=== PATIENT | female | born 1955 | race Caucasian/White ===

== ENCOUNTER → 2017-05-02 | Outpatient (CLI) | payer SELFPAY | PROVIDERS: Visit Provider Internal Medicine | DX: B39.4 Histoplasmosis capsulati, unspecified (principal); M06.9 Rheumatoid arthritis, unspecified | CPT/HCPCS: 71250 ==

== ENCOUNTER 2017-07-22 09:39 | Emergency (ER) | payer SELFPAY ==
[2017-07-22 10:05] VITALS: BP 121/85; PULSE 107; RESP 18; TEMP 38.1; O2SAT 99; BMI 23.0
--- NOTE | 2017-07-22 10:18 | HMH.EDUTC ---
[facility] [place] Disposition Clinical Impression: Viral gastroenteritis Disposition: Home, Self-Care Condition on Discharge: Good Instructions: DI for Viral Gastroenteritis -- Adult Additional Instructions: * Monitor Temp. Seek treatment if fever worsens. Tylenol every 4 hours as needed no more then 5 times a day or 4000mg in 24 hours and/or ibuprofen every 6 hours as needed no more then 3200mg in 24 hours (as long as your primary care doctor has told you that it is ok to take both) for fever/aches/pain. * Follow up immediately for new or worsening symptoms OR no noticeable improvement over the next 48 hours. * Increase fluids. Water, gatorade, powerade, juice OR pedialyte with limited formula/dairy in children. * No food is ok as long as you or your child is drinking. Once ready to eat, start bland. bananas, rice, applesauce, toast * Contagious until no diarrhea, vomiting, fever x 24 hours without medication * Avoid anti-diarrheals unless told otherwise. Best to let the virus run its course. * Zofran as needed. REMEMBER we gave you a dose here in clinic. Your urine showed trace blood and protein. As we discussed, could be a sign of something to do with your one kidney. No sign of UTI. First step would be to repeat u/a in 7-10 days so BE SURE to follow up with primary care in one week but sooner for new or worsening symptoms. Prescriptions: Ondansetron [Zofran 4mg ODT] 4 mg PO Q8H PRN #10 tab.rapdis PRN Reason: Vomiting Referrals: Tamy Jcakson APRN [Primary Care Provider] - (Follow up IMMEDIATELY for new or worsening symptoms OR no noticeable improvement over the next 48 hours. ALSO be sure to follow up for repeat UA in 7-10 days.) Forms: Work/School Release Time of Disposition: 11:19 Medical Decision Making - Satnam Inquiry Pt receiving controlled substance: No Vital Signs: 07/22/17 10:05 Temperature 100.5 F H Temperature Source Temporal Artery Scan Pulse Rate [Right Radial] 107 H Respiratory Rate 18 Blood Pressure [Right Arm] 121/85 Blood Pressure Mean [Right Arm] 97 02 Sat by Pulse Oximetry 99 Oxygen Delivery Method Room Air - Lab Data Lab results reviewed: Yes: I reviewed the patient's lab results. Lab Results 07/22/17 10:11: Influenza Type A Ag Negative, Influenza Type B Ag Negative 07/22/17 10:26: Urine Color Dark yellow, Urine Appearance Clear, Urine pH 6.0, Ur Specific [place] 1.030, Urine Protein 1+, Urine Glucose (UA) Negative, Urine Ketones Negative, Urine Blood Trace, Urine Nitrate Negative, Urine Bilirubin 1+ A, Urine Urobilinogen 0.2, Ur Leukocyte Esterase Negative Orders (Tests/Meds): ED MEDICATIONS Discontinued Medications Generic Name Dose Route Start Last Admin Trade Name Linda PRN Reason Stop Dose Admin Ondansetron HCl 4 mg 07/22/17 10:31 07/22/17 10:42 Zofran 4mg Odt SL 07/22/17 10:32 4 mg ONCE ONE Administration - Reevaluation(s) Time: 11:15 Reevaluation #1: pt reports she is feeling better. Zofran has helped. Nausea and cramps resolved. Sitting up and looks better. Discussed u/a and appropriate follow up. States + understanding and agrees to follow up with [facility] [place] HPI - General Stated complaint: vomiting,diarrhea Time Seen by Provider: 07/22/17 10:19 Mode of Arrival: Wheelchair Source of Information: Patient Limitations: No Limitations Description of Symptoms (Recalled from Triage Doc. by RN): PT C/O NAUSEA,VOMITING, AND DIARRHEA THAT STARTED LAST NIGHT. HEENT Symptoms (Recalled from RN notes): No Resp Symptoms (Recalled from RN notes): No Skin Symptoms (Recalled from RN notes): No MS Symptoms (Recalled from RN notes): No Functional Status (Recalled from RN notes): NA - History of Present Illness Provider Complaint: c/o n/v/d that started yesterday. Once while at work yesterday. Didn't think much of it. Worsened last night and vomited w/ diarrhea majority of night and this morning. Overnight felt weak but starting to feel somewhat better .
[2017-07-22 10:23] LABS: UTC Influenza A Antigen Negative (Negative); UTC Influenza B Antigen Negative (Negative)
--- NOTE | 2017-07-22 10:26 | ED_ITS ---
[facility] [place] Disposition Clinical Impression: Viral gastroenteritis Disposition: Home, Self-Care Condition on Discharge: Good Instructions: DI for Viral Gastroenteritis -- Adult Additional Instructions: * Monitor Temp. Seek treatment if fever worsens. Tylenol every 4 hours as needed no more then 5 times a day or 4000mg in 24 hours and/or ibuprofen every 6 hours as needed no more then 3200mg in 24 hours (as long as your primary care doctor has told you that it is ok to take both) for fever/aches/pain. * Follow up immediately for new or worsening symptoms OR no noticeable improvement over the next 48 hours. * Increase fluids. Water, gatorade, powerade, juice OR pedialyte with limited formula/dairy in children. * No food is ok as long as you or your child is drinking. Once ready to eat, start bland. bananas, rice, applesauce, toast * Contagious until no diarrhea, vomiting, fever x 24 hours without medication * Avoid anti-diarrheals unless told otherwise. Best to let the virus run its course. * Zofran as needed. REMEMBER we gave you a dose here in clinic. Your urine showed trace blood and protein. As we discussed, could be a sign of something to do with your one kidney. No sign of UTI. First step would be to repeat u/a in 7-10 days so BE SURE to follow up with primary care in one week but sooner for new or worsening symptoms. Prescriptions: Ondansetron [Zofran 4mg ODT] 4 mg PO Q8H PRN #10 tab.rapdis PRN Reason: Vomiting Referrals: Tamy Jackson APRN [Primary Care Provider] - (Follow up IMMEDIATELY for new or worsening symptoms OR no noticeable improvement over the next 48 hours. ALSO be sure to follow up for repeat UA in 7-10 days.) Forms: Work/School Release Time of Disposition: 11:19 Medical Decision Making - Satnam Inquiry Pt receiving controlled substance: No Vital Signs: 07/22/17 10:05 Temperature 100.5 F H Temperature Source Temporal Artery Scan Pulse Rate [Right Radial] 107 H Respiratory Rate 18 Blood Pressure [Right Arm] 121/85 Blood Pressure Mean [Right Arm] 97 02 Sat by Pulse Oximetry 99 Oxygen Delivery Method Room Air - Lab Data Lab results reviewed: Yes: I reviewed the patient's lab results. Lab Results 07/22/17 10:11: Influenza Type A Ag Negative, Influenza Type B Ag Negative 07/22/17 10:26: Urine Color Dark yellow, Urine Appearance Clear, Urine pH 6.0, Ur Specific [place] 1.030, Urine Protein 1+, Urine Glucose (UA) Negative, Urine Ketones Negative, Urine Blood Trace, Urine Nitrate Negative, Urine Bilirubin 1+ A, Urine Urobilinogen 0.2, Ur Leukocyte Esterase Negative Orders (Tests/Meds): ED MEDICATIONS Discontinued Medications Generic Name Dose Route Start Last Admin Trade Name Freq PRN Reason Stop Dose Admin Ondansetron HCl 4 mg 07/22/17 10:31 07/22/17 10:42 Zofran 4mg Odt SL 07/22/17 10:32 4 mg ONCE ONE Administration - Reevaluation(s) Time: 11:15 Reevaluation #1: pt reports she is feeling better. Zofran has helped. Nausea and cramps resolved. Sitting up and looks better. Discussed u/a and appropriate follow up. States + understanding and agrees to follow up with [facility] [place] HPI - General Stated complaint: vomiting,diarrhea Time Seen by Provider: 07/22/17 10:19 Mode of Arrival: Wheelchair Source of Information: Patient Limitations: No Limitations Description of Symptoms (Recalled from Triage Doc. by RN): PT C/O NAUSEA, VOMITING, AND DIARRH
[2017-07-22 10:57] LABS: Apearance,Urine Clear (Clear); Color,Urine Dark Yellow (Yellow)
[2017-07-22 10:58] LABS: Bilirubin,Urine 1+ (Negative); Blood, Urine Trace (Negative); Glucose,Urine (UA) Negative (Negative); Ketones,Urine Negative (Negative); Protein,Urine 1+ (Negative)
[2017-07-22 10:59] LABS: UTC Leukocyte Esterase,Urine Negative (Negative); UTC Nitrate,Urine Negative (Negative); Urobilinogen,Urine 0.2 EU/dl (0.2)
[2017-07-22 11:25] VITALS: BP 125/79; PULSE 98; RESP 20; TEMP 37.8; O2SAT 100
== END 2017-07-22 11:26 | disposition home or self-care (01) ==
PROVIDERS: Emergency Provider Nurse Practitioner Family; PCP Nurse Practitioner
DX: A08.4 Viral intestinal infection, unspecified (principal); I10 Essential (primary) hypertension
CPT/HCPCS: 81003; 87804; 99201

== ENCOUNTER → 2017-08-29 10:21 | Outpatient (POV) | payer SELFPAY ==
[2017-08-29 12:26] LABS: Alanine Aminotransferase 34 U/L (12-78); Alkaline Phosphatase 89 U/L (46-116); Aspartate Amino Transferase 33 U/L (15-37); Bilirubin,Direct 0.2 mg/dL (0.0-0.2); Bilirubin,Total 0.4 mg/dL (0.2-1.0); Total Protein,Serum 7.3 gm/dL (6.4-8.2)
[2017-09-01 16:24] LABS: Histoplasma Gal'mannan Ag Qn U 3.8 ng/mL (.); Histoplasma Gal'mannan Ag Ur Positive (<0.5 ng/mL)
== END ==
PROVIDERS: PCP Nurse Practitioner; Visit Provider Internal Medicine
DX: B39.4 Histoplasmosis capsulati, unspecified (principal); B39.3 Disseminated histoplasmosis capsulati; Z79.899 Other long term (current) drug therapy
CPT/HCPCS: 36415; 80076; 80299; 87385

== ENCOUNTER → 2018-12-11 10:20 | Outpatient (POV) | payer SELFPAY | PROVIDERS: Visit Provider Internal Medicine | DX: Z00.00 Encounter for general adult medical examination without abnormal findings (principal) ==

== ENCOUNTER → 2020-01-21 15:11 | Outpatient (POV) | payer BC, SELFPAY | PROVIDERS: Visit Provider Dermatology | DX: Z00.00 Encounter for general adult medical examination without abnormal findings (principal) ==

== ENCOUNTER → 2020-02-11 08:43 | Outpatient (POV) | payer BC, SELFPAY | PROVIDERS: Visit Provider Dermatology | DX: Z00.00 Encounter for general adult medical examination without abnormal findings (principal) ==

== ENCOUNTER 2021-01-28 18:21 | Emergency (ER) | payer BC, SELFPAY ==
[2021-01-28 18:28] VITALS: BP 139/62; PULSE 89; RESP 16; TEMP 37.7; O2SAT 97; BMI 22.8
--- NOTE | 2021-01-28 18:41 | HMH.EDUTC ---
[facility] [place] Disposition Clinical Impression: URI (upper respiratory infection) Qualifiers: URI type: unspecified URI Qualified Code(s): J06.9 - Acute upper respiratory infection, unspecified Disposition: Home, Self-Care Condition on Discharge: Good Instructions: Ondansetron, Cefdinir, DI for COVID-19 (Suspected or Confirmed ), Preventing the Spread of Coronavirus Discharge Instructions Additional Instructions: *Monitor Temp, Over the counter Motrin or Tylenol as directed/as needed Tylenol every 4 hours and Motrin every 6 hours (as long as your family doctor has told you that you can take it) for fever or pain. and straight to ER if unable to lower temp less than 101.0 after medication given *Warm salt water gargles may help to soothe the throat *Throat Lozenges *Warm fluids like tea with honey may help to soothe the throat *Sleep elevated *Humidifier/Vaporizer Drink extra fluids with and between meals. If you have difficulty drinking, try very small amounts of water or suck on ice chips. ? Avoid fruit juices, as these do not replace minerals and can actually increase diarrhea. ? Children and adults can use sports drinks to replenish electrolytes. Younger children and infants should use products formulated for children, like oral rehydration solutions. ? Eat food in small amounts and let your stomach recover. ? Get lots of rest. You may feel tired or weak. ? No greasy or fried foods for the next 24-48 hours BRAT diet Bananas Rice Apples and [place] ? Make sure to drink plenty of liquids ? Return if needed ? Straight to ER if any life threatening symptoms ? Zofran as prescribed ? Follow up with family doctor in the next 48-72 hours if no improvement or any worsening of symptoms Your throat swab was sent for culture. Those results are typically sent to your primary care. Be sure to follow up in 2-3 days with your family doctor/primary care physician if no improvement so they can review those result and treat if necessary. If you don?t have a primary care doctor, I recommend you get one but in the mean time, you will have to return to a walk in clinic Follow up IMMEDIATELY for new or worsening symptoms or no Noticeable improvement over the next 48-72 hours. 911 for difficulty breathing or swallowing You were tested for today for COVID19 your test result should be back in the next 24-48 hours, you was given handout on how to log onto the [facility] Portal tp check your results if you have trouble logging in or checking your results you may call the [facility] You were given a handout with instructions for Self Quarantine and Self isolation for while you wait on test results and what to do if they are positive If you are positive the Health Dept will be contacting you also Make sure to take your Vitamins Vit. C Vit D and Zinc if you can take them Prescriptions: Cefdinir [Omnicef 300mg Capsule] 300 mg PO BID #20 cap Transmission Status: Received by [id number] Ondansetron [Zofran 4mg ODT] 4 mg PO TIDP PRN #12 tab PRN Reason: Nausea [id number] Referrals: Thalia Calderon APRN [Primary Care Provider] - As needed Time of Disposition: 19:18 Medical Decision Making - Satnam Inquiry Pt receiving controlled substance: No Satnam was queried for this patient: No Vital Signs: 01/28/21 18:28 01/28/21 19:06 Temperature 100 F H 100 F H Temperature Source Oral Pulse Rate 89 Pulse Rate [Left] 89 Respiratory Rate 16 16 Blood Pressure 139/62 Blood Pressure [Right Arm] 139/62 Blood Pressure Mean [Right Arm] 87 02 Sat by Pulse Oximetry 97 - Lab Data Lab results reviewed: Yes: I reviewed the patient's lab results. Lab Results 01/28/21 19:05: Influenza Type A Ag Negative, Influenza Type B Ag Negative 01/28/21 19:05: Strep Scn Rapid Clinic Negative Orders (Tests/Meds): ED MEDICATIONS Discontinued Medications Generic Name Dose Route Start Last Admin Trade Name Freq PRN
[2021-01-28 19:06] VITALS: BP 139/62; PULSE 89; RESP 16; TEMP 37.7
[2021-01-28 19:18] LABS: UTC Influenza A Antigen Negative (Negative); UTC Influenza B Antigen Negative (Negative); UTC Strep Screen (Rapid) Negative (Negative)
== END 2021-01-28 19:33 | disposition home or self-care (01) ==
PROVIDERS: Emergency Provider Nurse Practitioner; PCP Nurse Practitioner Family
DX: U07.1 COVID-19 (principal); J06.9 Acute upper respiratory infection, unspecified; I10 Essential (primary) hypertension
CPT/HCPCS: 87804; 87880; 99203; C9803; G0463; U0003; U0005

== ENCOUNTER → 2022-06-07 10:36 | Outpatient (CLI) | payer BC, SELFPAY ==
--- NOTE | 2022-06-07 10:42 | US_ITS ---
FINAL REPORT CLINICAL HISTORY: HYPOTHYROID FINDINGS: THYROID ULTRASOUND Thyroid gland is normal size. The parenchyma shows normal echogenicity. There is an 8 x 7 x 4 mm mostly solid isoechoic TI-RADS 3 nodule in the right lobe of the thyroid. No other nodules are identified. IMPRESSION: Single 8 mm TI-RADS 3 nodule. No follow-up recommended per TI-RADS criteria. Reviewed, Interpreted and Dictated by Darrell Conteh III, MD Transcribed by Yan Velasco Authenticated and [facility]
== END ==
LOC: RAD 10:36
PROVIDERS: PCP Nurse Practitioner Family; Visit Provider Nurse Practitioner Family
DX: E03.9 Hypothyroidism, unspecified (principal)
CPT/HCPCS: 76536

== ENCOUNTER 2022-11-25 13:04 | Emergency (ER) | payer BC, SELFPAY ==
[2022-11-25 13:05] VITALS: BP 160/72; PULSE 92; RESP 18; TEMP 37.3; O2SAT 99; BMI 22.3
[2022-11-25 13:11] VITALS: BP 160/72; PULSE 90; O2SAT 98
[2022-11-25 13:30] VITALS: BP 158/69; PULSE 90; O2SAT 99
--- NOTE | 2022-11-25 13:45 | CA_ITS ---
FINAL REPORT CLINICAL HISTORY: non traumatic RLE pain PAIN EXTENDING FROM RT HIP TO RT KNEE, FINDINGS: DUPLEX VENOUS SONOGRAPHY OF THE RIGHT LOWER EXTREMITY Multiple transverse and longitudinal scans were performed of the femoropopliteal deep venous system, with augmentation and compression maneuvers. Normal phasic flow was noted in the visualized deep venous system. No intraluminal increased echogenicity is noted to suggest thrombus. There is normal compression and augmentation of the venous structures. No abnormal venous collaterals are seen. Note is made of a popliteal cyst. IMPRESSION: No evidence of deep venous thrombosis of the right lower extremity. Reviewed, Interpreted and Dictated by Pamela Fletcher MD Transcribed by Beverley Mays Authenticated and [facility]
--- NOTE | 2022-11-25 13:45 | XR_ITS ---
FINAL REPORT CLINICAL HISTORY: non traumatic RLE pain COMPARISON: None FINDINGS: AP and frog leg views of the right hip were obtained. There is no prior exam for comparison. There is no acute osseous abnormality of the pelvis or right hip. Joint space is preserved. Soft tissues are within normal limits. IMPRESSION: No acute osseous abnormality of the right hip. If pain persists, MR is recommended. Reviewed, Interpreted and Dictated by Pamela Fletcher MD Transcribed by Vera Gaxiola Authenticated and [facility]
--- NOTE | 2022-11-25 13:45 | XR_ITS ---
FINAL REPORT CLINICAL HISTORY: non traumatic RLE pain COMPARISON: None FINDINGS: Two views of the right femur were obtained. There is no acute osseous abnormality of the right femur. Hip and knee are intact. There is no acute soft tissue abnormality. IMPRESSION: No acute osseous abnormality. Reviewed, Interpreted and Dictated by Pamela Fletcher MD Transcribed by Vera Gaxiola Authenticated and [facility]
--- NOTE | 2022-11-25 13:45 | PC.NURSE ---
Provider at bedside.
--- NOTE | 2022-11-25 13:48 | HMH.EDGENADL ---
Discharge Plan Disposition Patient Disposition: Home, Self-Care Prescriptions Prescriptions: No Action prednisone 5 MG tablet 5 tab PO DAILY Patient Comments: TAKE 1 TABLET BY MOUTH EVERY DAY levothyroxine 100 tablet 100 mg PO DAILY metoprolol tartrate 50 MG tablet 50 mg PO DAILY hydroxychloroquine 200 MG tablet 200 mg PO DAILY ondansetron 4 MG tablet,disintegrating 4 mg PO TIDP PRN (Reason: Nausea) Qty: 12 0RF cefdinir 300 MG capsule 300 mg PO BID Qty: 20 0RF Referrals Follow up/Referrals: Thalia Calderon APRN [Primary Care Provider] - See instructions Activity Restrictions/Add. 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 Your sodium was also little bit depressed at 128. I would recommend you follow-up with the primary care doctor regarding your low sodium please make sure you are drinking plenty of fluids. Return with any worsening symptoms including fever redness or other concerns. Clinical Impressions Clinical Impression: Myalgia, pelvic region and thigh, Acute hyponatremia, Arthritis of hip Discharge ED Provider: Demetri Tse General Adult HPI General Chief complaint: PAIN Stated complaint: pain in Rt hip to knee Time Seen by Provider: 11/25/22 13:33 Mode of Arrival: Wheelchair Source of Information: Patient Limitations: No Limitations Description of Symptoms (Recalled from ER Triage Doc. by RN): c/o pain that goes from her right groin to her right knee, denies any injury, extremity is equal to left extremity in size, color and warmth. Some nausea due to the pain. Family is concerned for a blood clot due to pt having a pacemaker. History of Present Illness HPI narrative: 67-year-old female here with right lower extremity pain she states that she has pain radiating from her right hip down to her knee with significant tenderness in the anterior and lateral aspect of her muscle bellies. No swelling no fevers or chills no redness or warmth to the area. No change in urine output. No recent change in medications. She does walk extend amounts of time at [employer] but she had this job for 20 years and this is not a new different contacts for her. No history of any DVTs or PEs. No vomiting or diarrhea. Related Data Home Medications Medication Instructions Recorded Confirmed hydroxychloroquine 200 mg tablet 200 mg PO DAILY bp 02/12/19 03/19/19 levothyroxine 100 mcg tablet 100 mg PO DAILY hormone 02/12/19 03/19/19 metoprolol tartrate 50 mg tablet 50 mg PO DAILY blood pressure 02/12/19 03/19/19 prednisone 5 mg tablet 5 tab PO DAILY Arthritis 02/12/19 03/19/19 Previous Rx's Medication Instructions Recorded cefdinir 300 mg capsule 300 mg PO BID #20 caps 01/28/21 ondansetron 4 mg disintegrating 4 mg PO TIDP PRN Nausea #12 tabs 01/28/21 tablet Allergies Allergy/AdvReac Type Severity Reaction Status Date / Time No Known Allergies Allergy Verified 02/12/19 08:15 [facility] Disclaimer: The information contained in this section may have been updated after the patient was seen, as this information can be updated by other users. Social History Smoking Status: Never smoker alcohol intake: never current occupational status: employed Travel in the last 8 weeks: None household members: none housing: house current occupation: [employer] current occupational exposures/hazards: No caffeine: Yes ROS Obtained: Yes All systems reviewed & no additional complaints except as documented Physical Exam General General appearance: alert Respiratory Respiratory exam: Present normal lung sounds bilaterally Cardiovascular Cardiovascular exam: Present regular rate; Absent tachycardia Extremities Exam Extremities exam: Present other (Pain with internal/external rotation on the lateral aspect of the right hip no swelling or soft tissue abnormalities no warmth or erythem
--- NOTE | 2022-11-25 13:49 | PC.NURSE ---
vascular aware of doppler of lower right ext
[2022-11-25 14:00] LABS: Basophils % 0.4 % (0.1-2.0); Eosinophils # 0.1 K/mm3 (0.0-0.4); Eosinophils % 0.9 % (0.1-12.0); Hemoglobin 11.8 g/dL (12.2-16.2); Lymphocytes # 0.9 K/mm3 (0.7-4.5); Mean Corpuscular HGB Conc 33.7 g/dL (31.8-35.4); Mean Corpuscular Hemoglobin 31.4 pg (27.0-31.2); Mean Corpuscular Volume 93.4 fl (81-99); Mean Platelet Volume 6.4 fl (7.4-10.4); Monocytes # 0.8 K/mm3 (0.1-1.0); Monocytes % 8.7 % (1.7-9.3); Neutrophils # 7.3 K/mm3 (1.8-7.8); Neutrophils % 80.1 % (37.0-80.0); Platelet Count 383 K/mm3 (142-424); Red Blood Count 3.75 M/mm3 (4.20-5.40); Red Cell Distribution Width 13.8 % (11.5-17.5); White Blood Count 9.1 K/mm3 (4.8-10.8)
--- NOTE | 2022-11-25 14:09 | PC.NURSE ---
Pt assisted into bed. Additional warm blanket provided. Pt updated on plan of care. Vascular at bedside.
[2022-11-25 14:14] LABS: Alanine Aminotransferase 21 U/L (12-78); Albumin Level 4.2 g/dl (3.5-5.0); Albumin/Globulin Ratio 1.1 (1.1-1.8); Alkaline Phosphatase 112 U/L (38-126); Anion Gap 9.6 mEq/L (5-15); Aspartate Amino Transferase 40 U/L (14-36); Bilirubin,Total 0.4 mg/dl (0.2-1.3); Blood Urea Nitrogen 15 mg/dl (7-17); Calcium 9.9 mg/dl (8.4-10.2); Carbon Dioxide 26 mmol/L (22.0-30.0); Chloride 97 mmol/L (98-107); Creatine Kinase 123 U/L (30-135); Creatinine Clearance Estimated 48 mL/min (50-200); Estimated Glomerular Filt Rate 83 ml/min (>60); GFR (African American) 100 ML/MIN (>60); Globulin 3.7 g/dL (1.3-3.2); Glucose 108 mg/dl (74-100); Magnesium 1.7 mg/dl (1.6-2.3); Potassium 4.6 mmoL/L (3.5-5.1); Sodium 128 mmol/L (136-145); Total Protein,Serum 7.9 g/dl (6.3-8.2)
--- NOTE | 2022-11-25 14:32 | PC.NURSE ---
ROUNDED ON PT HELPED PUT PANTS BACK ON NOTHING ELSE NEEDED CALL LIGHT AT BS
[2022-11-25 15:37] VITALS: BP 158/69; PULSE 90; RESP 18; TEMP 37.3; O2SAT 99
== END 2022-11-25 15:39 | disposition home or self-care (01) ==
PROVIDERS: Emergency Provider Student in an Organized Health Care Education/Training Program; PCP Nurse Practitioner Family
DX: E87.1 Hypo-osmolality and hyponatremia; M16.11 Unilateral primary osteoarthritis, right hip; M79.651 Pain in right thigh
CPT/HCPCS: 73502; 73552; 80053; 82550; 83735; 85025; 93971; 96360; 99285

== ENCOUNTER 2023-06-01 13:39 | Emergency (ER) | payer BC, SELFPAY ==
[2023-06-01] VITALS (25 sets, daily range): BP systolic 68–146; BP diastolic 33–85; PULSE 47–92; RESP 14–22; TEMP 36.6–36.7; O2SAT 85–100; BMI 42.0; BMI 22.3
--- NOTE | 2023-06-01 13:43 | ECG_ITS ---
APPROVED REPORT Exam: Resting ECG HR:65 bpm ECG Measurements Heart Rate 65 AXES WY 209 P 72 QRSd 147 QRS 99 QT 473 T 68 QTc 484 Conclusion ELECTRONIC VENTRICULAR PACEMAKER ABNORMAL RHYTHM ECG UNCONFIRMED REPORT Electronically signed by : Michele Mckinney MD 06/03/2023 13:42:19
[2023-06-01 14:01] LABS: Chloride 102 mmol/L (98-107); Potassium 4.1 mmoL/L (3.5-5.1); Sodium 133 mmol/L (136-145)
[2023-06-01 14:03] LABS: Blood Urea Nitrogen 21 mg/dl (7-17); Creatinine Clearance Estimated 36 mL/min (50-200); Estimated Glomerular Filt Rate 40 ml/min (>60); GFR (African American) 49 ML/MIN (>60)
[2023-06-01 14:04] LABS: Alanine Aminotransferase 24 U/L (12-78); Albumin Level 4.2 g/dl (3.5-5.0); Albumin/Globulin Ratio 1.1 (1.1-1.8); Alkaline Phosphatase 81 U/L (38-126); Anion Gap 14.1 mEq/L (5-15); Aspartate Amino Transferase 47 U/L (14-36); Bilirubin,Total 0.7 mg/dl (0.2-1.3); Carbon Dioxide 21 mmol/L (22.0-30.0); Globulin 3.7 g/dL (1.3-3.2); Glucose 138 mg/dl (74-100); Total Protein,Serum 7.9 g/dl (6.3-8.2)
[2023-06-01 14:09] LABS: Basophils # 0.1 K/mm3 (0-0.2); Basophils % 0.5 % (0.1-2.0); Eosinophils # 0.1 K/mm3 (0.0-0.4); Eosinophils % 0.9 % (0.1-12.0); Hematocrit 38.8 % (37.0-47.0); Hemoglobin 12.6 g/dL (12.2-16.2); Lymphocytes # 2.5 K/mm3 (0.7-4.5); Lymphocytes % 24.1 % (10-50); Mean Corpuscular HGB Conc 32.4 g/dL (31.8-35.4); Mean Corpuscular Hemoglobin 30.6 pg (27.0-31.2); Mean Corpuscular Volume 94.4 fl (81-99); Mean Platelet Volume 7.7 fl (7.4-10.4); Monocytes # 0.6 K/mm3 (0.1-1.0); Monocytes % 5.9 % (1.7-9.3); Neutrophils # 7.2 K/mm3 (1.8-7.8); Neutrophils % 68.6 % (37.0-80.0); Platelet Count 437 K/mm3 (142-424); Red Blood Count 4.11 M/mm3 (4.20-5.40); Red Cell Distribution Width 17.5 % (11.5-17.5); White Blood Count 10.5 K/mm3 (4.8-10.8)
[2023-06-01] MEDS: LACTATED RINGERS 1000ML 1,000 ML 999 ML IV ×2 (15:24→17:46)
--- NOTE | 2023-06-01 15:47 | ED_ITS ---
Discharge Plan Disposition Patient Disposition: Home, Self-Care Condition: Good Prescriptions Prescriptions: New ondansetron HCl 4 mg tablet 4 mg PO Q8H PRN (Reason: nausea and vomiting) 4 Days Qty: 12 0RF No Action prednisone 5 MG tablet 5 tab PO DAILY Patient Comments: TAKE 1 TABLET BY MOUTH EVERY DAY levothyroxine 100 tablet 100 mg PO DAILY metoprolol tartrate 50 MG tablet 50 mg PO DAILY hydroxychloroquine 200 MG tablet 200 mg PO DAILY ondansetron 4 MG tablet,disintegrating 4 mg PO TIDP PRN (Reason: Nausea) Qty: 12 0RF cefdinir 300 MG capsule 300 mg PO BID Qty: 20 0RF Referrals Follow up/Referrals: Tamy Jackson APRN [Primary Care Provider] - See instructions Activity Restrictions/Add. Instructions Additional Instructions/Restrictions: You were evaluated in the emergency department today. Please make sure that you stay hydrated. 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 Return to the emergency department for new or worsening symptoms. Clinical Impressions Clinical Impression: Dehydration, Vomiting and diarrhea, Syncope Instructions Patient Instructions: DI for Syncope in Adults (Fainting), DI for Dehydration -- Adult, DI for Diarrhea and Traveler's Diarrhea -- Adult, DI for Vomiting -- Adult Discharge ED Provider: Marie Melchor General Adult HPI <Yinka Villalba MD - Last Filed: 06/01/23 15:53> General Chief complaint: Weakness Stated complaint: syncope Time Seen by Provider: 06/01/23 14:00 Mode of Arrival: Ambulatory Source of Information: Patient Limitations: No Limitations Description of Symptoms (Recalled from ER Triage Doc. by RN): pt presents to ED with c/o fatigue, weakness. pt was out to eat with her friends and became weak. pt reports that she does take BP meds, and took them today. pt was in the car getting ready to go take another friend home and pt passed out , friend brought pt to ED. History of Present Illness HPI narrative: 68-year-old female history of hypertension, hyperlipidemia, hypothyroidism, CAD heart block pacemaker in place presenting with syncope. Patient states that she was in [employer] when she felt hot, lightheaded, tried to get to her car, but made onto the parking lot. A friend with her was able to help her down to the ground, she did not hit her head, but she did lose consciousness. Patient's friend brought her to the ED. Patient continuously lightheaded and confused on arrival, but shortly thereafter perked up and was much more herself. Denies chest pain, shortness of breath, nausea or vomiting, or any other concerns. Did not feel her pacemaker fired Related Data Home Medications Medication Instructions Recorded Confirmed hydroxychloroquine 200 mg tablet 200 mg PO DAILY bp 02/12/19 03/19/19 levothyroxine 100 mcg tablet 100 mg PO DAILY hormone 02/12/19 03/19/19 metoprolol tartrate 50 mg tablet 50 mg PO DAILY blood pressure 02/12/19 03/19/19 prednisone 5 mg tablet 5 tab PO DAILY Arthritis 02/12/19 03/19/19 Previous Rx's Medication Instructions Recorded cefdinir 300 mg capsule 300 mg PO BID #20 caps 01/28/21 ondansetron 4 mg disintegrating 4 mg PO TIDP PRN Nausea #12 tabs 01/28/21 tablet ondansetron HCl 4 mg tablet 4 mg PO Q8H PRN nausea and 06/01/23 vomiting 4 days #12 tabs Allergies Allergy/AdvReac Type Severity Reaction Status Date / Time No Known Allergies Allergy Verified 02/12/19 08:15 [facility] <Yinka Villalba MD - Last Filed: 06/01/23 15:53> [facility] Disclaimer: The information contained in this section may have been updated after the patient was seen, as this information can be updated by other users. Social History Smoking Status: Never smoker alcohol intake: never current occupational status: employed Travel in the last 8 weeks: None household members: none housing: house current occupation: [place] current occupational exposures/hazards: No caffeine: Yes <Yinka Villalba MD - Last Filed: 06/01/23 15:53> ROS Obtained: Yes All systems reviewed & no additional complaints except as documented Physical Exam <Yinka Villalba MD - Last Filed: 06/01/23 15:53> General General appearance: alert and in no apparent distress Head Head exam: atraumatic and normocephalic Eye Eye exam: Present normal appearance, PERRL and EOMI ENT ENT exam: Present mucous membranes moist Neck Neck exam: Present normal inspection, full ROM and trachea midline Respiratory Respiratory exam: Absent respiratory distress, wheezes, stridor, accessory muscle use or prolonged expiratory phase Cardiovascular Cardiovascular exam: Present normal rhythm Abdominal Exam Abdominal exam: Present soft; Absent distention, tenderness, guarding, rebound or rigidity Extremities Exam Extremities exam: Absent edema Neurological Exam Neurological exam: Present alert, oriented X3, CN II-XII intact and normal gait; Absent motor sensory deficit Skin Skin exam: Present warm and dry; Absent diaphoresis or erythema Medical Decision Making <Yinka Villalba MD - Last Filed: 06/01/23 15:53> Medical Records Medical records reviewed: Yes I reviewed the patient's medical records. Satnam Inquiry Pt receiving controlled substance: No Satnam was queried for this patient: No Vital Signs: 06/01/23 13:40 06/01/23 13:45 06/01/23 13:49 Temperature 97.9 F Temperature Source Oral Pulse Rate 65 61 Pulse Rate [Left Radial] 47 L Pulse Rate [Orthostatic Lying Right Radial] Pulse Rate [Orthostatic Sitting Right Radial] Pulse Rate [Orthostatic Standing Right Radial] Respiratory Rate 14 Blood Pressure 76/36 L 69/41 L Blood Pressure [Orthostatic Lying Right Arm] Blood Pressure [Orthostatic Sitting Right Arm] Blood Pressure [Orthostatic Standing Right Arm] Blood Pressure [Right Arm] 76/36 L Blood Pressure Mean Blood Pressure Mean [Right Arm] 49 Blood Pressure Source 02 Sat by Pulse Oximetry 94 L 96 97 Oxygen Delivery Method Room Air Room Air Room Air 06/01/23 13:53 06/01/23 13:53 06/01/23 13:56 Temperature Temperature Source Pulse Rate 60 61 60 Pulse Rate [Left Radial] Pulse Rate [Orthostatic Lying Right Radial] Pulse Rate [Orthostatic Sitting Right Radial] Pulse Rate [Orthostatic Standing Right Radial] Respiratory Rate Blood Pressure 80/37 L 73/33 L 99/37 L Blood Pressure [Orthostatic Lying Right Arm] Blood Pressure [Orthostatic Sitting Right Arm] Blood Pressure [Orthostatic Standing Right Arm] Blood Pressure [Right Arm] Blood Pressure Mean 49 48 Blood Pressure Mean [Right Arm] Blood Pressure Source Manual Cuff/ Auscultation 02 Sat by Pulse Oximetry 97 98 97 Oxygen Delivery Method Room Air Room Air Room Air 06/01/23 14:00 06/01/23 14:10 06/01/23 14:20 Temperature Temperature Source Pulse Rate 65 61 68 Pulse Rate [Left Radial] Pulse Rate [Orthostatic Lying Right Radial] Pulse Rate [Orthostatic Sitting Right Radial] Pulse Rate [Orthostatic Standing Right Radial] Respiratory Rate Blood Pressure 106/43 L 120/51 L 83/64 L Blood Pressure [Orthostatic Lying Right Arm] Blood Pressure [Orthostatic Sitting Right Arm] Blood Pressure [Orthostatic Standing Right Arm] Blood Pressure [Right Arm] Blood Pressure Mean Blood Pressure Mean [Right Arm] Blood Pressure Source 02 Sat by Pulse Oximetry 95 98 96 Oxygen Delivery Method Room Air Room Air Room Air 06/01/23 14:31 06/01/23 14:40 06/01/23 14:50 Temperature Temperature Source Pulse Rate 63 64 66 Pulse Rate [Left Radial] Pulse Rate [Orthostatic Lying Right Radial] Pulse Rate [Orthostatic Sitting Right Radial] Pulse Rate [Orthostatic Standing Right Radial] Respiratory Rate Blood Pressure 146/46 H 142/55 H 132/65 Blood Pressure [Orthostatic Lying Right Arm] Blood Pressure [Orthostatic Sitting Right Arm] Blood Pressure [Orthostatic Standing Right Arm] Blood Pressure [Right Arm] Blood Pressure Mean Blood Pressure Mean [Right Arm] Blood Pressure Source 02 Sat by Pulse Oximetry 100 100 100 Oxygen Delivery Method Room Air Room Air Room Air 06/01/23 15:00 06/01/23 15:00 06/01/23 15:10 Temperature Temperature Source Pulse Rate 67 67 60 Pulse Rate [Left Radial] Pulse Rate [Orthostatic Lying Right Radial] Pulse Rate [Orthostatic Sitting Right Radial] Pulse Rate [Orthostatic Standing Right Radial] Respiratory Rate Blood Pressure 118/47 L 144/56 H Blood Pressure [Orthostatic Lying Right Arm] Blood Pressure [Orthostatic Sitting Right Arm] Blood Pressure [Orthostatic Standing Right Arm] Blood Pressure [Right Arm] Blood Pressure Mean 72 Blood Pressure Mean [Right Arm] Blood Pressure Source 02 Sat by Pulse Oximetry 98 99 99 Oxygen Delivery Method Room Air Room Air Room Air 06/01/23 15:21 06/01/23 15:30 06/01/23 15:41 Temperature Temperature Source Pulse Rate 64 73 62 Pulse Rate [Left Radial] Pulse Rate [Orthostatic Lying Right Radial] Pulse Rate [Orthostatic Sitting Right Radial] Pulse Rate [Orthostatic Standing Right Radial] Respiratory Rate Blood Pressure 118/49 L 112/58 L 100/46 L Blood Pressure [Orthostatic Lying Right Arm] Blood Pressure [Orthostatic Sitting Right Arm] Blood Pressure [Orthostatic Standing Right Arm] Blood Pressure [Right Arm] Blood Pressure Mean Blood Pressure Mean [Right Arm] Blood Pressure Source 02 Sat by Pulse Oximetry 99 98 97 Oxygen Delivery Method Room Air Room Air Room Air 06/01/23 15:50 06/01/23 16:00 06/01/23 17:10 Temperature Temperature Source Pulse Rate 62 61 92 H Pulse Rate [Left Radial] Pulse Rate [Orthostatic Lying Right Radial] Pulse Rate [Orthostatic Sitting Right Radial] Pulse Rate [Orthostatic Standing Right Radial] Respiratory Rate 22 Blood Pressure 89/52 L 106/55 L 110/48 L Blood Pressure [Orthostatic Lying Right Arm] Blood Pressure [Orthostatic Sitting Right Arm] Blood Pressure [Orthostatic Standing Right Arm] Blood Pressure [Right Arm] Blood Pressure Mean 68 Blood Pressure Mean [Right Arm] Blood Pressure Source 02 Sat by Pulse Oximetry 97 98 98 Oxygen Delivery Method Room Air Room Air 06/01/23 17:32 06/01/23 17:40 06/01/23 18:00 Temperature Temperature Source Pulse Rate 72 61 60 Pulse Rate [Left Radial] Pulse Rate [Orthostatic Lying Right Radial] Pulse Rate [Orthostatic Sitting Right Radial] Pulse Rate [Orthostatic Standing Right Radial] Respiratory Rate 18 18 20 Blood Pressure 68/44 L 140/55 L 138/56 L Blood Pressure [Orthostatic Lying Right Arm] Blood Pressure [Orthostatic Sitting Right Arm] Blood Pressure [Orthostatic Standing Right Arm] Blood Pressure [Right Arm] Blood Pressure Mean 48 83 83 Blood Pressure Mean [Right Arm] Blood Pressure Source 02 Sat by Pulse Oximetry 85 L 97 98 Oxygen Delivery Method 06/01/23 18:20 06/01/23 18:33 06/01/23 19:12 Temperature 98.0 F Temperature Source Pulse Rate 63 64 Pulse Rate [Left Radial] Pulse Rate [Orthostatic Lying Right Radial] 70 Pulse Rate [Orthostatic Sitting Right Radial] 64 Pulse Rate [Orthostatic Standing Right Radial] 67 Respiratory Rate 18 18 Blood Pressure 138/57 L 144/67 H Blood Pressure [Orthostatic Lying Right Arm] 113/85 Blood Pressure [Orthostatic Sitting Right Arm] 103/72 L Blood Pressure [Orthostatic Standing Right Arm] 108/65 L Blood Pressure [Right Arm] Blood Pressure Mean 88 Blood Pressure Mean [Right Arm] Blood Pressure Source 02 Sat by Pulse Oximetry 99 Oxygen Delivery Method Room Air Lab Data Lab Results 06/01/23 13:48: WBC 10.5, RBC 4.11 L, Hgb 12.6, Hct 38.8, MCV 94.4, MCH 30.6, MCHC 32.4, RDW 17.5, Plt Count 437 H, MPV 7.7, Neut % (Auto) 68.6, Lymph % (Auto) 24.1, Pitkin % (Auto) 5.9, Eos % (Auto) 0.9, Baso % (Auto) 0.5, Neut # (Auto) 7.2, Lymph # (Auto) 2.5, Pitkin # (Auto) 0.6, Eos # (Auto) 0.1, Baso # (Auto) 0.1, Sodium 133 L, Potassium 4.1, Chloride 102, Carbon Dioxide 21 L, Anion Gap 14.1, BUN 21 H, Creatinine 1.30 H, Estimated Creat Clear 36, Estimated GFR 40 L, Est GFR ( Amer) 49 L, Glucose 138 H, Calcium 10.0, Total Bilirubin 0.7, AST 47 H, ALT 24, Alkaline Phosphatase 81, Troponin I 0.02, NT-Pro-B Natriuret Pep 411 H, Total Protein 7.9, Albumin 4.2, Globulin 3.7 H, Albumin/Globulin Ratio 1.1 06/01/23 17:11: Troponin I 0.02, SARS-CoV-2 (PCR) Not detected, Influenza A Untype (PCR) Not detected, Influenza Type B (PCR) Not detected 06/01/23 13:48 06/01/23 13:48 Orders (Tests/Meds): ED MEDICATIONS Discontinued Medications Generic Name Dose Route Start Last Admin Trade Name Freq PRN Reason Stop Dose Admin Lactated Ringer's 1,000 mls @ 999 mls/hr 06/01/23 13:40 06/01/23 15:24 Lactated Ringer's 1000 Ml Bag IV 06/01/23 14:40 999 mls/hr .Q1H1M ONE Administration Lactated Ringer's 1,000 mls @ 999 mls/hr 06/01/23 17:10 06/01/23 17:46 Lactated Ringer's 1000 Ml Bag IV 06/01/23 18:10 999 mls/hr .Q1H1M ONE Administration Ondansetron HCl 4 mg 06/01/23 17:10 06/01/23 17:46 Ondansetron 4mg/2ml Vial IV 06/01/23 17:11 4 mg ONCE ONE Administration Ondansetron HCl 4 mg 06/01/23 19:06 06/01/23 19:12 Ondansetron 4mg/2ml Vial IV 06/01/23 19:07 4 mg ONCE ONE Administration ORDERS Category Date Time Status Brain Natriuretic Peptide Stat Lab 06/01/23 13:48 Completed CBC w/Auto Diff [Complete Blood Count Auto Diff] Stat Lab 06/01/23 13:48 Co mpleted CMP [Comprehensive Metabolic Panel] Stat Lab 06/01/23 13:48 Completed Rapid PCR Covid and Flu A/B Stat Lab 06/01/23 17:11 Completed Trop I [Troponin I] Stat Lab 06/01/23 13:48 Completed Troponin I Q3H Lab 06/01/23 17:11 Completed Troponin I Q3H Lab 06/01/23 20:30 Ordered Medical Decision Narrative: 68-year-old female history of hypertension, hyperlipidemia, hypothyroidism, CAD heart block pacemaker in place presenting with syncope. Patient states that she was in [employer] when she felt hot, lightheaded, tried to get to her car, but made onto the parking lot. A friend with her was able to help her down to the [place], she did not hit her head, but she did lose consciousness. Patient's friend brought her to the ED. Patient continuously lightheaded and confused on arrival, but shortly thereafter perked up and was much more herself. Denies chest pain, shortness of breath, nausea or vomiting, or any other concerns. Did not feel her pacemaker fire. History was obtained via conversation with patient. On arrival, patient hemodynamically stable, alert, oriented x4, appropriate, GCS 15, moving all extremities spontaneously, pupils equal and reactive to light. Full physical exam performed and significant for well-appearing woman in no acute distress, neurologically intact. Tired appearing, pale on my initial evaluation, reevaluation with patient looking and feeling much better. Cardiopulmonary exam within normal limits, no lower extremity edema. Differential includes orthostatic, vasovagal, medication induced, ACS, [place], arrhythmia, metabolic, endocrinologic, among others. Patient was given fluid bolus for symptomatic management and correction of underlying abnormalities. Workup independently interpreted and significant for nonactionable CBC. Patient does have elevated creatinine at 1.3 up from normal baseline. See radiology read for full review of final results. Independent interpretation of EKG shows ventricularly paced rhythm 65 beats a minute which is Sgarbossa negative and no ST or T wave changes concerning for acute ischemia. Right axis deviation. On reevaluation, patient feeling much better after fluids. Prior to cardiac labs and disposition, care handed off to oncoming physician. <Marie Melchor, DO - Last Filed: 06/01/23 20:10> Vital Signs: 06/01/23 13:40 06/01/23 13:45 06/01/23 13:49 Temperature 97.9 F Temperature Source Oral Pulse Rate 65 61 Pulse Rate [Left Radial] 47 L Pulse Rate [Orthostatic Lying Right Radial] Pulse Rate [Orthostatic Sitting Right Radial] Pulse Rate [Orthostatic Standing Right Radial] Respiratory Rate 14 Blood Pressure 76/36 L 69/41 L Blood Pressure [Orthostatic Lying Right Arm] Blood Pressure [Orthostatic Sitting Right Arm] Blood Pressure [Orthostatic Standing Right Arm] Blood Pressure [Right Arm] 76/36 L Blood Pressure Mean Blood Pressure Mean [Right Arm] 49 Blood Pressure Source 02 Sat by Pulse Oximetry 94 L 96 97 Oxygen Delivery Method Room Air Room Air Room Air 06/01/23 13:53 06/01/23 13:53 06/01/23 13:56 Temperature Temperature Source Pulse Rate 60 61 60 Pulse Rate [Left Radial] Pulse Rate [Orthostatic Lying Right Radial] Pulse Rate [Orthostatic Sitting Right Radial] Pulse Rate [Orthostatic Standing Right Radial] Respiratory Rate Blood Pressure 80/37 L 73/33 L 99/37 L Blood Pressure [Orthostatic Lying Right Arm] Blood Pressure [Orthostatic Sitting Right Arm] Blood Pressure [Orthostatic Standing Right Arm] Blood Pressure [Right Arm] Blood Pressure Mean 49 48 Blood Pressure Mean [Right Arm] Blood Pressure Source Manual Cuff/ Auscultation 02 Sat by Pulse Oximetry 97 98 97 Oxygen Delivery Method Room Air Room Air Room Air 06/01/23 14:00 06/01/23 14:10 06/01/23 14:20 Temperature Temperature Source Pulse Rate 65 61 68 Pulse Rate [Left Radial] Pulse Rate [Orthostatic Lying Right Radial] Pulse Rate [Orthostatic Sitting Right Radial] Pulse Rate [Orthostatic Standing Right Radial] Respiratory Rate Blood Pressure 106/43 L 120/51 L 83/64 L Blood Pressure [Orthostatic Lying Right Arm] Blood Pressure [Orthostatic Sitting Right Arm] Blood Pressure [Orthostatic Standing Right Arm] Blood Pressure [Right Arm] Blood Pressure Mean Blood Pressure Mean [Right Arm] Blood Pressure Source 02 Sat by Pulse Oximetry 95 98 96 Oxygen Delivery Method Room Air Room Air Room Air 06/01/23 14:31 06/01/23 14:40 06/01/23 14:50 Temperature Temperature Source Pulse Rate 63 64 66 Pulse Rate [Left Radial] Pulse Rate [Orthostatic Lying Right Radial] Pulse Rate [Orthostatic Sitting Right Radial] Pulse Rate [Orthostatic Standing Right Radial] Respiratory Rate Blood Pressure 146/46 H 142/55 H 132/65 Blood Pressure [Orthostatic Lying Right Arm] Blood Pressure [Orthostatic Sitting Right Arm] Blood Pressure [Orthostatic Standing Right Arm] Blood Pressure [Right Arm] Blood Pressure Mean Blood Pressure Mean [Right Arm] Blood Pressure Source 02 Sat by Pulse Oximetry 100 100 100 Oxygen Delivery Method Room Air Room Air Room Air 06/01/23 15:00 06/01/23 15:00 06/01/23 15:10 Temperature Temperature Source Pulse Rate 67 67 60 Pulse Rate [Left Radial] Pulse Rate [Orthostatic Lying Right Radial] Pulse Rate [Orthostatic Sitting Right Radial] Pulse Rate [Orthostatic Standing Right Radial] Respiratory Rate Blood Pressure 118/47 L 144/56 H Blood Pressure [Orthostatic Lying Right Arm] Blood Pressure [Orthostatic Sitting Right Arm] Blood Pressure [Orthostatic Standing Right Arm] Blood Pressure [Right Arm] Blood Pressure Mean 72 Blood Pressure Mean [Right Arm] Blood Pressure Source 02 Sat by Pulse Oximetry 98 99 99 Oxygen Delivery Method Room Air Room Air Room Air 06/01/23 15:21 06/01/23 15:30 06/01/23 15:41 Temperature Temperature Source Pulse Rate 64 73 62 Pulse Rate [Left Radial] Pulse Rate [Orthostatic Lying Right Radial] Pulse Rate [Orthostatic Sitting Right Radial] Pulse Rate [Orthostatic Standing Right Radial] Respiratory Rate Blood Pressure 118/49 L 112/58 L 100/46 L Blood Pressure [Orthostatic Lying Right Arm] Blood Pressure [Orthostatic Sitting Right Arm] Blood Pressure [Orthostatic Standing Right Arm] Blood Pressure [Right Arm] Blood Pressure Mean Blood Pressure Mean [Right Arm] Blood Pressure Source 02 Sat by Pulse Oximetry 99 98 97 Oxygen Delivery Method Room Air Room Air Room Air 06/01/23 15:50 06/01/23 16:00 06/01/23 17:10 Temperature Temperature Source Pulse Rate 62 61 92 H Pulse Rate [Left Radial] Pulse Rate [Orthostatic Lying Right Radial] Pulse Rate [Orthostatic Sitting Right Radial] Pulse Rate [Orthostatic Standing Right Radial] Respiratory Rate 22 Blood Pressure 89/52 L 106/55 L 110/48 L Blood Pressure [Orthostatic Lying Right Arm] Blood Pressure [Orthostatic Sitting Right Arm] Blood Pressure [Orthostatic Standing Right Arm] Blood Pressure [Right Arm] Blood Pressure Mean 68 Blood Pressure Mean [Right Arm] Blood Pressure Source 02 Sat by Pulse Oximetry 97 98 98 Oxygen Delivery Method Room Air Room Air 06/01/23 17:32 06/01/23 17:40 06/01/23 18:00 Temperature Temperature Source Pulse Rate 72 61 60 Pulse Rate [Left Radial] Pulse Rate [Orthostatic Lying Right Radial] Pulse Rate [Orthostatic Sitting Right Radial] Pulse Rate [Orthostatic Standing Right Radial] Respiratory Rate 18 18 20 Blood Pressure 68/44 L 140/55 L 138/56 L Blood Pressure [Orthostatic Lying Right Arm] Blood Pressure [Orthostatic Sitting Right Arm] Blood Pressure [Orthostatic Standing Right Arm] Blood Pressure [Right Arm] Blood Pressure Mean 48 83 83 Blood Pressure Mean [Right Arm] Blood Pressure Source 02 Sat by Pulse Oximetry 85 L 97 98 Oxygen Delivery Method 06/01/23 18:20 06/01/23 18:33 06/01/23 19:12 Temperature 98.0 F Temperature Source Pulse Rate 63 64 Pulse Rate [Left Radial] Pulse Rate [Orthostatic Lying Right Radial] 70 Pulse Rate [Orthostatic Sitting Right Radial] 64 Pulse Rate [Orthostatic Standing Right Radial] 67 Respiratory Rate 18 18 Blood Pressure 138/57 L 144/67 H Blood Pressure [Orthostatic Lying Right Arm] 113/85 Blood Pressure [Orthostatic Sitting Right Arm] 103/72 L Blood Pressure [Orthostatic Standing Right Arm] 108/65 L Blood Pressure [Right Arm] Blood Pressure Mean 88 Blood Pressure Mean [Right Arm] Blood Pressure Source 02 Sat by Pulse Oximetry 99 Oxygen Delivery Method Room Air Lab Data Lab Results 06/01/23 13:48: WBC 10.5, RBC 4.11 L, Hgb 12.6, Hct 38.8, MCV 94.4, MCH 30.6, MCHC 32.4, RDW 17.5, Plt Count 437 H, MPV 7.7, Neut % (Auto) 68.6, Lymph % (Auto) 24.1, Pitkin % (Auto) 5.9, Eos % (Auto) 0.9, Baso % (Auto) 0.5, Neut # (Aut o) 7.2, Lymph # (Auto) 2.5, Pitkin # (Auto) 0.6, Eos # (Auto) 0.1, Baso # (Auto) 0.1, Sodium 133 L, Potassium 4.1, Chloride 102, Carbon Dioxide 21 L, Anion Gap 14.1, BUN 21 H, Creatinine 1.30 H, Estimated Creat Clear 36, Estimated GFR 40 L, Est GFR ( Amer) 49 L, Glucose 138 H, Calcium 10.0, Total Bilirubin 0.7, AST 47 H, ALT 24, Alkaline Phosphatase 81, Troponin I 0.02, NT-Pro-B Natriuret Pep 411 H, Total Protein 7.9, Albumin 4.2, Globulin 3.7 H, Albumin/Globulin Ratio 1.1 06/01/23 17:11: Troponin I 0.02, SARS-CoV-2 (PCR) Not detected, Influenza A Untype (PCR) Not detected, Influenza Type B (PCR) Not detected Orders (Tests/Meds): ED MEDICATIONS Discontinued Medications Generic Name Dose Route Start Last Admin Trade Name Freq PRN Reason Stop Dose Admin Lactated Ringer's 1,000 mls @ 999 mls/hr 06/01/23 13:40 06/01/23 15:24 Lactated Ringer's 1000 Ml Bag IV 06/01/23 14:40 999 mls/hr .Q1H1M ONE Administration Lactated Ringer's 1,000 mls @ 999 mls/hr 06/01/23 17:10 06/01/23 17:46 Lactated Ringer's 1000 Ml Bag IV 06/01/23 18:10 999 mls/hr .Q1H1M ONE Administration Ondansetron HCl 4 mg 06/01/23 17:10 06/01/23 17:46 Ondansetron 4mg/2ml Vial IV 06/01/23 17:11 4 mg ONCE ONE Administration Ondansetron HCl 4 mg 06/01/23 19:06 06/01/23 19:12 Ondansetron 4mg/2ml Vial IV 06/01/23 19:07 4 mg ONCE ONE Administration ORDERS Category Date Time Status Brain Natriuretic Peptide Stat Lab 06/01/23 13:48 Completed CBC w/Auto Diff [Complete Blood Count Auto Diff] Stat Lab 06/01/23 13:48 Completed CMP [Comprehensive Metabolic Panel] Stat Lab 06/01/23 13:48 Completed Rapid PCR Covid and Flu A/B Stat Lab 06/01/23 17:11 Completed Trop I [Troponin I] Stat Lab 06/01/23 13:48 Completed Troponin I Q3H Lab 06/01/23 17:11 Completed Troponin I Q3H Lab 06/01/23 20:30 Ordered Medical Decision Narrative: 68-year-old female history of hypertension, hyperlipidemia, hypothyroidism, CAD heart block pacemaker in place presenting with syncope. Patient states that she was in [employer] when she felt hot, lightheaded, tried to get to her car, but made onto the parking lot. A friend with her was able to help her down to the ground, she did not hit her head, but she did lose consciousness. Patient's friend brought her to the ED. Patient continuously lightheaded and confused on arrival, but shortly thereafter perked up and was much more herself. Denies chest pain, shortness of breath, nausea or vomiting, or any other concerns. Did not feel her pacemaker fire. History was obtained via conversation with patient. On arrival, patient hemodynamically stable, alert, oriented x4, appropriate, GCS 15, moving all extremities spontaneously, pupils equal and reactive to light. Full physical exam performed and significant for well-appearing woman in no acute distress, neurologically intact. Tired appearing, pale on my initial evaluation, reevaluation with patient looking and feeling much better. Cardiopulmonary exam within normal limits, no lower extremity edema. Differential includes orthostatic, vasovagal, medication induced, ACS, TX, arrhythmia, metabolic, endocrinologic, among others. Patient was given fluid bolus for symptomatic management and correction of unde rlying abnormalities. Workup independently interpreted and significant for nonactionable CBC. Patient does have elevated creatinine at 1.3 up from normal baseline. See radiology read for full review of final results. Independent interpretation of EKG shows ventricularly paced rhythm 65 beats a minute which is Sgarbossa negative and no ST or T wave changes concerning for acute ischemia. Right axis deviation. On reevaluation, patient feeling much better after fluids. Prior to cardiac labs and disposition, care handed off to oncoming physician. Melchor, DO: On my assessment of the patient, she is resting comfortably with reassuring vital signs on cardiac telemetry. Troponins are negative x 2, and labs are otherwise reassuring. She did develop nausea, vomiting, and diarrhea while in the emergency department. She has no significant abdominal pain. Symptoms were controlled with IV Zofran. She was not orthostatic on orthostatic vital signs, and she did not become symptomatic. She is able to tolerate oral intake. I feel she likely has gastroenteritis. At this time, I feel that she is appropriate for discharge. She was given a prescription for Zofran, instructions for symptomatic management, and strict return precautions. Critical Care <Yinka Villalba MD - Last Filed: 06/01/23 15:53> Critical Care Time Critical Care Time: No
[2023-06-01 16:11] LABS: NT Pro Brain Natriuretic Pep. 411 pg/mL (0-125)
[2023-06-01 16:14] LABS: Troponin I 0.02 ng/ml (0.00-0.034)
[2023-06-01 17:30] LABS: Coronavirus 19, PCR Not Detected (NotDetected); Influenza A, PCR Not Detected (NotDetected); Influenza B, PCR Not Detected (NotDetected)
--- NOTE | 2023-06-01 17:30 | PC.NURSE ---
pt up to bathroom vomiting large amount
[2023-06-01] MEDS: ONDANSETRON 4MG/2ML VIAL 4 MG IV ×2 (17:46→19:12)
[2023-06-01 18:07] LABS: Troponin I 0.02 ng/ml (0.00-0.034)
== END 2023-06-01 19:21 | disposition home or self-care (01) ==
PROVIDERS: Emergency Medicine; Emergency Provider Emergency Medicine; PCP Nurse Practitioner
DX: R55 Syncope and collapse (principal); E86.0 Dehydration; R11.2 Nausea with vomiting, unspecified; R19.7 Diarrhea, unspecified; R53.83 Other fatigue; R53.1 Weakness; I10 Essential (primary) hypertension; E78.5 Hyperlipidemia, unspecified; E03.9 Hypothyroidism, unspecified; I25.10 Atherosclerotic heart disease of native coronary artery without angina pectoris; Z95.0 Presence of cardiac pacemaker
CPT/HCPCS: 80053; 83880; 84484; 85025; 87636; 93005; 96361; 96374; 96376; 99285; J2405

== ENCOUNTER 2024-06-17 12:48 | Outpatient (CLI) | payer BC, SELFPAY ==
--- NOTE | 2024-06-17 12:53 | CA_ITS ---
FINAL REPORT CLINICAL HISTORY: SYNCOPE,DIZZINESS COMPARISON: None FINDINGS: RIGHT CAROTID: CCA PSV -78 cm/sec ICA PSV -78 cm/sec ICA/CCA PSV ratio -1.0. Comments: Mild plaque disease is noted. LEFTCAROTID: CCA PSV -80. cm/sec ICA PSV -86. cm/sec ICA/CCA PSV ratio -1.3. Comments: Mild plaque disease is noted. Antegrade flow is seen within the vertebral arteries. IMPRESSION: Carotid stenosis classified less than 50% Reviewed, Interpreted and Dictated by Bong Nagy MD Transcribed by Consuelo Rahman Authenticated and [facility]
== END 2024-06-17 23:59 | disposition home or self-care (01) ==
PROVIDERS: PCP Nurse Practitioner; Visit Provider Nurse Practitioner
DX: R55 Syncope and collapse (principal)
CPT/HCPCS: 93880

== ENCOUNTER 2024-10-25 16:02 | Outpatient (CLI) | payer BC, SELFPAY ==
--- OUTSIDE RECORDS SUMMARY | 2024-08-28 08:00 | XMS_ITS | Encounter Summary ---
Author Organization Healthcare Address [address] [id number] Care Team Providers Care Sample Hand Name Role Phone Flor Jackson APRN Primary Care Provider [phone] Reason for Referral * Consultation (Routine) - Closed Specialty Diagnoses / Procedures Referred By Alex merida Referred To Contact Diagnoses Histoplasmosis capsulati, unspecified Ramona Maldonado MD [address] [place] [phone] Phone: tel: fax: Referral ID Status Reason Start Date Expiration Date Visits Re quested Visits Authorized [id number] Closed 08/28/2024 02/27/2026 1 1 * Consultation (Routine) - Authorized Specialty Diagnoses / Procedures Referred By Alex merida Referred To Contact Pulmonology Diagnoses 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) Ramona Maldonado MD [address] [place] [phone] Phone: tel: fax: [facility] [address] [place] [address] Phone: tel: fax: Referral ID Status Reason Start Date Expiration Date V isits Requested Visits Authorized [id number] Authorized 08/28/2024 02/27/2026 1 1 Reason for Visit * Consultation (Routine) - Closed Specialty Diagnoses / Procedures Referred By Alex t Referred To Contact Infectious Diseases Diagnoses Histoplasmosis capsulati, unspecified [facility] [address] [place] [address] Phone: tel: fax: Referral ID Status Reason Start Date Expiration Date V isits Requested Visits Authorized [id number] Closed Specialty Services Required 07/04/2024 01/03/2026 1 1 Encounter Details Date Type Department Care Team (Late st Contact Info) Description 08/28/2024 8:00 AM EDT Office Visit [facility] [address] [place] [phone] [place] [address] [place] [address] [address] [place] [address] Lung granuloma (CMS/HCC) (Primary Dx); Histoplasmosis capsulati, unspecified Social History Tobacco Use Types Packs/Day Years Used Date Smoking Tobacco: Never Passive Smoke Exposure: Never Smokeless Tobacco: Never Alcohol Use Standard Drinks/Week Comments Never 0 (1 standard drink = 0.6 oz pur e alcohol) PHQ-2 Answer Date Recorded Patient Health Questionnaire-2 Score 0 08/28/2024 PHQ-9 Answer Date Recorded Patient Health Questionnaire-9 Score 0 08/28/2024 Comments No Sex and Gender Information Value Date Recorded Sex Assigned at Not on file Legal Sex Female 6:47 PM EDT Gender Identity Not on file Sexual Orientation Not on file documented as of this encounter Last Filed Vital Signs Vital Sign Reading Time Taken Comments Blood Pressure 133/79 08/28/2024 7:59 AM EDT Pulse 85 08/28/2024 7:59 AM EDT Temperature 36.8 C (98.3 F) 08/28/2024 7:59 AM EDT Respiratory Rate 16 08/28/2024 7:59 AM EDT Oxygen Saturation 96% 08/28/2024 7:5 9 AM EDT RA Inhaled Oxygen Concentration - - Weight 58.4 kg (128 lb 12 oz) 7:59 AM EDT Height 160 cm (5' 3 ) 08/28/2024 7:59 AM EDT pt reported Body Mass Index 22.81 08/28/2024 7:59 AM EDT documented in this encounter Functional Status * Over the past 2 weeks, how often have you been bothered by any of the following problems? Question Answer Date of Assessment Author Little interest or pleasure in doing things Not at all 08/28/2024 7:58 AM Sandro Rodriguez Feeling down, depressed, or hopeless Not at all 08/07 7:58 AM Sandro Rodriguez Patient Health Questionnaire-2 Score 0 08/07 7:58 AM Sandro Rodriguez * Question Answer Date of Assessment Author Trouble falling or staying a sleep, or sleeping too much Not at all 08/28/2024 7:58 AM Sandro Rodriguez Feeling tired or having little energy Not at all 7:58 AM Sandro Rodriguez Poor appetite or overeating Not at all 08/28/2024 7: 58 AM Sandro Rodriguez Feeling bad about yourself - or that you are a failure or have let yourself or your family down Not at all 08/28/2024 7:58 AM Sandro Rodriguez Trouble concentrating on thi ngs, such as reading the newspaper or watching television Not at all 08/28/2024 7:58 AM Sandro Rodriguez Moving or speaking so slowly that other people could have noticed? Or the opposite - being so fidgety or restless that you have been moving around a lot more than usual. Not at all 08/28/2024 7:58 AM Sandro Rodriguez Thoughts that you would be b feng off or hurting yourself in some way Not at all 08/28/2024 7:58 AM Sandro Rodriguez Patient Health Questionnaire-9 Score 0 08/07 7:58 AM Sandro Rodriguez * If you checked off any problems on this questionnaire so far, Question Answer Date of Assessment Author How difficult have these problems made it for you to do your work, take care of things at home, or get along with other people? Not difficult at all 08/28/2024 7:58 AM EDT Sandro Tran documented as of this encounter Miscellaneous Notes * Progress Notes - Ramona Maldonado MD - 08/28/2024 8:00 AM EDT Infectious Disease Consult We were asked to evaluate Ms. Jacki Heart, a 69 y.o. yo female by Sade Srinivasan.for possible recurrence of Histoplasma . Our findings and recommendations will be communicated through the shared medical record. HPI HPI: 69 y.o. 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 At time of diagnosis in 2016, patient was on chronic remicade and 60mg prednisone with concern of interstitial pneumonitis. During her last visit (01/2022), she was off itraconazole for 4 months without symptoms. At that time, we had 2 options, either to resume itraconazole or to discontinue itraconazole and monitor off antifungals. After extensive discussion with patient, she elected to resume itraconazole. Plan was to continue it until 3 months after negative histoplasma antigen level. Histoplasma antigen from 09/24/21 was negative. She completed more than 3 months of itraconazole after negative histoplasma antigen. Reconsulted today to reevaluate patient for possible reoccurrence of pulmonary histoplasmosis. Had a syncopal episode at work on 06/10/24. Seen at [facility] and reportedly potential more pressure on lungs than previously (pulmonary hypertension?). CT scan in ED was notable for some granulomas. Patient has pacer, but was functioning normally . Was noted to be iron deficient per patient and family report (no available records). Primary care concerned for possible recurrence of histoplasmosisper their report to me given noted granulomas on imaging. No fevers. No chills, but poor appetite and some weight loss. + cough since COVID in 2020. Patient now on chronic low dose prednisone and methotrexate for RA. She notes stiffness in wrist and hands when off these for prolonged periods of time. She does have a subacute morning cough most mornings with clear to white phlegm. May have a post tussive emesis with this cough. No current floor care specialist. Current Medications[1] Medical History[2] Surgical History[3] Social History Socioeconomic History Marital status: Spouse name: Not on file Number of children: Not on file Years of education: Not on file Highest education level: Not on file Occupational History Not on file Tobacco Use Smoking status: Never Passive exposure: Never Smokeless tobacco: Never Vaping Use Vaping status: Never Used Substance and Sexual Activity Alcohol use: Never Drug use: Never Sexual activity: Not on file Other Topics Concern Not on file Social History Narrative Not on file Social Drivers of Health Financial Resource Strain: Not on file Food Insecurity: Not on file Transportation Needs: Not on file Physical Activity: Not on file Stress: Not on file Social Connections: Not on file Intimate Partner Violence: Not on file Housing Stability: Not on file Family History[4] Immunization History Administered Date(s) Administered Influenza, High-dose, Split Virus, Trivalent, Injectable, preservative free 02/25/2018, 02/10/2024 Influenza, Unspecified 01/24/2020 Influenza, high-dose, quadrivalent 02/25/2018, 02/07/2020, 02/04/2022, 02/10/2023 Influenza, injectable, quadrivalent, preservative free 02/03/2017, 01/13/2021 Moderna COVID-19 Vaccine (Bread Wrapper Operator) 12+ years 07/22/2020, 08/19/2020, 05/15/2021 Moderna Covid-19 Vaccine 12y+, Price Protein, Preservative free 07/30/2020, 08/17/2020 Zoster, Recombinant 02/07/2020, 12/14/2020 Allergies[5] REVIEW OF SYSTEMS: Review of Systems Constitutional: Positive for appetite change, fatigue and unexpected weight change. Negative for activity change, chills and fever. HENT: Negative for congestion, dental problem, postnasal drip, rhinorrhea and sore throat. Eyes: Negative for pain and visual disturbance. Respiratory: Positive for cough. Negative for shortness of breath. Cardiovascular: Negative for chest pain and leg swelling. Gastrointestinal: Negative for abdominal pain, diarrhea, nausea and vomiting. Genitourinary: Negative for dysuria, frequency and urgency. Musculoskeletal: Negative for arthralgias and gait problem. Skin: Negative for color change and rash. Neurological: Negative for weakness, numbness and headaches. Psychiatric/Behavioral: Negative for dysphoric mood and suicidal ideas. The patient is not nervous/anxious. Physical Exam Vitals and nursing note reviewed. Constitutional: Appearance: Normal appearance. HENT: Head: Normocephalic and atraumatic. Right Ear: Tympanic membrane, ear canal and external ear normal. Left Ear: Tympanic membrane, ear canal and external ear normal. Nose: Nose normal. Mouth/Throat: Mouth: Mucous membranes are moist. Pharynx: Oropharynx is clear. No posterior oropharyngeal erythema. Eyes: General: No scleral icterus. Extraocular Movements: Extraocular movements intact. Conjunctiva/sclera: Conjunctivae normal. Pupils: Pupils are equal, round, and reactive to light. Cardiovascular: Rate and Rhythm: Normal rate and regular rhythm. Pulses: Normal pulses. Heart sounds: Normal heart sounds. No murmur heard. No friction rub. No gallop. Pulmonary: Effort: Pulmonary effort is normal. No respiratory distress. Breath sounds: Normal breath sounds. No wheezing or rhonchi. Abdominal: General: Bowel sounds are normal. There is no distension. Palpations: Abdomen is soft. There is no mass. Tenderness: There is no abdominal tenderness. Musculoskeletal: General: Normal range of motion. Cervical back: Normal range of motion and neck supple. No rigidity. Skin: General: Skin is warm. Capillary Refill: Capillary refill takes less than 2 seconds. Coloration: Skin is not jaundiced. Findings: No erythema or rash. Neurological: General: No focal deficit present. Mental Status: She is alert and oriented to person, place, and time. Mental status is at baseline. Psychiatric: Mood and Affect: Mood normal. Behavior: Behavior normal. Thought Content: Thought content normal. Judgment: Judgment normal. LABS: Reviewed available labs. No new histo testing. Previously negative histo antigen as of 01/2022. Imaging: CT 06/10/24 CT chest---read/images not available. ASSESSMENT: Problem List Items Addressed This Visit None Visit Diagnoses Lung granuloma (CMS/HCC) - Primary Relevant Orders Quantiferon TB Gold Comprehensive metabolic panel Histoplasma Galactomannan EIA, Urine (SO) Histoplasma Galactomannan EIA, Serum (SO) Fungal Serology (Com Fix and ID) Isolator Blood Culture Ambulatory referral to Pulmonary Medicine ASPERGILLUS GALACTOMANNAN EIA (SO) Histoplasmosis capsulati, unspecified Relevant Orders Follow Up ID 69 y.o. 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 Returns to clinic after recent syncopal episode with incidental finding of lung granulomas on chest CT. Unfortunately imaging report and images not currently available to me for review. Unclear if granulomas noted on imaging represent recurrence of histoplasmosis or old quiescent granulomas from prior infection based on available data. I am more suspicious for iron deficiency as cause of her recent syncopal event. The differential for her morning chronic cough is broad and while it may include histoplasmosis, it is not pathognomonic for this. RECOMMENDATIONS: -will hold on initiation of any medication at this time -will check the following labs: CMP, urine/serum histo antigens, fungal serologies, fungal blood culture, galactomannin, TB quantiferon gold. -I will request records from her 06/2024 evaluation at [facility] -we discussed involving a floor care specialist in her care; I have taken the liberty of placing a consultation. We may need a bronchscopy for diagnostics -we discussed that should she have recurrence of disseminated histo that she may require reduction in her immunosuppression to facilitate clearance. -all questions from patient and son answered. F/U 2 weeks Ramona Maldonado MD [1] Current Outpatient Medications: Fmofcku-Plxgvojza-Fjje 333-133-5 MG tablet, Take by mouth., Disp: , Rfl: ferrous sulfate 325 (65 Fe) MG tablet, TAKE 1 TABLET BY MOUTH 3 TIMES A WEEK FOR 30 DAYS, Disp: , Rfl: folic acid (Folvite) 1 MG tablet, Take 1 tablet by mouth 1 (one) time each day., Disp: , Rfl: itraconazole (Sporanox) 100 MG capsule, Take 2 capsules (200 mg total) by mouth 2 (two) times a day. Take 2 capsules by mouth 3 times a day for 3 days, then 2 capsules by mouth 2 times a day., Disp: 120 capsule, Rfl: 5 levothyroxine (Synthroid, Levoxyl) 125 MCG tablet, take 1 tablet by mouth every morning on empty stomach, Disp: , Rfl: lisinopril 5 MG tablet, Take 5 mg by mouth 1 (one) time each day., Disp: , Rfl: methotrexate 2.5 MG tablet, Take 6 tablets (15 mg total) by mouth every 7 (seven) days., Disp: , Rfl: metoprolol succinate XL (Toprol-XL) 50 MG 24 hr tablet, Take 50 mg by mouth 1 (one) time each day.,Disp: , Rfl: naproxen sodium (Aleve) 220 MG tablet, Take 1 tablet by mouth., Disp: , Rfl: predniSONE (Deltasone) 5 MG tablet, Take 5 mg by mouth 1 (one) time each day., Disp: , Rfl: sulfaSALAzine (Azulfidine) 500 MG tablet, TAKE 1 TABLET BY MOUTH TWICE A DAY AFTER MEALS, Disp: , Rfl: Synthroid 88 MCG tablet, , Disp: , Rfl: [2] Past Medical History: Diagnosis Date Histoplasmosis, unspecified Disseminated histoplasmosis Rheumatoid arthritis (CMS/HCC) Syncope and collapse Syncope and collapse Ventricular tachycardia (CMS/HCC) Ventricular tachycardia (paroxysmal) [3] Past Surgical History: Procedure Laterality Date CARDIAC PACEMAKER PLACEMENT N/A pacemaker insertion from [facility] CATARACT EXTRACTION TONGUE/FLOOR OF MOUTH SURGERY N/A Surgery Of Tongue / Floor Of Mouth from [facility] [4] Family History Problem Relation Name Age of Onset Lung cancer Mother [5] No Known Allergies documented in this encounter Plan of Treatment Upcoming Encounters Date Type Department Care Team (Late st Contact Info) Description 01/16/2025 10:00 AM EDT Office Visit [facility] [address] [place] [phone] Cosme Vance, [address] [place] [phone] Scheduled Orders Name Type Priority Associated Diagnoses Orde r Schedule Histoplasma Galactomannan EIA, Urine (SO) Lab Routine Lung granuloma (CMS/HCC) Expected: 08/28/2024 (Approximate), Expires: 02/27/2026 Scheduled Referrals Name Type Priority Associated Diagnoses Order Schedule Ambulatory referral to Pulmonary Medicine Outpatient Referral Routine Lung granuloma (CMS/HCC) 1 Occurrences starting 08/28/2024 until 02/27/2026 Follow Up ID Outpatient Referral Routine Histoplasmosis capsulati, unspecified Expected: 09/12/2024, Expires: 09/27/2025 documented as of this encounter Results * ASPERGILLUS GALACTOMANNAN EIA (SO) (08/28/2024 8:53 AM EDT) Aspergillus galactomannan EIA serum 0.053 <0.500 08/29/2024 4:11 PM EDT [facility] ([facility]) Comment: Interpretation: Patients with an index value of greater than or equal to 0.5 are considered to be positive for galactomannan antigen. The Platelia(TM) Aspergillus EIA package insert also recommends a new sample be collected from the patient for follow-up testing. Patients with an index value of less than 0.5 are considered to be negative for galactomannan antigen. A negative result may indicate that the patient's result is below the detectable level of the assay. Negative results do not rule out the diagnosis of Invasive Aspergillosis. Pursuant to the package insert, repeat testing is recommended if the result is negative, but the disease is suspected. Due to the potential for environmental contamination when transferred to pour-off tubes, which can lead to false positive results, interpret positive results from samples provided in pour-off tubes with caution. Results should be used in conjunction with clinical findings, and should not form the sole basis for a diagnosis or treatment decision. The Platelia Aspergillus Galactomannan EIA is a product of [employer] and is FDA approved for in vitro diagnostic use. Testing Performed at: [facility] [address] [place] [address], [address] [place] [address] Pilot Can Router: Quinn Castro, PhD KERRIE (ABB) CLIA # [id number] FLAG Interpretation: A = Abnormal, H = High, L = Low Blood Venous blood specimen / Unknown Venipuncture / Unknown 08/28/2024 8:53 AM EDT 08/28/2024 9:00 AM EDT Narrative [facility] ([facility]) - 08/29/2024 4:11 PM EDT Release to patient in MyChart->Immediate us Ramona Maldonado MD LAB BLOOD ORDERABLES Final Res ult [facility]) * Histoplasma Galactomannan EIA, Serum (SO) (08/28/2024 8:53 AM EDT) Histoplasma Galactomannan EIA, Serum <0.3 <0.3 ng/mL 08/29/2024 6:16 PM EDT [facility]) Comment: This test is used for the detection of Histoplasma Galactomannan in serum samples. Values greater than or equal to 0.3 ng/mL and less than 0.6 ng/mL are considered to be positive but below the limit of quantitation for Histoplasma Galactomannan. Values between 0.6 ng/mL and 25.0 ng/mL are considered positive. Values greater than 25 ng/mL are considered positive and above the limit of quantitation. However, all test results should be reviewed in light of other clinical data by the physician. Specimens should be repeated if the results are positive and inconsistent with clinical findings. Patients with a value less than 0.3 ng/mL are considered to be negative for Histoplasma Galactomannan. A negative result does not rule out the diagnosis of disease as the specimen may be drawn before detectable Galactomannan antigen is present. The clarus Histoplasma Galactomannan EIA was found to be cross-reactive with Paracoccidioides, Blastomyces, and some Scarlet specimens. Positive tests should be confirmed in areas or patient groups where these organisms are endemic or a risk. Even though it was not tested in the clarus Histoplasma Galactomannan EIA, Talaromyces marneffei is known to cross-react with Histoplasma. The clarus Histoplasma Galactomannan EIA is not intended for monitoring therapy. Testing should not be performed as a screening procedure for the general population. The predictive value of a positive or negative result depends on the pretest likelihood of histoplasmosis disease being present. Testing should only be done when clinical evidence suggests the diagnosis of histoplasmosis disease. The performance characteristics of this test were determined by [employer]. It has not been cleared or approved by the U.S. Food and Drug Administration. Testing Performed at: [facility] [address] [place] [address], [address] [place] [address] Pilot Can Router: Quinn Castro, PhD KERRIE ([facility]) IA # [id number] FLAG Interpretation: A = Abnormal, H = High, L = Low Blood Venous blood specimen / Unknown Venipuncture / Unknown 08/28/2024 8:53 AM EDT 08/28/2024 9:00 AM EDT Narrative [facility]) - 08/29/2024 6:16 PM EDT Release to patient in [facility]->Immediate us Ramona Maldonado MD LAB REF LAB BLOOD AND FLUID OR D Final Result [facility]) * (ABNORMAL) Comprehensive metabolic panel (08/28/2024 8:53 AM EDT) Glucose, Plasma 89 74 - 99 mg/dL 08/28/2024 12:19 PM EDT [facility] BUN, Plasma 18 8 - 23 mg/dL 08/28/2024 12:19 PM EDT [facility] Creatinine, Plasma 0.71 0.60 - 1.10 mg/dL 08/28/2024 12:19 PM EDT [facility] BUN/Creatinine Ratio 25 08/28/2024 12:19 PM EDT [facility] Sodium, Plasma 134(L) 136 - 145 mmol/L 08/28/2024 12:19 PM EDT [facility] Potassium, Plasma 4.4 3.6 - 4.9 mmol/L 08/28/2024 12:19 PM EDT [facility] Chloride, Plasma 99 97 - 107 mmol/L 08/28/2024 12:19 PM EDT [facility] CO2, Plasma 23 22 - 29 mmol/L 08/28/2024 12:19 PM EDT [facility] Anion Gap 12 6 - 16 mmol/L 08/28/2024 12:19 PM EDT [facility] Total Calcium, Plasma 10.2 8.9 - 10.2 mg/dL 08/28/2024 12:19 PM EDT [facility] Total Protein 8.1(H) 6.3 - 7.9 g/dL 08/28/2024 12:19 PM EDT [facility] Albumin, Plasma 4.3 3.5 - 5.2 g/dL 08/28/2024 12:19 PM EDT [facility] AST, Plasma 34 10 - 35 U/L 08/28/2024 12:19 PM EDT [facility] ALT, Plasma 13 10 - 35 U/L 08/28/2024 12:19 PM EDT [facility] Alkaline Phosphatase, Plasma 70 46 - 142 U/L 08/28/2024 12:19 PM EDT [facility] Total Bilirubin, Plasma 0.3 0.2 - 1.1 mg/dL 08/28/2024 12:19 PM EDT [facility] eGFRcr 91.0 mL/min/1.7 3m*2 08/28/2024 12:19 PM EDT [facility] Comment:Reported eGFRcr in m L/min/1.73m2 is based the CKD-EPI 2020 equation that does not use a race coefficient. Blood Venous blood specimen / Unknown Venipuncture / Unknown 08/28/2024 8:53 AM EDT 08/28/2024 9:00 AM EDT us Ramona Maldonado MD LAB BLOOD ORDERABLES Final Res ult [facility] [address] [place] [address] * Quantiferon TB Gold (08/28/2024 8:53 AM EDT) Quantiferon TB Gold Plus Result Negative Negative 08/29/2024 4:49 PM EDT [facility] TB Nill Value 0.0586 IU/mL 08/29/2024 4:49 PM EDT [facility] TB Antigen 1 0.0054 IU/mL 08/29/2024 4:49 PM EDT [facility] TB Antigen 2 0.0097 IU/mL 08/29/2024 4:49 PM EDT [facility] TB Mitogen 2.3014 IU/mL 08/29/2024 4:49 PM EDT [facility] Blood Venous blood specimen / Unknown Venipuncture / Unknown 08/28/2024 8:53 AM EDT 08/28/2024 9:00 AM EDT Narrative [facility] - 08/29/2024 4:49 PM EDT Responses to the Mitogen positive control and occasionally to TB antigen can be above the assay range. For calculation purposes: IFN-gamma values > 10 IU/mL are handled as 10 IU/mL. us Ramona Maldonado MD LAB BLOOD ORDERABLES Final Res ult [facility] [address] [place] [address] documented in this encounter Visit Diagnoses Diagnosis Lung granuloma (CMS/HCC)- Primary Histoplasmosis capsulati, unspecified documented in this encounter Additional Health Concerns Assessment Noted Time PHQ-9 Depression Total Score: 0 08/29/19 7:58 AM EDT A fall risk assessment has been complete d for the patient 08/28/2024 7:59 AM EDT A Body Mass Index follow-up plan has been documented for the patient 08/28/2024 9:02 AM EDT documented as of this encounter Care Teams Sample Hand Relationship Specialty Start Date End Date Flor Jackson APRN [address] [place] [id number] PCP - General 09/18/20 documented as of this encounter
--- OUTSIDE RECORDS SUMMARY | 2024-09-04 07:25 | XMS_ITS | Continuity of Care Document ---
Author Organization [facility] Phone Care Team Providers Care Stringer Up Soldering Machine Name Role Phone GIOVANNA KAHN Admitting Unavailable NO, DEFINED P Primary Care Unavailable GIOVANNA KAHN Primary Attending Unavailable ALLERGIES AND ADVERSE REACTIONS ALLERGIES AND ADVERSE REACTIONS Code System Allergy Substance Adverse Reaction Date Reaction (Severity) Comment Status Reported By Updated By No Known Allergies [id number] on September 02, 2024 1:13:37 PM UTC RESULTS Patient: NANDO Coppola Date of : [birth year] 95 7 LABORATORY RESULTS ORDER 100: CBC AUTO W DIFF ( LOINC: 85978-8) ORDER DATE: September 02, 2024 12:57:00 PM UTC Specimen Source: EDTA Specimen Type: Blood specime n with EDTA PERFORMING LAB: [address] [id number] Result Comment: Final Result Date: September 02, 2024 1:51:00 PM UTC (TECH: AAC) LOINC TEST FLAG RESULT REFERENCE RANGE UPDA EVIE BY 6690-2 Leukocytes [#/volume] in Blood by Automated count H 10.8 K/ul 4.0 K/ul - 10.5 K/ul September 02, 2024 1:51:00 PM UTC (TECH: AAC) 789-8 Erythrocytes [#/volume] in Blood by Automated count L 3.6 M/mm3 4.2 M/mm3 - 6.4 M/mm3 September 02, 2024 1:51:00 PM UTC (TECH: AAC) 718-7 Hemoglobin [Mass/volume] in Blood L 10.5 gm/dl 12.5 gm/dl - 16.0 gm/dl September 02, 2024 1:51:00 PM UTC (TECH: AAC) 00489-7 Hematocrit [Volume Fraction] of Blood L 33.0 % 37.0 % - 47.0 % September 02 1:51:00 PM UTC (TECH: AAC) 787-2 Erythrocyte mean corpuscular volume [Entitic volume] by Automated count N 92.7 fl 78 fl - 100 fl September 02, 2024 1:51:00 PM UTC (TECH: AAC) 785-6 Erythrocyte mean corpuscular hemoglobin [Entitic mass] by Automated count N 29.5 pg 27 pg - 31 pg September 02, 2024 1:51:00 PM UTC (TECH: AAC) 786-4 Erythrocyte mean corpuscular hemoglobin concentration [Mass/volume] by Automated count L 31.8 g/dl 32 g/dl - 36 g/dl September 02, 2024 1:51:00 PM UTC (TECH: AAC) 35799-5 Erythrocyte distribution width [Ratio] H 16.3 % 11.5 % - 14.0 % September 02, 2024 1:51:00 PM UTC (TECH: AAC) 777-3 Platelets [#/volume] in Blood by Automated count N 338 K/ul 150 K/ul - 450 K/ul September 02, 2024 1:51:00 PM UTC (TECH: AAC) 31251-5 Platelet mean volume [Entitic volume] in Blood by Automated count N 8.9 fl 6 fl - 9.5 fl September 02, 2024 1:51:00 PM UTC (TECH: AAC) 70820-9 Neutrophils/100 leukocytes in Blood H 82.2 % 43 % - 65 % September 02 1:51:00 PM UTC (TECH: AAC) 736-9 Lymphocytes/100 leukocytes in Blood by Automated count L 5.5 % 20.5 % - 45.5 % September 02 1:51:00 PM UTC (TECH: AAC) 5905-5 Monocytes/100 leukocytes in Blood by Automated count N 10.6 % 5.5 % - 11.7 % September 02 1:51:00 PM UTC (TECH: AAC) 713-8 Eosinophils/100 leukocytes in Blood by Automated count L 0.7 % 0.9 % - 2.9 % September 02 1:51:00 PM UTC (TECH: AAC) 706-2 Basophils/100 leukocytes in Blood by Automated count N 0.5 % 0.2 % - 1.0 % September 02 1:51:00 PM UTC (TECH: AAC) 24798-8 Immature granulocytes/100 leukocytes in Blood by Automated count N 0.5 % 0.0 % - 0.8 % September 02 1:51:00 PM UTC (TECH: AAC) 02901-4 Nucleated cells [#/volume] in Blood N 0.0 % September 02 1:51:00 PM UTC (TECH: AAC) 47805-9 Neutrophils [#/volume] in Blood H 8.9 K/uL 2.2 K/uL - 4.8 K/uL September 02, 2024 1:51:00 PM UTC (TECH: AAC) 731-0 Lymphocytes [#/volume] in Blood by Automated count L 0.6 CELL/MCL 1.3 CELL/MCL - 2.9 CELL/MCL September 02, 2024 1:51:00 PM UTC (TECH: AAC) 742-7 Monocytes [#/volume] in Blood by Automated count H 1.2 CELL/MCL 0.3 CELL/MCL - 0.8 CELL/MCL September 02, 2024 1:51:00 PM UTC (TECH: AAC) 711-2 Eosinophils [#/volume] in Blood by Automated count N 0.1 CELL/MCL 0 CELL/MCL - 0.2 CELL/MCL September 02, 2024 1:51:00 PM UTC (TECH: AAC) 704-7 Basophils [#/volume] in Blood by Automated count N 0.1 CELL/MCL 0.0 CELL/MCL - 1.0 CELL/MCL September 02, 2024 1:51:00 PM UTC (TECH: AAC) 86793-3 Immature granulocytes [#/volume] in Blood N 0.05 K/ul September 02 1:51:00 PM UTC (TECH: AAC) 51905-8 Nucleated cells [#/volume] in Blood N 0.00 K/uL September 02 1:51:00 PM UTC (TECH: AAC) 89102-4 Manual Differential panel - Blood N NO September 02, 2024 1:51:00 PM UTC (TECH: AAC) ORDER 200: COMP METABOLIC PA ROMI (LOINC: 81973-3) ORDER DATE: September 02, 2024 12:57:00 PM UTC Specimen Source: PLASMA Specimen Type: Plasma specim en PERFORMING LAB: [place] [id number] [facility] [id number] Result Comment: Final Result Date: September 02, 2024 2:11:00 PM UTC (TECH: DTR) LOINC TEST FLAG RESULT REFERENCE RANGE UPDA EVIE BY 2951-2 Sodium [Moles/volume ] in Serum or Plasma L 133 mmol/L 136 mmol/L - 145 mmol/L September 02, 2024 2:04:00 PM UTC (TECH: DTR) 2823-3 Potassium [Moles/volume] in Serum or Plasma N 3.9 mmol/L 3.6 mmol/L - 5.0 mmol/L September 02, 2024 2:04:00 PM UTC (TECH: DTR) 2075-0 Chloride [Moles/volu me] in Serum or Plasma N 99 mmol/L 98 mmol/L - 107 mmol/L September 02, 2024 2:04:00 PM UTC (TECH: DTR) 2027-9 Carbon dioxide, tota l [Moles/volume] in Serum or Plasma N 26.1 mmol/L 21.0 mmol/L - 32.0 mmol/L September 02, 2024 2:04:00 PM UTC (TECH: DTR) 94298-8 Anion gap in Blood N 11.8 A pril 2024 2:04:00 PM UTC (TECH: DTR) 2345-7 Glucose [Mass/volume ] in Serum or Plasma H 134 mg/dl 70 mg/dl - 120 mg/dl September 02, 2024 2:04:00 PM UTC (TECH: DTR) 6299-2 Urea nitrogen [Mass/volume] in Blood H 22 mg/dL 7 mg/dL - 18 mg/dL September 02, 2024 2:04:00 PM UTC (TECH: DTR) 88529-7 Creatinine [Moles/volume] in Blood N 1.3 mg/dL 0.6 mg/dL - 1.3 mg/dL September 02, 2024 2:04:00 PM UTC (TECH: DTR) 95552-0 Glomerular filtratio n rate/1.73 sq M.predicted by Creatinine-based formula (MDRD) L 44 mlpermin 60 mlpermin September 02, 2024 2:04:00 PM UT (TECH: DTR) 28169-6 Osmolality of Serum or Plasma by calculated by sum of electrolytes N 282 mosm/kg 275 mosm/kg - 301 mosm/kg September 02, 2024 2:04:00 PM UT (TECH: DTR) 2885-2 Protein [Mass/volume ] in Serum or Plasma N 7.3 g/dl 6.4 g/dl - 8.2 g/dl September 02, 2024 2:11:00 PM UTC (TECH: DTR) 1751-7 Albumin [Mass/volume ] in Serum or Plasma L 2.8 g/dl 3.4 g/dl - 5.0 g/dl September 02, 2024 2:11:00 PM UT (TECH: DTR) 2336-6 Globulin [Mass/volum e] in Serum N 4.5 September 02, 2024 2:11:00 PM UT (TECH: DTR) 1759-0 Albumin/Globulin [Ma ss Ratio] in Serum or Plasma L 0.6 0.7 - 2 September 02, 2024 2:11:00 PM UT (TECH: DTR) 70909-4 Calcium [Mass/volume ] in Serum or Plasma N 9.8 mg/dl 8.5 mg/dl - 10.5 mg/dl September 02, 2024 2:04:00 PM UT (TECH: DTR) 1975-2 Bilirubin.total [Mass/volume] in Serum or Plasma N 0.40 mg/dL 0.10 mg/dL - 1.00 mg/dL September 02, 2024 2:11:00 PM UT (TECH: DTR) 1920-8 Aspartate aminotransferase [Enzymatic activity/volume] in Serum or Plasma N 20 U/L 0 U/L - 37 U/L September 02, 2024 2:11:00 PM UT (TECH: DTR) 1742-6 Alanine aminotransferase [Enzymatic activity/volume] in Serum or Plasma N 20 U/L 0 U/L - 65 U/L September 02, 2024 2:11:00 PM UT (TECH: DTR) 6768-6 Alkaline phosphatase [Enzymatic activity/volume] in Serum or Plasma N 70 U/L 46 U/L - 116 U/L September 02, 2024 2:11:00 PM UT (TECH: DTR) ORDER 300: TROPONIN I QUANT HIGH SENS. (LOINC: 53685-2) ORDER DATE: September 02, 2024 12:57:00 PM UT Specimen Source: PLASMA Specimen Type: Plasma specim en PERFORMING LAB: [address] [id number] Result Comment: Final Result Date: September 02, 2024 2:11:00 PM UT (TECH: DTR) LOINC TEST [place] [address]-0 Troponin I.cardiac [Mass/volume] in Serum or Plasma N 18 ng/L 0 ng/L - 51 ng/L September 02, 2024 2:11:00 PM UT (TECH: DTR) LABORATORY NARRATIVE RESULTS Information is not available RADIOLOGY RESULTS Information is not available PATHOLOGY NARRATIVE RESULTS Information is not available MICROBIOLOGY RESULTS No Micro Labs/Results Exist for Patient BLOOD ADMIN RESULTS Information is not available MEDICATIONS HOME MEDICATIONS Status RXNORM NDC Medication Dose Route Frequency Dates Comments Reported By Updated By Drug Treatment Unknown DISCHARGE MEDICATIONS Status RXNORM NDC Medication Dose Route Frequency Dates Comments Physician Updated By No Discharge Medication Info rmation Available INPATIENT MEDICATIONS Status RXNORM NDC Medication Dose Route Frequency Rat e Quantity Dates Comments Physician Updated By No Inpatient Medication Info rmation Available SOCIAL HISTORY SOCIAL HISTORY SNOMED-CT Social History Element Description Effective Dates Offered Cessation Comment UpdatedBy [id number] Current Tobacco smoking status Former Smoker [id number] on September 02, 2024 1:14:23 PM [facility] [id number] Historical Tobacco smoking status Never Smoked [id number] on June 10, 2024 12:24:01 PM [facility] SOCIAL HISTORY - Gender Sex: Female SOCIAL HISTORY - Status : status i nformation is not available Intention in Next Year: intention information is not available SOCIAL HISTORY - Sexual Behavior Sexual Orientation Gender Identity SNOMED-CT Description SNO MED -CT Description Activity Level No of Partners Partner Type UpdatedBy Information is not available VITAL SIGNS PATIENT VITAL SIGNS This section displays the mo st recent value for each vital sign as of September 04, 2024 11:25:23 AM [facility] Loinc Code Vital Sign Activity Date Result Updated By 8310-5 Body temperature September 02, 2024 12:45:00 PM UT 98.0 [degF] [id number] on September 02, 2024 1:12:20 PM UTC 8462-4 Diastolic blood pressure September 02, 2024 3:01:00 PM UTC 70.0 mm[Hg] [id number] on September 02, 2024 3:30:28 PM UTC 8867-4 Heart rate September 02, 2024 3:15:00 PM UTC 75 /min [id number] on September 02, 2024 3:29:42 PM UTC 94632-3 Oxygen saturation in Arterial blood by Pulse oximetry September 02, 2024 3:15:00 PM UTC 99.0 % [id number] on September 02, 2024 3:29:42 PM UTC 9279-1 Respiratory rate September 02, 2024 3:15:00 PM UTC 25 /min [id number] on September 02, 2024 3:29:42 PM UTC 8480-6 Systolic blood pressure August 3:01:00 PM UTC 114.0 mm[Hg] [id number] on September 02, 2024 3:30:28 PM UTC PEDIATRIC GROWTH CHART - VITAL SIGNS This section displays Head C ircumference Percentile, Weight for Length Percentile and BMI Percentile Loinc Code Pediatric Measure Age (Months) Result Updat ed By No Pediatric Growth Chart Pe rcentile Information Available. HEALTH CONCERNS Problems Concern Status Health Concern problem infor mation not available. Smoking Status Status Years Used Consumed packs p er day Health Concern smoking histo ry information not available. Family History Concern Status Health Concern family histor y information not available. ENCOUNTERS ENCOUNTER INFORMATION Reason for Visit LOW BP Admission September 02, 2024 12:45:00 PM UTC G [address] [id number] Discharge September 02, 2024 3:30:00 PM UTC DI SCHARGED TO HOME OR SELF CARE ENCOUNTER DIAGNOSES Notes information is not bruce ilable. Code System Diagnosis Onset Date Diagnosis information is not available. ABSTRACT DIAGNOSES Code System Diagnosis Updated By R55 ICD10 SYNCOPE AND COLLAPSE [id number] on September 04, 2024 11:24:44 AM UTC R11.0 ICD10 NAUSEA [id number] on 2024 11:24:44 AM UTC R42 ICD10 DIZZINESS AND GIDDINESS [id number] on September 04, 2024 11:24:44 AM UTC R55 ICD10 SYNCOPE AND COLLAPSE [id number] on September 04, 2024 11:24:44 AM [facility] Z87.891 ICD10 PERSONAL HISTORY OF NICOTINE DEPENDENCE [id number] on September 04, 2024 11:24:44 AM [facility] CARE TEAM Care Stringer Up Soldering Machine Role GIOVANNA KAHN Admitting DEFINED NO Primary Care GIOVANNA KAHN Primary Attending CARE TEAM CARE etiquette teacher Role on Team Status Start Date End Date Update d By CRISS Leavitt Attending normal September 02 2:08:53 PM UT September 02, 2024 3:30:00 PM [facility] [id number] on September 02, 2024 2:08:53 PM [facility] CRISS Leavitt Admitting normal September 02 2:08:53 PM [facility] September 02, 2024 3:30:00 PM [facility] [id number] on September 02, 2024 2:08:53 PM [facility] NO DEFINED PRIMARY C PCP normal September 02, 2024 12:45:19 PM UT September 02, 2024 3:30:00 PM [facility] [id number] on September 02, 2024 2:08:53 PM [facility]
--- OUTSIDE RECORDS SUMMARY | 2024-09-12 10:00 | XMS_ITS | Encounter Summary ---
Author Organization Healthcare Address [address] [place] [address] Care Team Providers Care Superintendent Electric Power Name Role Phone Flor Jackson APRN Primary Care Provider [phone] Reason for Referral * Consultation (Routine) - Authorized Specialty Diagnoses / Procedures Referred By Contac t Referred To Contact Pulmonology Diagnoses Lung granuloma (CMS/HCC) Ramona Maldonado MD [address] [place] [phone] Phone: tel: fax: [facility] [address] [place] [address] Phone: tel: fax: Referral ID Status Reason Start Date Expiration Date V isits Requested Visits Authorized [id number] Authorized 09/12/2024 03/14/2026 1 1 * Consultation (Routine) - Authorized Specialty Diagnoses / Procedures Referred By Contac t Referred To Contact Diagnoses Lung granuloma (CMS/HCC) Ramona Maldonado MD [address] [place] [phone] Phone: tel: fax: Referral ID Status Reason Start Date Expiration Date V isits Requested Visits Authorized [id number] Authorized 09/12/2024 03/14/2026 1 1 Reason for Visit * Consultation (Routine) - Closed Specialty Diagnoses / Procedures Referred By Alex t Referred To Contact Diagnoses Histoplasmosis capsulati, unspecified Ramona Maldonado MD [address] [facility] [address] [place] [address] Phone: tel: fax: Referral ID Status Reason Start Date Expiration Date Visits Re quested Visits Authorized [id number] Closed 08/28/2024 02/27/2026 1 1 Encounter Details Date Type Department Care Team (Late st Contact Info) Description 09/12/2024 10:00 AM EDT Office Visit [facility] [address] [place] [phone] Cosme Vance, DO [address] [phone] Lung granuloma (CMS/HCC) (Primary Dx); Histoplasmosis capsulati, unspecified Social History Tobacco Use Types Packs/Day Years Used Date Smoking Tobacco: Never Passive Smoke Exposure: Never Smokeless Tobacco: Never Tobacco Cessation:Counseling Given: Not Answered Alcohol Use Standard Drinks/Week Comments Never 0 (1 standard drink = 0.6 oz pur e alcohol) PHQ-2 Answer Date Recorded Patient Health Questionnaire-2 Score 0 09/12/2024 PHQ-9 Answer Date Recorded Patient Health Questionnaire-9 Score 0 09/12/2024 Comments No Sex and Gender Information Value Date Recorded Sex Assigned at Not on file Legal Sex Female 6:47 PM EDT Gender Identity Not on file Sexual Orientation Not on file documented as of this encounter Last Filed Vital Signs Vital Sign Reading Time Taken Comments Blood Pressure 133/73 09/12/2024 10:04 AM EDT Pulse 98 09/12/2024 10:04 AM EDT Temperature 37.1 C (98.8 F) 09/12/2024 10:04 AM EDT Respiratory Rate 16 09/12/2024 10:04 AM EDT Oxygen Saturation 96% 09/12/2024 10:04 AM EDT Inhaled Oxygen Concentration - - Weight 58.7 kg (129 lb 6.6 oz) 09/12/2024 10:04 AM EDT Height 160 cm (5' 3 ) 09/12/2024 10:04 AM EDT Body Mass Index 22.92 09/12/2024 10:04 AM EDT documented in this encounter Functional Status * Over the past 2 weeks, how often have you been bothered by any of the following problems? Question Answer Date of Assessment Author Little interest or pleasure in doing things Not at all 09/12/2024 10:34 AM Enedina Yoon RN Feeling down, depressed, or hopeless Not at all 09/12/2024 10:34 AM Enedina Yoon RN Patient Health Questionnaire -2 Score 0 09/12/2024 10:34 AM Enedina Yoon RN * Question Answer Date of Assessment Author Trouble falling or staying asleep, or sleeping too much Not at all 09/12/2024 10:34 AM Enedina Yoon RN Feeling tired or having lester le energy Not at all 09/12/2024 10:34 AM Enedina Yoon RN Poor appetite or overeating Not at all 09/12/2024 10 :34 AM Enedina Yoon RN Feeling bad about yourself - or that you are a failure or have let yourself or your family down Not at all 09/12/2024 10:34 AM Enedina Yoon RN Trouble concentrating on things, such as reading the newspaper or watching television Not at all 09/12/2024 10:34 AM Enedina Yoon RN Moving or speaking so slowly that other people could have noticed? Or the opposite - being so fidgety or restless that you have been moving around a lot more than usual. Not at all 09/12/2024 10:34 AM Enedina Yoon RN Thoughts that you would be better off or hurting yourself in some way Not at all 09/12/2024 10:34 AM Enedina Yoon RN Patient Health Questionnaire -9 Score 0 09/12/2024 10:34 AM EDT Enedina Tse RN * If you checked off any problems on this questionnaire so far, Question Answer Date of Assessment Author How difficult have these problems made it for you to do your work, take care of things at home, or get along with other people? Not difficult at all 09/12/2024 10:34 AM EDT Enedina Tse RN documented as of this encounter Miscellaneous Notes * Addendum Note - Ramona Maldonado MD - 09/12/2024 10:00 AM EDTAddended by: RAMONA MALDONADO on: 09/12/2024 02:53 PM Modules accepted: Level of Service * Progress Notes - Cosme Vance DO - 09/12/2024 10:00 AM EDT Images from the original note were not included. 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 She was was last seen by Dr Maldonado in ID clinic 08/28/2024. She had previously been seen in ID clinic before that in 09/2021 at which time she was discontinued on itraconazole following3 months of therapy and negative histo antigen levels. She was referred to ID again due to granulomas seen on Chest imaging for evaluation for syncopal episode 06/2024. She is following up 2 weeks after visit with Dr Maldonado for review of records from [facility]. No antifungal therapy has been started yet. Histoplasmosis antibodies detectable, but serum antigen non-elevated. Review of chest CT 06/2024 shows several calcified and non-calcified lymph nodes along with calcified granulomas Reports another syncopal episode, last Monday. reports went to bathroom, had LOC, Nothing found from ED, PPM SVT on interrogation. Continues to endorse cough which they feel is worse, reports more white spit up than actual phlegm, cough present both day and night. No dyspnea Review of Systems: 14 systems asked and answered negative except as noted in Subjective Medications: Current Medications[1] Objective: Vitals Vitals: 09/12/24 1004 BP: 133/73 Pulse: 98 Resp: 16 Temp: 37.1 ??C (98.8 ??F) SpO2: 96% Physical Exam: Physical Exam Vitals reviewed. Constitutional: General: She is not in acute distress. Appearance: She is not ill-appearing or toxic-appearing. HENT: Head: Normocephalic and atraumatic. Eyes: General: No scleral icterus. Conjunctiva/sclera: Conjunctivae normal. Cardiovascular: Rate and Rhythm: Normal rate. Pulses: Normal pulses. Heart sounds: No murmur heard. Pulmonary: Effort: Pulmonary effort is normal. No respiratory distress. Breath sounds: No wheezing. Abdominal: General: Abdomen is flat. Musculoskeletal: Right lower leg: No edema. Left lower leg: No edema. Skin: General: Skin is warm. Capillary Refill: Capillary refill takes less than 2 seconds. Coloration: Skin is not jaundiced. Findings: No bruising. Neurological: Mental Status: She is oriented to person, place, and time. Psychiatric: Mood and Affect: Mood normal. Behavior: Behavior normal. Labs CBC WBC ?? Hb ?? Plt ?? Hct ?? ANC ?? BMP Na ?? Cl ?? BUN ?? Glu ?? K ?? Co2 ?? Cr ?? Mg ??, Phos ?? LFT AST ?? AlkPhos ?? T Prot ?? ALK ?? Bili ?? Alb ?? D.Bili ?? IMAGING/STUDIES: CT chest 06/2024 Impression: Jacki Heart is a 69 y.o. 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 She is on low dose prednisone 5mg daily and 15mg weekly of methotrexate. She was seen in clinic 2 weeks ago for initial concern of recurrent histoplasmosis based on CT imaging earlier this year. She had labs since that last ID visit which had positive histo antibody(non-elevated titer) and negative histo serum antigen. Reviewed CT report which shows various nodules/ lymph nodules in lung which likely represent old histo or other previous infection. Currently we do not have strong evidence for active histo disease. We cannot explain her symptoms, but do not feel stro ngly they are result of histoplasmosis. Her syncopal episode, especially, which she is most concerned about is more likely cardiac and not from histo. We have reviewed all available lab/imaging data with her and have offered to start itraconazole given she's on immunosuppression and is having some symptoms such as cough, weight loss. However following lengthy shared-decision making discussion with her and son she has elected to forego treatment if we didn't think it would prevent further syncopal episodes-which we do not believe it would prevent. All questions/concerns patient had were answered. Recommendations: --forego antifungal treatment at this time --recommended she follow up with cardiology and PCM --we had placed pulmonary referral at last visit for further evaluation of these nodules, highly recommend she go to this referral --find it reasonable to follow up in 4 months to reassess how she's doing Aguilar Vance, DO Infectious Disease Fellow PGY-V Attending: Dr. Maldonado [1] Current Outpatient Medications: Gwffnwf-Fzpghrqzr-Hrff 333-133-5 MG tablet, Take by mouth., Disp: [...] 88 MCG tablet, , Disp: , Rfl: Cosigned by Ramona Maldonado MD at 09/12/2024 2:53 PM EDT Associated attestation - Ramona Maldonado MD - 09/12/2024 2:53 PM EDT I saw and evaluated the patient with the resident/fellow. I discussed the case with the resident/fellow and agree with the findings and plan as documented. documented in this encounter Plan of Treatment Upcoming Encounters Date Type Department Care Team (Late st Contact Info) Description 01/16/2025 10:00 AM EDT Office Visit [facility] [address] [place] [phone] Cosme Vance DO [address] [place], [place] [id number] Scheduled Referrals Name Type Priority Associated Diagnoses Order Schedule Follow Up ID Outpatient Referral Routine Lung granuloma (CMS/HCC) Expected: 01/13/2025, Expires: 10/13/2025 Ambulatory referral to Pulmonary Medicine Outpatient Referral Routine Lung granuloma (CMS/HCC) 1 Occurrences starting 09/12/2024 until 03/15/2026 documented as of this encounter Visit Diagnoses Diagnosis Lung granuloma (CMS/HCC)- Primary Histoplasmosis capsulati, unspecified documented in this encounter Additional Health Concerns Assessment Noted Time PHQ-9 Depression Total Score: 0 09/13/19 25 10:34 AM EDT A fall risk assessment has been complete d for the patient 09/12/2024 10:35 AM EDT A Body Mass Index follow-up plan has been documented for the patient 08/28/2024 9:02 AM EDT documented as of this encounter Care Teams Superintendent Electric Power Relationship Specialty Start Date End Date Flor Jackson, [place] [address] [place] [address] PCP - General 09/18/20 documented as of this encounter
--- OUTSIDE RECORDS SUMMARY | 2024-09-19 03:46 | XMS_ITS | Continuity of Care Document ---
Author Organization [facility] Phone Care Team Providers Care New Vehicle Sales Consultant Name Role Phone KALYAN ROGEL Admitting KALYAN ROGEL Unavailable KRISTEN CONTRERAS Primary Care KALYAN ROGEL Primary Attending ALLERGIES AND ADVERSE REACTIONS ALLERGIES AND ADVERSE REACTIONS Code System Allergy Substance Adverse Reaction Date Reaction (Severity) Comment Status Reported By Updated By No Known Allergies FAMILY HISTORY RELATION: Father Status: Cause of : Unknown Age at : Unknown SNOMED-CT Diagnosis Age At Onset Information not available RELATION: Mother Status: Cause of : Carcinoma of lung Age at : Unknown SNOMED-CT Diagnosis Age At Onset Information not available RESULTS Patient: NANDO HINOJOSA Date of : [birth year] 13 6 LABORATORY RESULTS Information is not available LABORATORY NARRATIVE RESULTS Information is not available RADIOLOGY RESULTS ORDER 100: NM MYOCARD SPEC W M/EF TRACKLESS TROLLEY DRIVER (LOINC: 20495-9) ORDER DATE: September 16, 2024 1:06:00 PM [facility] PERFORMING LAB: [address] [id number] Final Result Date: September 17 1:10:31 PM [facility] Nuclear stress test MICAELA COLLIER [facility] 2 EXAM: NM MYOCARD SPEC WM/EF TRACKLESS TROLLEY DRIVER [id number] DATE OF EXAM: 09/16/2024 09:05:00 PROVIDER: Mami Roberto MD TECHNIQUE: The patient was studied with a 1-day protocol due to presence of cardiac pacemaker and inability to walk the treadmill. FINDINGS: Baseline EKG showed ventricularly paced rhythm. No further interpretation was available. Heart rate varied from 69 to 115 beats per minute. Blood pressure varied from 174/74 to 181/82. Raw imaging showed no unusual uptake. Nuclear ejection fraction calculated at 51% at rest, 60% at stress. Wall motion was normal. Perfusion imaging showed homogeneous radiotracer uptake with no scintigraphic evidence of ischemia. Transient ischemic dilatation ratio is 0.97. CONCLUSIONS: Normal nuclear ejection fraction. No scintigraphic evidence of ischemia. DICTATED BY: Mami Roberto MD CW/MODL /[id number] Electronically Signed By: ALEXANDREA ANDERSON MD 2024-09-17 12:57:[address] [place] [address] Name: MICAELA COLLIER Exam Date: 09/16/2024 : 1955 Age 69 years Gender: F Physician: KALYAN ROGEL Facility: [facility] Facility HSV: Outpatient Exam: NM MYOCARD SPEC WM/EF TRACKLESS TROLLEY DRIVER NUCLEAR STRESS TEST Patient Name: MICAELA COLLIER Admit Date: 09/16/2024 Date of : 1955 Attending Physician: KALYAN ROGEL APRN Ordering Physician: KALYAN ROGEL Pre-authenticated by ALEXANDREA ANDERSON MD 2024-09-16 19:44:28 EXAM: NM MYOCARD SPEC WM/EF TRACKLESS TROLLEY DRIVER [id number] DATE OF EXAM: 09/16/2024 09:05:00 PROVIDER: Mami Roberto MD TECHNIQUE: The patient was studied with a 1-day protocol due to presence of cardiac pacemaker and inability to walk the treadmill. FINDINGS: 1. Baseline EKG showed ventricularly paced rhythm. No further interpretation was available. Heart rate varied from 69 to 115 beats per minute. Blood pressure varied from 174/74 to 181/82. 2. Raw imaging showed no unusual uptake. Nuclear ejection fraction calculated at 51% at rest, 60% at stress. Wall motion was normal. 3. Perfusion imaging showed homogeneous radiotracer uptake with no scintigraphic evidence of ischemia. Transient ischemic dilatation ratio is 0.97. CONCLUSIONS: 1. Normal nuclear ejection fraction. 2. No scintigraphic evidence of ischemia. DICTATED BY: Mami Roberto MD Legally authenticated by ALEXANDREA ANDERSON MD 2024-09-17 09:11:40 Dictated By: MAMI ROBERTO Transcribed By: VASU SANTIAGO Transcribed On: 09/17/2024 9:10 AM Electronically signed by: Janeen roberto 09/17/2024 Thank you for referring MICAELA COLLIER to [facility]. Legally authenticated by ALEXANDREA ANDERSON MD 2024-09-17 09:11:40 PATHOLOGY NARRATIVE RESULTS Information is not available [...] e Quantity Dates Comments Physician Updated [phone] REGADENOSON 0.4 MG/5ML SOLN 0.4 MG INTRAV ENOUS ONE TIME ADMINISTRA TION (UNSCHEDUL ED) Start: September 16, 2024 1:56:0 0 PM UT End: September 16, 2024 3:20:2 9 PM UT PEBBLES Jett APRN [id number] on September 16, 2024 3:20:00 PM UT SOCIAL HISTORY SOCIAL HISTORY SNOMED-CT Social History Element Description Effective Dates Offered Cessation Comment UpdatedBy [id number] Historical Tobacco smoking status Never Smoked Not Applicable [id number] on May 13, 2016 3:00:38 PM UT SOCIAL HISTORY - Gender Sex: Female SOCIAL [...] for each vital sign as of September 19, 2024 7:46:47 AM UT Loinc Code Vital Sign Activity Date Result Updated By 8302-2 Body height September 16, 2024 1:06:55 PM UTC 160.02 cm (63.0 in) [id number] on September 16, 2024 1:06:[place] [address]-1 Body mass index (BMI ) [Ratio] September 16, 2024 1:06:55 PM UTC 22.651 kg/m2 [id number] on September 16, 2024 1:06:55 PM UT 3140-1 Body Surface Area Derived From Formula September 16, 2024 1:06:55 PM UTC 1.599 m2 [id number] on September 16, 2024 1:06:[place] [address]-8 Body weight Measured September 16 1:06:55 PM UTC 58.0 kg (128.0 lb) [id number] on September 16, 2024 1:06:55 PM UT 8462-4 Diastolic blood pressure September 16, 2024 12:40:00 PM UTC 74.0 mm[Hg] [id number] on September 16, 2024 1:06:54 PM UT 8867-4 Heart rate September 16, 2024 12:40:00 PM UT 72 /min [id number] on September 16, 2024 1:06:[place] [address]-2 Oxygen saturation in Arterial blood by Pulse oximetry September 16, 2024 12:40:00 PM UT 100.0 % [id number] on September 16, 2024 1:06:54 PM UT 8480-6 Systolic blood pressure September 16, 2024 12:40:00 PM UTC 174.0 mm[Hg] [id number] on September 16, 2024 1:06:54 PM [facility] PEDIATRIC GROWTH CHART - VITAL SIGNS This [...] available. ENCOUNTERS ENCOUNTER INFORMATION Reason for Visit I44.2 Admission September 16, 2024 12:17:[address] [address] Discharge September 16, 2024 5:17:00 PM UT DISC HARGED TO HOME OR SELF CARE ENCOUNTER DIAGNOSES Notes information is not bruce ilable. Code System Diagnosis Onset Date Diagnosis information is not available. ABSTRACT DIAGNOSES Code System Diagnosis Updated By I44.2 ICD10 ATRIOVENTRICULAR BLOCK, COMP LETE [id number] on September 19, 2024 7:46:33 AM UT I49.8 ICD10 OTHER SPECIFIED CARDIAC ARRH YTHMIAS [id number] on September 19, 2024 7:46:33 AM UT R55 ICD10 SYNCOPE AND COLLAPSE [id number] on September 19, 2024 7:46:33 AM [facility] I44.2 ICD10 ATRIOVENTRICULAR BLOCK, COMP LETE [id number] on September 19, 2024 7:46:33 AM UT I49.8 ICD10 OTHER SPECIFIED CARDIAC ARRH YTHMIAS [id number] on September 19, 2024 7:46:33 AM UT R55 ICD10 SYNCOPE AND COLLAPSE [id number] on September 19, 2024 7:46:33 AM [facility] Z95.0 ICD10 PRESENCE OF CARDIAC PACEMAKE R [id number] on September 19, 2024 7:46:33 AM [facility] CARE TEAM Care New Vehicle Sales Consultant Role KALYAN ROGEL Admitting KALYAN ROGEL Referring KRISTEN CONTRERAS Primary Care KALYAN ROGEL Primary Attending CARE TEAM CARE drier Role on Team Status Start Date End Date Update d By DIANE PETERSON APRN PCP normal September 11, 2024 2:31:24 PM [facility] September 16, 2024 5:17:00 PM [facility] [id number] on September 11, 2024 2:31:24 PM [facility] PEBBLES Jett POULTRY CULLER Referring normal September 11, 2024 2:31:24 PM [facility] September 16, 2024 5:17:00 PM [facility] [id number] on September 11, 2024 2:31:24 PM [facility] PEBBLES Jett POULTRY CULLER Attending normal September 11, 2024 2:31:24 PM [facility] September 16, 2024 5:17:00 PM [facility] [id number] on September 11, 2024 2:31:24 PM [facility] PEBBLES KALYAN B POULTRY CULLER Admitting normal September 11, 2024 2:31:24 PM [facility] September 16, 2024 5:17:00 PM [facility] [id number] on September 11, 2024 2:31:24 PM [facility]
--- OUTSIDE RECORDS SUMMARY | 2024-10-25 16:04 | XMS_ITS | Encounter Summary ---
Author Organization Healthcare Address [address] [place] [id number] Care Team Providers Care Insights Analyst Name Role Phone Flor Jackson APRN Primary Care Provider [phone] Encounter Details Date Type Department Care Team (Latest Contact Info) Description 09/11/2024 Travel Social History Tobacco Use Types Packs/Day Years [...] 01/16/2025 10:00 AM EDT Office Visit [facility] [address] [place] [phone] Cosme Vance, DO [address] [place] [address] documented as of this encounter Visit Diagnoses Not on filedocumented in this encounter Additional Health Concerns Assessment Noted Time PHQ-9 Depression Total Score: 0 08/29/19 25 7:58 AM EDT A fall risk assessment has been complete d for the patient 08/28/2024 7:59 AM EDT A Body Mass Index follow-up plan has been documented for the patient 08/28/2024 9:02 AM EDT documented as of this encounter Care Teams Insights Analyst Relationship Specialty Start Date End Date Flor Jackson APRN [address] [place] [address] PCP - General 09/18/20 documented as of this encounter
--- NOTE | 2024-10-25 16:05 | MM_ITS ---
PROCEDURE INFORMATION: Exam: MG Bilateral Screening 3D Mammography Exam date and time: 10/25/2024 4:06 PM Age: 69 years old Clinical indication: Screening examination TECHNIQUE: Imaging protocol: Bilateral Screening tomosynthesis and 2D mammography including computer-aided detection (CAD) when performed. COMPARISON: No relevant prior studies available. FINDINGS: MAMMOGRAPHY: Breast composition: The breasts are heterogeneously dense, which may obscure small masses. Mass: Questioned 1.5 cm mass subareolar right breast. Architectural distortion: None. Calcifications: No suspicious calcifications. Asymmetric density: None. Skin thickening: None. Axillary adenopathy: None. IMPRESSION: Questioned subareolar right breast mass. Recommend right breast diagnostic mammogram including spot compression views of the right breast in the CC and MLO projections, a full 90 degree lateral view, and right breast ultrasound for further evaluation. ASSESSMENT: BI-RADS Category 0: Incomplete- Need Additional Imaging Evaluation.
--- OUTSIDE RECORDS SUMMARY | 2024-10-25 16:05 | XMS_ITS | Clinical Summary ---
Author Organization [facility] Address [address] [place] [address] Care Team Providers Care Surgical Manager Name Role Phone Flor Jackson APRN Primary Care Provider [phone] [phone] Allergies No known active allergies Medications Synthroid 88 MCG tablet 2 Active lisinopril 5 MG tablet Take 5 mg by mouth 1 (one) time each day. 2 Active sulfaSALAzine (Azulfidine) 500 MG tablet TAKE 1 TABLET BY MOUTH TWICE A DAY AFTER MEALS 2 Active predniSONE (Deltasone) 5 MG tablet Take 5 mg by mouth 1 (one) time each day. 2 Active metoprolol succinate XL (Toprol-XL) 50 MG 24 hr tablet Take 50 mg by mouth 1 (one) time each day. 2 Active itraconazole (Sporanox) 100 MG capsuleIndicati ons:Histoplasma capsulatum infection Take 2 capsules (200 mg total) by mouth 2 (two) times a day. Take 2 capsules by mouth 3 times a day for 3 days, then 2 capsules by mouth 2 times a day. 120 capsule 5 2 Active Additional Information Patient not taking.Reported on 09/12/2024 Calcium-Magnesi um-Zinc 333-133-5 MG tablet Take by mouth. Activ e ferrous sulfate 325 (65 Fe) MG tablet TAKE 1 TABLET BY MOUTH 3 TIMES A WEEK FOR 30 DAYS 5 Active folic acid (Folvite) 1 MG tablet Take 1 tablet by mouth 1 (one) time each day. 5 Active methotrexate 2.5 MG tablet Take 6 tablets (15 mg total) by mouth every 7 (seven) days. 5 Active naproxen sodium (Aleve) 220 MG tablet Take 1 tablet by mouth. 4 Active levothyroxine (Synthroid, Levoxyl) 125 MCG tablet take 1 tablet by mouth every morning on empty stomach 4 Active Active Problems Problem Noted Date Diagnosed Date Primary osteoarthritis involving multiple joints 12/01/2023 Syncope and collapse 06/06/2023 Chronic systolic heart failure 08/29/2022 Overview (08/28/2024): EF 50%. Euvolemic on medical therapy. Will watch. May need pacemaker upgrade in the future. 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); Histoplasmosis capsulati, 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/2024 Travel 09/11/2024 Travel 08/28/2024 8:00 AM EDT Office Visit [address] [phone] Ramona Maldonado MD 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); Histoplasmosis capsulati, unspecified 08/28/2024 Travel from Last 3 Months Immunizations Immunization Administration Dates Next Due Influenza, High-dose, Split Virus, Trivalent, Injectable, preservative free 02/10/2024,02/25/2018 Influenza, Unspecified 01/24/2020 Influenza, high-dose, quadrivalent 02/10,02/04/2022,02/07/2020,2017 Influenza, injectable, quadr ivalent, preservative free 01/13/2021,02/03/2017 Moderna Covid-19 Vaccine 12y +, Price Protein, Preservative free 08/17/2020,07/30/2020 Zoster, Recombinant 12/14/2020,02/07/2020 Family History Medical History Relation Name Comments Lung cancer Mother Relation Name Status Comments Mother Social History Tobacco Use Types Packs/Day Years [...] on file Sexual Orientation Not on file Last Filed Vital Signs Vital Sign Reading [...] Mass Index 22.92 09/12/2024 10:04 AM EDT Plan of Treatment Upcoming Encounters Date Type Department Care Team (Late st Contact Info) Description 01/16/2025 10:00 AM EDT Office Visit [facility] [address] [place] [phone] Cosme Vance DO [address] [place], [place] [id number] Health Maintenance Due Date Last Done Comments [facility]-Bone Density Scan 1955 [facility]-Infant/Child/Adol SDOH Screenings 1955 [facility]- SDOH Screenings 1971 [facility]-Adult SDOH Screenings 1971 [facility]-DTaP,Tdap,and Td Vaccines (1 - Tdap) 02/14/1972 [facility]-Pneumococcal Vaccine: 50+ Years (1 of 2 - PCV) 02/14/1972 CT Colonography 1998 Colonoscopy 1998 FIT-DNA 1998 FIT 1998 FOBT 1998 Sigmoidoscopy 1998 [facility]-Colorectal Cancer Screening 1998 [facility]-Breast Cancer Screening 2003 [facility]-RSV Vaccine: 60+ Years or (1 - Risk 60-74 years 1-dose series) 2013 [id number] Vaccine (2023- season) 2024 05/15/2021, 08/19/2020, 08/17/2020, Additional history exists [facility]-Depression Screening 09/12/2025 09/12/2024, 12/2024 [facility]-Hepatitis C Screening Completed 05/24/2016 [facility]-Zoster Vaccines Completed 12/14/2020, [facility]-Influenza Vaccine Completed 02/10/2024 , 02/10/2023, 02/04/2022, Additional history exists HPV Vaccines Aged Out No longer eligi ble based on patient's age to complete this topic [facility]-HIB Vaccines Aged Out No longer e ligible based on patient's age to complete this topic [facility]-Hepatitis A Vaccines Aged Out No longer eligible based on patient's age to complete this topic [facility]-IPV Vaccines Aged Out No longer e ligible based on patient's age to complete this topic [facility]-Rotavirus Vaccines Aged Out No lo nger eligible based on patient's age to complete this topic Procedures Procedure Name Priority Date/Time Associated Diagnosis Comments FUNGAL ANTIBODIES BY IMMUNODIFFUSION (SO) Routine 08/28/2024 8:53 AM EDT Lung granuloma (CMS/HCC) FUNGAL ANTIBODIES WITH REFLEX TO BLASTOMYCES DERMATITIDIS ABS BY IMMUNODIFFUSION (SO) Routine 08/28/2024 8:53 AM EDT Lung granuloma (CMS/HCC) HISTOPLASMA GALACTOMANNAN EIA, SERUM (SO) Routine 08/28/2024 8:53 AM EDT Lung granuloma (CMS/HCC) QUANTIFERON TB GOLD PLUS Routine 08/28/2024 8:53 AM EDT Lung granuloma (CMS/HCC) COMPREHENSIVE METABOLIC PANEL, PLASMA Routine 08/28/2024 8:53 AM EDT Lung granuloma (CMS/HCC) FUNGAL SEROLOGY (COMP FIX AND ID)(SO) Routine 08/28/2024 8:53 AM EDT Lung granuloma (CMS/HCC) ASPERGILLUS GALACTOMANNAN EIA (SO) Routine 08/28/2024 8:53 AM EDT Lung granuloma (CMS/HCC) AFB BLOOD CULTURE Routine 08/28/2024 8:5 3 AM EDT Lung granuloma (CMS/HCC) FUNGAL BLOOD CULTURE Routine 08/28/2024 8:53 AM EDT Lung granuloma (CMS/HCC) ISOLATOR BLOOD CULTURE Routine 8:53 AM EDT Lung granuloma (CMS/HCC) ACUTE HEPATITIS PANEL Routine 05/24/2016 6:13 AM EST from Last 3 Months or Most Recently Relevant to Health Maintenance Results * Histoplasma Galactomannan EIA, Serum (SO) (08/28/2024 8:53 AM EDT) Histoplasma Galactomannan EIA, Serum <0.3 <0.3 ng/mL 08/29/2024 6:16 PM EDT [facility] ([facility]) Comment: This test is used for the [...] characteristics of this test were determined by [employer]. It has not been cleared or approved by the U.S. Food and Drug Administration. Testing Performed at: [facility] [address] [place] [address], [facility] [address] [place] [address] Clothing Consultant: Quinn Castro, PhD [facility] (TASHI) CLIA # [id number] FLAG Interpretation: A = Abnormal, H = High, L = Low Blood Venous blood specimen / Unknown Venipuncture / Unknown 08/28/2024 8:53 AM EDT 08/28/2024 9:00 AM EDT [facility] (ROBIN) - 08/29/2024 6:16 PM EDT Release to patient in MyChart->Immediate us Ramona Maldonado MD LAB REF LAB BLOOD AND FLUID OR D Final Result LELO SAGLADO) * Fungal Blood Culture (08/28/2024 8:53 AM EDT) Culture No Fungal Growth at 6 Weeks 10/10/2024 5:44 AM EDT [facility] Blood Venous blood specimen / Unknown Venipuncture / Unknown 08/28/2024 8:53 AM EDT 08/28/2024 9:00 AM EDT Ramona Maldonado MD LAB MICROBIOLOGY - GENERAL ORD ERABLES Final Result [facility] [address] [place] [address] * ASPERGILLUS GALACTOMANNAN EIA (SO) (08/28/2024 8:53 AM EDT) Pathologist [facility] Aspergillus galactomannan EIA serum 0.053 <0.500 08/29/2024 4:11 PM EDT LELO (ROBIN) Comment: Interpretation: Patients with an index value [...] Aspergillus Galactomannan EIA is a product of [employer] and is FDA approved for in vitro diagnostic use. Testing Performed at: [facility] [address] [place] [address], [address] [place] [address] Clothing Consultant: Quinn Castro, PhD KERRIE (ABB) CLIA # [id number] FLAG Interpretation: A = Abnormal, H = High, L = Low Blood Venous blood specimen / Unknown Venipuncture / Unknown 08/28/2024 8:53 AM EDT 08/28/2024 9:00 AM EDT Narrative LELO (ROBIN) - 08/29/2024 4:11 PM EDT Release to patient in MyChart->Immediate us Ramona Maldonado MD LAB BLOOD ORDERABLES Final Res ult LELO SALGADO) * (ABNORMAL) Fungal ABs by [employer]. (08/28/2024 8:53 AM EDT) BLASTOMYCES DERMATITIDIS ABS, PRECIPITIN Not Detected Not Detected 09/01/2024 10:26 PM EDT [facility] ([facility]) ASPERGILLUS SPP. ABS, PRECIPITIN Not Detected Not Detected 09/01/2024 10:26 PM EDT [facility] ([facility]) HISTOPLASMA ANTIBODIES BY ID Detected(A) Not Detected 09/01/2024 10:26 PM EDT [facility] ([facility]) Cocc. Immitis CF Not Detected Not Detected 09/01/2024 10:26 PM EDT [facility] ([facility]) Blood Venous blood specimen / Unknown Venipuncture / Unknown 08/28/2024 8:53 AM EDT 08/28/2024 9:00 AM EDT Narrative [facility] ([facility]) - 09/01/2024 10:26 PM EDT M band was detected, suggesting recent or previous histoplasmosis. No Blastomyces antibodies were detected. This result does not exclude Blastomyces infection. No Aspergillus antibodies were detected. This result does not exclude Aspergillus infection. No Coccidioides antibodies (ie, IDTP (IgM), IDCF (IgG)) were detected. This result does not exclude Coccidioides infection. Performed By: [facility] [address] [place] [address] Hand Cooper Helper: Manny Ceja MD, PhD CLIA Number: [id number] us Ramona Maldonado MD LAB BLOOD ORDERABLES Final Res ult [facility] (ROBIN) [address] [place] [address] * Fungal ABs with Reflex to Blastomyces dermatitidis ABs by [facility] (08/28/2024 8:53 AM EDT) Aspergillus CF <1:8 <1:8 08/31/2024 4:32 PM EDT [facility] ([facility]) COCCIDIOIDES ANTIBODY BY CF <1:2 <1:2 08/31/2024 4:32 PM EDT [facility] ([facility]) HISTOPLASMA MYCELIA, CF <1:8 <1:8 08/31/2024 4:32 PM EDT [facility] ([facility]) Histo. CAP. Yeast CF <1:8 <1:8 08/31/2024 4:32 PM EDT [facility] ([facility]) BLASTOMYCES ANTIBODY BY EIA, SER 0.4 <=0.9 IV 08/31/2024 4:32 PM EDT [facility] ([facility]) Blood Venous blood specimen / Unknown Venipuncture / Unknown 08/28/2024 8:53 AM EDT 08/28/2024 9:00 AM EDT Narrative [facility] ([facility]) - 08/31/2024 4:32 PM EDT INTERPRETIVE INFORMATION: Coccidioides Ab by Complement Fixation (CF) A titer of 1:2 or greater suggests past or current infection. However, greater than 30 percent of cases with chronic residual pulmonary disease have negative complement fixation (CF) tests. Titers of less than 1:32 (even as low as 1:2) may indicate past infection or self-limited disease; anticoccidioidal CF antibody titers in excess of 1:16 may indicate disseminated infection. CF serology may be used to follow therapy. Antibody in CSF is considered diagnostic for coccidioidal meningitis, although 10 percent of patients with coccidioidal meningitis will not have antibody in CSF. INTERPRETIVE INFORMATION: Blastomyces Antibodies EIA, SER 0.9 IV or less.......Negative 1.0-1.4 IV...........Equivocal 1.5 IV or greater....Positive INTERPRETIVE INFORMATION: Histoplasma Mycelia Antibodies by CF A titer of 1:8 or greater is generally considered presumptive evidence of histoplasmosis. A titer of 1:32 or greater or rising titers indicate strong presumptive evidence of histoplasmosis. Cross reactions, usually at lower titers, may occur with other fungal diseases. INTERPRETIVE INFORMATION: Histoplasma Yeast Antibodies by CF A titer of 1:8 or greater is generally considered presumptive evidence of histoplasmosis. A titer of 1:32 or greater or rising titers indicate strong presumptive evidence of histoplasmosis. Cross reactions, usually at lower titers, may occur with other fungal diseases. INTERPRETIVE INFORMATION: Aspergillus Antibodies by CF A titer of 1:8 or greater suggests Aspergillus infection or allergy. Cross-reactions with dimorphic fungi are not unusual within the genus Aspergillus. Performed By: [facility] [address] [place] [address] Hand Cooper Helper: Manny Ceja MD, PhD CLIA Number: [id number] us Ramona Maldonado MD LAB BLOOD ORDERABLES Final Res ult [facility] ([facility]) [address] [place] [address] * Quantiferon TB Gold (08/28/2024 8:53 AM EDT) [facility] [address] Quantiferon TB Gold Plus Result Negative Negative 08/29/2024 4:49 PM EDT [facility] TB Nill Value 0.0586 IU/mL 08/29/2024 4:49 PM EDT [facility] TB Antigen 1 0.0054 IU/mL 08/29/2024 4:49 PM EDT [facility] TB Antigen 2 0.0097 IU/mL 08/29/2024 4:49 PM EDT [facility] TB Mitogen 2.3014 IU/mL 08/29/2024 4:49 PM EDT [facility] Blood Venous blood specimen / Unknown Venipuncture / Unknown 08/28/2024 8:53 AM EDT 08/28/2024 9:00 AM EDT Narrative [facility] - 08/29/2024 4:49 PM EDT Responses to the Mitogen positive control and occasionally to TB antigen can be above the assay range. For calculation purposes: IFN-gamma values > 10 IU/mL are handled as 10 IU/mL. us Ramona Maldonado MD LAB BLOOD ORDERABLES Final Res ult Performing Organization Address City/[facility]/ZIP Co de Phone Number [facility] [address] [place] [address] * AFB Blood Culture (08/28/2024 8:53 AM EDT) Pathologist [facility] AFB Culture No Mycobacterial Growth at 6 Weeks 10/10/2024 5:44 AM EDT [facility] Blood Venous blood specimen / Unknown Venipuncture / Unknown 08/28/2024 8:53 AM EDT 08/28/2024 9:00 AM EDT us Ramona Maldonado MD LAB MICROBIOLOGY - GENERAL ORD ERABLES Final Result Performing Organization Address [facility]/ZIP Co de Phone Number [facility] [address] [place] [address] * (ABNORMAL) Comprehensive metabolic panel (08/28/2024 8:53 AM EDT) Pathologist [facility] Glucose, Plasma 89 74 - 99 mg/dL 08/28/2024 12:19 PM EDT [facility] BUN, Plasma 18 8 - 23 mg/dL 08/28/2024 12:19 PM EDT [facility] Creatinine, Plasma 0.71 0.60 - 1.10 mg/dL 08/28/2024 12:19 PM EDT [facility] BUN/Creatinine Ratio 25 08/28/2024 12:19 PM EDT [facility] Sodium, Plasma 134(L) 136 - 145 mmol/L 08/28/2024 12:19 PM EDT [facility] Potassium, Plasma 4.4 3.6 - 4.9 mmol/L 08/28/2024 12:19 PM EDT [facility] Chloride, Plasma 99 97 - 107 mmol/L 08/28/2024 12:19 PM EDT [facility] CO2, Plasma 23 22 - 29 mmol/L 08/28/2024 12:19 PM EDT [facility] Anion Gap 12 6 - 16 mmol/L 08/28/2024 12:19 PM EDT [facility] Total Calcium, Plasma 10.2 8.9 - 10.2 mg/dL 08/28/2024 12:19 PM EDT [facility] Total Protein 8.1(H) 6.3 - 7.9 g/dL 08/28/2024 12:19 PM EDT [facility] Albumin, Plasma 4.3 3.5 - 5.2 g/dL 08/28/2024 12:19 PM EDT [facility] AST, Plasma 34 10 - 35 U/L 08/28/2024 12:19 PM EDT [facility] ALT, Plasma 13 10 - 35 U/L 08/28/2024 12:19 PM EDT [facility] Alkaline Phosphatase, Plasma 70 46 - 142 U/L 08/28/2024 12:19 PM EDT [facility] Total Bilirubin, Plasma 0.3 0.2 - 1.1 mg/dL 08/28/2024 12:19 PM EDT [facility] eGFRcr 91.0 mL/min/1.7 3m*2 08/28/2024 12:19 PM EDT [facility] Comment:Reported eGFRcr in m L/min/1.73m2 is based the CKD-EPI 2020 equation that does not use a race coefficient. Blood Venous blood specimen / Unknown Venipuncture / Unknown 08/28/2024 8:53 AM EDT 08/28/2024 9:00 AM EDT us Ramona Maldonado MD LAB BLOOD ORDERABLES Final Res ult [facility] [address] [place] [address] * Acute Hepatitis Panel (05/24/2016 6:13 AM EST) Hepatitis B Surf Antigen NEGATIVE Reference Value: Negative [facility] Hepatitis C Antibody NEGATIVE Reference Range: Negative [facility] Hepatitis A Antibody IgM NEGATIVE Reference Value: Negative [facility] External Hepatitis B Core IgM (HBCM) NEGATIVE Reference Value: Negative [facility]QUEST 05/24/2016 6:13 AM EST 05/24/2016 7:04 AM EST us Historical Provider LAB BLOOD ORDERABLES Maris cuellar Result [facility]QUEST from Last 3 Months or Most Recently Relevant to Health Maintenance Insurance [facility] [place] [phone] [facility] Care Teams Surgical Manager Relationship Specialty Start Date End Date Flor Jackson APRN [facility] [place] [address] PCP - General 09/18/20
--- OUTSIDE RECORDS SUMMARY | 2024-10-25 16:05 | XMS_ITS | Encounter Summary ---
Author Organization [facility] Address [address] [place] [address] Care Team Providers Care Biomedical Equipment Technician Name Role Phone Flor Jackson APRN Primary Care Provider [phone] [phone] Encounter Details Date Type Department Care Team (Latest Contact Info) Description 09/12/2024 Travel Social History Tobacco Use Types Packs/Day [...] on file documented as of this encounter Functional Status * Over the [...] Questionnaire -9 Score 0 09/12/2024 10:34 AM Enedina Yoon RN * If you checked off any problems on this questionnaire so far, Question Answer Date of Assessment Author How difficult have these problems made it for you to do your work, take care of things at home, or get along with other people? Not difficult at all 09/12/2024 10:34 AM Enedina Yoon RN documented as of this encounter Plan of Treatment Upcoming Encounters Date Type Department Care Team (Late st Contact Info) Description 01/16/2025 10:00 AM EDT Office Visit [facility] [address] [place] [address] Cosme Vance, DO [address] [place] [id number] documented as of this encounter Visit Diagnoses [...] documented as of this encounter Care Teams Biomedical Equipment Technician Relationship Specialty Start Date End Date Flor Jackson APRN [address] [place] [address] PCP - General 09/18/20 documented as of this encounter
--- OUTSIDE RECORDS SUMMARY | 2024-10-25 16:05 | XMS_ITS | Encounter Summary ---
Author Organization [facility] Address [address] [place] [address] Care Team Providers Care Content Analyst Name Role Phone Flor Jackson APRN Primary Care Provider [phone] Encounter Details Date Type Department Care Team (Latest Contact Info) Description 08/28/2024 Travel Social History Tobacco Use Types Packs/Day [...] things Not at all 08/28/2024 7:58 AM SARAHT Sandro Tran Feeling down, depressed, or hopeless Not at all 08/07 7:58 AM SARAHT Sandro Tran Patient Health Questionnaire-2 Score 0 08/07 7:58 AM EDT Sandro Tran * Question Answer Date of Assessment Author Trouble falling or staying a sleep, or sleeping too much Not at all 08/28/2024 7:58 AM EDSandro Garces Feeling tired or having little energy Not at all 7:58 AM EDSandro Garces Poor appetite or overeating Not at all 08/28/2024 7: 58 AM EDT Sandro Tran Feeling bad about yourself - or that you are a failure or have let yourself or your family down Not at all 08/28/2024 7:58 AM EDSandro Garces Trouble concentrating on thi ngs, such as reading the newspaper or watching television Not at all 08/28/2024 7:58 AM Sandro Rodriguez A Moving or speaking so slowly that other people could have noticed? Or the opposite - being so fidgety or restless that you have been moving around a lot more than usual. Not at all 08/28/2024 7:58 AM EDT Sandro Tran Thoughts that you would be b feng off or hurting yourself in some way Not at all 08/28/2024 7:58 AM Sandro Rodriguez Patient Health Questionnaire-9 Score 0 08/07 7:58 AM EDSandro Garces * If you checked off any problems on this questionnaire so far, Question Answer Date of Assessment Author How difficult have these problems made it for you to do your work, take care of things at home, or get along with other people? Not difficult at all 08/28/2024 7:58 AM EDT Sandro Tran documented as of this encounter Plan of Treatment Upcoming Encounters Date Type Department Care Team (Late st Contact Info) Description 01/16/2025 10:00 AM EDT Office Visit [facility] [address] [place] [phone] Cosme Vance, DO [address] [place] [address] documented as of this encounter Visit Diagnoses [...] documented as of this encounter Care Teams Content Analyst Relationship Specialty Start Date End Date Flor Jackson APRN [address] [place] [address] PCP - General 09/18/20 documented as of this encounter
== END 2024-10-25 23:59 | disposition home or self-care (01) ==
LOC: RAD 16:02
PROVIDERS: PCP Nurse Practitioner; Visit Provider Nurse Practitioner
DX: Z12.31 Encounter for screening mammogram for malignant neoplasm of breast (principal); N63.41 Unspecified lump in right breast, subareolar; R92.333 Mammographic heterogeneous density, bilateral breasts
CPT/HCPCS: 77063; 77067

== ENCOUNTER 2024-11-14 10:12 | Outpatient (CLI) | payer BC, SELFPAY ==
--- NOTE | 2024-11-14 10:14 | US_ITS ---
PROCEDURE INFORMATION: Exam: US Right Breast, Complete MG Right Diagnostic Breast Tomosynthesis Exam date and time: 11/14/2024 10:21 AM Age: 69 years old Clinical indication: Callback for additional assessment of possible 1.5 cm subareolar right breast mass identified on screening mammogram 10/26/2023 TECHNIQUE: Imaging protocol: Complete ultrasound of all four quadrants of the right breast and the retroareolar regions, including ultrasound of the axilla when performed. Right Diagnostic tomosynthesis and 2D mammography including computer-aided detection (CAD) when performed. Unilateral or bilateral exam. Right Diagnostic mammography including computer-aided detection (CAD) when performed. Unilateral exam. COMPARISON: 10/25/2024 FINDINGS: MAMMOGRAPHY: Breast composition: The breast is heterogeneously dense, which may obscure small masses. Breast mammogram findings: There is a persistent ill-defined right lateral retroareolar 1.8 cm mass without associated distortion or suspicious calcifications ULTRASOUND: Breast ultrasound findings: In the region of mammographic interest, right retroareolar breast fellow there is a 1.5 x 0.7 x 0.3 cm heterogeneous hypoechoic tubular structure, thought to be within a duct. While not significantly vascular, intraductal neoplasm including papillary neoplasm or DCIS should be considered. In the right axilla there is a 1.3 cm lymph node with relatively thickened cortex with diminutive fatty hilum. This is abnormal IMPRESSION: Ultrasound-guided biopsy is recommended to definitively characterize the tubular suspected intraductal mass in the retroareolar right breast Morphologically abnormal appearing 1.3 cm right axillary lymph node. If biopsy results in negative/benign findings then three-month follow-up targeted ultrasound should be performed to assure resolution assuming that this reflects inflammation. If biopsy results in malignancy then suspicion should be raised for possible regional metastatic disease THIS REPORT CONTAINS FINDINGS THAT MAY BE CRITICAL TO PATIENT CARE. The findings were verbally communicated via telephone conference with KRISTEN CONTRERAS at 8:30 AM EDT on 11/20/2024. The findings were acknowledged and understood. ASSESSMENT: BI-RADS category 4: Suspicious
--- OUTSIDE RECORDS SUMMARY | 2024-11-14 10:15 | XMS_ITS | Clinical Summary ---
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); Histoplasmosis capsulati, 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/2024 Travel 09/11/2024 Travel 08/28/2024 8:00 AM EDT Office Visit [address] [address] Ramona Maldonado MD 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); Histoplasmosis capsulati, unspecified 08/28/2024 Travel [...] Care Team (Late st Contact Info) Description 01/08/2025 10:00 AM EDT Office Visit [facility] [address] [place] [address] Ramona Maldonado MD [address] [facility] [address] [place] [address] Health Maintenance Due Date Last Done Comments [...] - Risk 60-74 years 1-dose series) 2013 [id number] Vaccine ( season) 2024 05/15/2021, 08/19/2020, 08/17/2020, Additional history exists UKY-Influenza Vaccine (#1) 01/06/202502/09, 02/10/2023, 02/04/2022, Additional history exists [facility]Y-Depression Screening 09/12/2025 09/12/2024, 12/2024 [facility]Y-Hepatitis C Screening Completed 05/24/2016 UKY-Zoster Vaccines Completed 12/14/2020, HPV Vaccines Aged Out No longer eligi [...] <0.3 <0.3 ng/mL 08/29/2024 6:16 PM EDT [facility] ([facility]) Comment: This test is used for the [...] characteristics of this test were determined by [employer]. It has not been cleared or approved by the U.S. Food and Drug Administration. Testing Performed at: [facility] [address] [place] [address], [address] [place] [address] Knot Tying Operator: Quinn Castro, PhD KERRIE (ABB) CLIA # [id number] FLAG Interpretation: A = Abnormal, H = High, L = Low Blood Venous blood specimen / Unknown Venipuncture / Unknown 08/28/2024 8:53 AM EDT 08/28/2024 9:00 AM EDT [facility] [employer] ([employer]) - 08/29/2024 6:16 PM EDT Release to patient in [facility]Immediate us Ramona Maldonado MD LAB REF LAB BLOOD AND FLUID OR D Final Result LELO SALGADO) * Fungal Blood Culture (08/28/2024 8:53 AM EDT) Culture No Fungal Growth at 6 Weeks 10/10/2024 5:44 AM EDT [facility] Blood Venous blood specimen / Unknown Venipuncture / Unknown 08/28/2024 8:53 AM EDT 08/28/2024 9:00 AM EDT us Ramona Maldonado MD LAB MICROBIOLOGY - GENERAL ORD ERABLES Final Result [facility] [address] [place] [address] * ASPERGILLUS GALACTOMANNAN EIA (SO) (08/28/2024 8:53 AM EDT) Aspergillus galactomannan EIA serum 0.053 <0.500 08/29/2024 4:11 PM EDT LELO SALGADO) Comment: Interpretation: Patients with an index value [...] Aspergillus Galactomannan EIA is a product of [employer] and is FDA approved for in vitro diagnostic use. Testing Performed at: [facility] [address], [address] [place] [address] Knot Tying Operator: Quinn Castro, PhD KERRIE (ABB) IA # [id number] FLAG Interpretation: A = Abnormal, H = High, L = Low Blood Venous blood specimen / Unknown Venipuncture / Unknown 08/28/2024 8:53 AM EDT 08/28/2024 9:00 AM EDT Narrative [employer] (ROBIN) - 08/29/2024 4:11 PM EDT Release to patient in MyChart->Immediate Ramona Maldonado MD LAB BLOOD ORDERABLES Final Res ult [employer] (Birthday GorillaMICHELLE) * (ABNORMAL) Fungal ABs by [facility]. (08/28/2024 8:53 AM EDT) BLASTOMYCES DERMATITIDIS ABS, PRECIPITIN Not Detected Not Detected 09/01/2024 10:26 PM EDT [facility] ([facility]) ASPERGILLUS SPP. ABS, PRECIPITIN Not Detected Not Detected 09/01/2024 10:26 PM EDT [facility] ([facility]) HISTOPLASMA ANTIBODIES BY ID Detected(A) Not Detected 09/01/2024 10:26 PM EDT [facility] ([facility]) Cocc. Immitis CF Not Detected Not Detected 09/01/2024 10:26 PM EDT [facility] ([facility]) Blood Venous blood specimen / Unknown Venipuncture / Unknown 08/28/2024 8:53 AM EDT 08/28/2024 9:00 AM EDT Narrative [facility] ([facility]) - 09/01/2024 10:26 PM EDT M band was detected, suggesting recent or previous histoplasmosis. No Blastomyces antibodies were detected. This result does not exclude Blastomyces infection. No Aspergillus antibodies were detected. This result does not exclude Aspergillus infection. No Coccidioides antibodies (ie, IDTP (IgM), IDCF (IgG)) were detected. This result does not exclude Coccidioides infection. Performed By: [facility] [address] [place] [address] Wet Char Conveyor Tender: Manny Ceja MD, PhD CLIA Number: [id number] us Ramona Maldonado MD LAB BLOOD ORDERABLES Final Res ult [facility] ([facility] [address] [place] [address] * Fungal ABs with Reflex to Blastomyces dermatitidis ABs by Immunodiffusion (08/28/2024 8:53 AM EDT) Aspergillus CF <1:8 <1:8 08/31/2024 4:32 PM EDT [facility] ([facility]) COCCIDIOIDES ANTIBODY BY CF <1:2 <1:2 08/31/2024 4:32 PM EDT [facility] ([facility]) HISTOPLASMA MYCELIA, CF <1:8 <1:8 08/31/2024 4:32 PM EDT [facility] ([facility]) Histo. CAP. Yeast CF <1:8 <1:8 08/31/2024 4:32 PM EDT [facility] ([facility]) BLASTOMYCES ANTIBODY BY EIA, SER 0.4 <=0.9 IV 08/31/2024 4:32 PM EDT [facility] ([facility]) Blood Venous blood specimen / Unknown Venipuncture / Unknown 08/28/2024 8:53 AM EDT 08/28/2024 9:00 AM EDT Narrative [facility] ([employer]) - 08/31/2024 4:32 PM EDT INTERPRETIVE INFORMATION: [...] unusual within the genus Aspergillus. Performed By: [facility] [address] [place] [address] Wet Char Conveyor Tender: Manny Ceja MD, PhD CLIA Number: [id number] us Ramona Maldonado MD LAB BLOOD ORDERABLES Final Res ult [facility] ([facility]) [address] [place], [place] [id number] * Quantiferon TB Gold (08/28/2024 8:53 AM EDT) [facility] Quantiferon TB Gold Plus Result Negative Negative 08/29/2024 4:49 PM EDT [facility] TB Nill Value 0.0586 IU/mL 08/29/2024 4:49 PM EDT [facility] TB Antigen 1 0.0054 IU/mL 08/29/2024 4:49 PM EDT [facility] TB Antigen 2 0.0097 IU/mL 08/29/2024 4:49 PM EDT [facility] TB Mitogen 2.3014 IU/mL 08/29/2024 4:49 PM EDT [facility] Blood Venous blood specimen / Unknown Venipuncture / Unknown 08/28/2024 8:53 AM EDT 08/28/2024 9:00 AM EDT Narrative [facility] - 08/29/2024 4:49 PM EDT Responses to the Mitogen positive control and occasionally to TB antigen can be above the assay range. For calculation purposes: IFN-gamma values > 10 IU/mL are handled as 10 IU/mL. us Ramona Maldonado MD LAB BLOOD ORDERABLES Final Res ult [facility] [address] [place] [address] * AFB Blood Culture (08/28/2024 8:53 AM EDT) Pathologist [facility] AFB Culture No Mycobacterial Growth at 6 Weeks 10/10/2024 5:44 AM EDT [facility] Blood Venous blood specimen / Unknown Venipuncture / Unknown 08/28/2024 8:53 AM EDT 08/28/2024 9:00 AM EDT us Ramona Maldonado MD LAB MICROBIOLOGY - GENERAL ORD ERABLES Final Result Performing Organization Address City/[facility]/[place] [address] * (ABNORMAL) Comprehensive metabolic panel (08/28/2024 8:53 AM EDT) Glucose, Plasma 89 74 - 99 mg/dL 08/28/2024 12:19 PM EDT [facility] BUN, Plasma 18 8 - 23 mg/dL 08/28/2024 12:19 PM EDT [facility] Creatinine, Plasma 0.71 0.60 - 1.10 mg/dL 08/28/2024 12:19 PM EDT [facility] BUN/Creatinine Ratio 25 08/28/2024 12:19 PM EDT [facility] Sodium, Plasma 134(L) 136 - 145 mmol/L 08/28/2024 12:19 PM EDT [facility] Potassium, Plasma 4.4 3.6 - 4.9 mmol/L 08/28/2024 12:19 PM EDT [facility] Chloride, Plasma 99 97 - 107 mmol/L 08/28/2024 12:19 PM EDT [facility] CO2, Plasma 23 22 - 29 mmol/L 08/28/2024 12:19 PM EDT [facility] Anion Gap 12 6 - 16 mmol/L 08/28/2024 12:19 PM EDT [facility] Total Calcium, Plasma 10.2 8.9 - 10.2 mg/dL 08/28/2024 12:19 PM EDT [facility] Total Protein 8.1(H) 6.3 - 7.9 g/dL 08/28/2024 12:19 PM EDT [facility] Albumin, Plasma 4.3 3.5 - 5.2 g/dL 08/28/2024 12:19 PM EDT [facility] AST, Plasma 34 10 - 35 U/L 08/28/2024 12:19 PM EDT [facility] ALT, Plasma 13 10 - 35 U/L 08/28/2024 12:19 PM EDT [facility] Alkaline Phosphatase, Plasma 70 46 - 142 U/L 08/28/2024 12:19 PM EDT [facility] Total Bilirubin, Plasma 0.3 0.2 - 1.1 mg/dL 08/28/2024 12:19 PM EDT [facility] eGFRcr 91.0 mL/min/1.7 3m*2 08/28/2024 12:19 PM EDT [facility] Comment:Reported eGFRcr in m L/min/1.73m2 is based the CKD-EPI 2020 equation that does not use a race coefficient. Blood Venous blood specimen / Unknown Venipuncture / Unknown 08/28/2024 8:53 AM EDT 08/28/2024 9:00 AM EDT us Ramona Maldonado MD LAB BLOOD ORDERABLES Final Res ult [facility] [address] [place] [address] * Acute Hepatitis Panel (05/24/2016 6:13 AM [...] Most Recently Relevant to Health Maintenance Insurance [facility] [place] [address] [facility] Care Teams Carton Inspector Relationship Specialty Start Date End Date Flor Jackson APRN [facility] [place] [address] PCP - General 09/18/20
== END 2024-11-14 23:59 | disposition home or self-care (01) ==
LOC: RAD 10:12
PROVIDERS: PCP Nurse Practitioner; Visit Provider Nurse Practitioner
DX: N63.41 Unspecified lump in right breast, subareolar (principal); R59.0 Localized enlarged lymph nodes; R92.331 Mammographic heterogeneous density, right breast
CPT/HCPCS: 76641; 77061; 77065; G0279

== ENCOUNTER 2024-12-03 09:25 | Outpatient (CLI) | payer BC, SELFPAY ==
--- OUTSIDE RECORDS SUMMARY | 2024-10-14 12:30 | XMS_ITS | Encounter Summary ---
Author Organization [facility] Address [address] [place] [address] Care Team Providers Care Dry Kiln Operator Helper Name Role Phone Tyler Santana MD Primary Care Provider [phone] Encounter Details Date Type Department Care Team (Latest Contact Info) Description 10/14/2024 12:30 PM EDT Clinical Support No Requirements [facility] CARDIOLOGY [address] [place] [address] Pacemaker-dependent due to [place] cardiac rhythm insufficient to support life [I49.8, Z95.0] (Primary Dx) Social History Tobacco Use Types Packs/Day Years Used Date Smoking Tobacco: Never Passive Smoke Exposure: Past Smokeless Tobacco: Never Alcohol Use Standard Drinks/Week Comments Never 0 (1 standard drink = 0.6 oz pur e alcohol) Comments Unknown Sex and Gender Information Value Date Recorded Sex Assigned at Not on file Legal Sex Female 12:36 PM EDT Gender Identity Not on file Sexual Orientation Not on file documented as of this encounter Plan of Treatment Upcoming Encounters Date Type Department Care Team (Late st Contact Info) Description 12/12/2024 2:30 PM EDT Office Visit [facility] PULMONARY & CRITICAL CARE MEDICINE [address] [phone] 12/12/2024 3:00 PM EDT Office Visit [facility] PULMONARY & CRITICAL CARE MEDICINE 3000 [facility] [address] [place] [phone] Julian Norman MD [address] [place], [place] [id number] 12/27/2024 10:45 AM EDT Office Visit [facility] RHEUMATOLOGY [address] [facility] [address] [place] [address] Sandrita Carlson, CERTIFIED PEDIATRIC NURSE PRACTITIONER [address] [id number] 02/24/2025 1:00 PM EDT Office Visit [facility] CARDIOLOGY [address] [place] [address] Sade Srinivasan MD [address] [place] [address] 02/24/2025 1:00 PM EDT Clinical Support No Requirements [facility] CARDIOLOGY [address] [place] [address] 04/25/2025 9:45 AM EST Office Visit [facility] RHEUMATOLOGY [address] [address] Papa Cruz DO [address] [id number] documented as of this encounter Visit Diagnoses Diagnosis Pacemaker-dependent due to [place] cardiac rhythm insufficient to support life [I49.8, Z95.0]- Primary documented in this encounter Care Teams Dry Kiln Operator Helper Relationship Specialty Start Date End Date Tyler Santana MD [address] [place] [address] PCP - General Family Medicine 02/27/23 documented as of this encounter
--- OUTSIDE RECORDS SUMMARY | 2024-10-14 12:30 | XMS_ITS | Encounter Summary ---
Author Organization [facility] Address [address] [place] [address] Care Team Providers Care Tuber Machine Cutter Name Role Phone Tyler Santana MD Primary Care Provider Reason for Referral * Consultation (Routine) - Authorized Specialty Diagnoses / Procedures Referred By Contact Referred To Contact Pulmonary Disease / Pulmonology Diagnoses Histoplasma capsulatum infection Multiple lung nodules on CT Procedures WA OFFICE/OUTPATIENT NEW MODERATE MDM 45 MINUTES Sade Srinivasan MD [address] [place] [address] Phone: tel: fax: Julian Norman MD [address] [place] [address] Phone: tel: fax: Referral ID Status Reason Start Date Expiration Date V isits Requested Visits Authorized [id number] Authorized 10/14/2024 01/13/2026 1 1 Reason for Visit * Reason Comments Pacemaker Check Results Pt states she is her e today to discuss results of stress test. Results are in Epic. Encounter Details Date Type Department Care Team (Late st Contact Info) Description 10/14/2024 12:30 PM EDT Office Visit [facility] CARDIOLOGY [address] [place] [address] Sade Srinivasan MD [address] [place] [address] Vasovagal syncope (Primary Dx); Histoplasma capsulatum infection; Multiple lung nodules on CT; Pacemaker-dependent due to [place] cardiac rhythm insufficient to support life Social History Tobacco Use Types Packs/Day Years Used Date Smoking Tobacco: Never Passive Smoke Exposure: Past Smokeless Tobacco: Never Tobacco Cessation:Counseling Given: Yes Alcohol Use Standard Drinks/Week Comments Never 0 [...] Sign Reading Time Taken Comments Blood Pressure 130/80 10/14/2024 12:43 PM EDT Pulse 94 10/14/2024 12:43 PM EDT Temperature - - Respiratory Rate - - Oxygen Saturation 96% 10/14/2024 12:43 PM EDT Inhaled Oxygen Concentration - - Weight 59 kg (130 lb) 10/14/2024 12:43 PM EDT Height 160 cm (5' 3 ) 10/14/2024 12:43 PM EDT Body Mass Index 23.03 10/14/2024 12:43 PM EDT documented in this encounter Progress Notes * Sade Srinivasan MD - 10/14/2024 12:30 PM EDT Images from the original note were not included. [facility] Provider Note Date: 10/14/2024 Name: Jacki Heart : 1955 PCP: Tyler Santana MD Chief Complaint Patient presents with Pacemaker Check Results Pt states she is here today to discuss results of stress test. Results are in Epic. Subjective History of Present Illness Jacki Heart is a 69 y.o. female who presents today for follow up HTN, chronic systolic heart failure,Paroxysmal SVT,pacemaker Would like to go over results of Stress testing,Holter monitor and Bone density scan.States that was started on Fosamax DT bone scan.Reports no side effects with medication and has michael on for 2 weeks. Pacer checked today. No remote reports since April 2024. No more syncopal episodes. Reports that legs are not as weak. Reports that has to drink water.Can not walk to far unless drinking a lot a water. Denies dizziness. Is taking time more time when rising. Wrists are feeling better than they did. Has some type of a tingle that goes fast and swimming in chest on left side over top of pacemaker and states that that side has been sore the last couple days. No swelling except for occasional wrist with arthritis. No shortness of breath unless coughing a lot. Has no swelling. Has no new concerns or issues.Just would like to figure out why was passing out. 10/14/2024 Updated Cardiology history 1. Ventricular tachycardia arrest secondary to complete heart block status post dual-chamber pacemaker 2018 at [facility]. 2. 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 3. Low normal EF 50% and LVH - echo 07/14/2023 4. Vasovagal syncope x2 (Jun and August 2024) 09/16/2024 nuclear stress test-EF. No evidence of ischemia. Holter Monitor 10/07/24 08/23/2024 labs from rheumatology-cholesterol 168, triglycerides 54, HDL 82, LDL 75, hemoglobin A1c 4.4, BUN and creatinine normal, sodium low at 133 but stable, potassium 4.2, LFTs normal, EGFR 67, 06/24/2024 Echo-?? Left ventricular ejection fraction appears to be 51 - 55%. ?? Left ventricular diastolic function was indeterminate. ?? Moderate tricuspid valve regurgitation is present. Estimated right ventricular systolic pressurefrom tricuspid regurgitation is moderately elevated (45-55 mmHg). No Known Allergies Current Outpatient Medications: alendronate (FOSAMAX) 70 MG tablet, Take 1 tablet by mouth Every 7 (Seven) Days., Disp: 4 tablet, Rfl: 11 Ascorbic Acid (VITAMIN C PO), Take 1 tablet by mouth Daily., Disp: , Rfl: Calcium Magnesium Zinc 333-133-5 MG tablet, Take by mouth., Disp: , Rfl: ferrous sulfate 325 (65 FE) MG tablet, TAKE 1 TABLET BY MOUTH 3 TIMES A WEEK FOR 30 DAYS, Disp: , Rfl: folic acid (FOLVITE) 1 MG tablet, Take 1 tablet by mouth Daily., Disp: 90 tablet, Rfl: 1 levothyroxine (SYNTHROID, LEVOTHROID) 150 MCG tablet, Take 1 tablet by mouth Every Morning., Disp: , Rfl: lisinopril (PRINIVIL,ZESTRIL) 5 MG tablet, Take 1 tablet by mouth Daily., Disp: 90 tablet, Rfl: 3 methotrexate 2.5 MG tablet, Take 6 tablets by mouth 1 (One) Time Per Week., Disp: 72 tablet, Rfl: 1 metoprolol succinate XL (TOPROL-XL) 50 MG 24 hr tablet, Take 1 tablet by mouth Daily., Disp: 90 tablet, Rfl: 3 naproxen sodium (ALEVE) 220 MG tablet, Take 1 tablet by mouth Every 12 (Twelve) Hours As Needed forMild Pain., Disp: 180 tablet, Rfl: 1 Milan-3 Fatty Acids (OMEGA 3 500 PO), Take 1 tablet by mouth Daily., Disp: , Rfl: predniSONE (DELTASONE) 5 MG tablet, Take 1 tablet by mouth Daily., Disp: 90 tablet, Rfl: 1 sulfaSALAzine (AZULFIDINE) 500 MG tablet, Take 3 tablets by mouth 2 (Two) Times a Day., Disp: 540 tablet, Rfl: 1 Past Medical History: Diagnosis Date Atrial fibrillation Histoplasmosis Hypercalcemia Hypertension Osteopenia Rheumatoid arthritis Past Surgical History: Procedure Laterality Date CARPAL TUNNEL RELEASE CATARACT EXTRACTION GANGLION CYST EXCISION Left PACEMAKER IMPLANTATION SQUAMOUS CELL CARCINOMA EXCISION TUBAL ABDOMINAL LIGATION History reviewed. No pertinent family history. Social History Socioeconomic History Marital status: Tobacco Use Smoking status: Never Passive exposure: Past Smokeless tobacco: Never Vaping Use Vaping status: Never Used Substance and Sexual Activity Alcohol use: Never Drug use: Never Sexual activity: Defer Objective Vital Signs: BP 130/80 (BP Location: Right arm, Patient Position: Sitting, Cuff Size: Adult) Pulse 94 Ht 160cm (63 ) Wt 59 kg (130 lb) SpO2 96% BMI 23.03 kg/m?? Estimated body mass index is 23.03 kg/m?? as calculated from the following: Height as of this encounter: 160 cm (63 ). Weight as of this encounter: 59 kg (130 lb). Physical Exam Constitutional: Appearance: Normal appearance. She is well-developed. HENT: Head: Normocephalic and atraumatic. Eyes: General: No scleral icterus. Pupils: Pupils are equal, round, and reactive to light. Cardiovascular: Rate and Rhythm: Normal rate and regular rhythm. Heart sounds: Normal heart sounds. No murmur heard. Pulmonary: Breath sounds: Normal breath sounds. No wheezing or rhonchi. Musculoskeletal: Right lower leg: No edema. Left lower leg: No edema. Skin: Capillary Refill: Capillary refill takes less than 2 seconds. Coloration: Skin is not cyanotic. Nails: There is no clubbing. Neurological: Mental Status: She is alert and oriented to person, place, and time. Motor: No weakness. Gait: Gait normal. Psychiatric: Mood and Affect: Mood normal. Behavior: Behavior is cooperative. Thought Content: Thought content normal. Cognition and Memory: Memory normal. Assessment and Plan Diagnoses and all orders for this visit: 1. Vasovagal syncope (Primary) 2. Histoplasma capsulatum infection - Ambulatory Referral to Pulmonology 3. Multiple lung nodules on CT - Ambulatory Referral to Pulmonology 4. Pacemaker-dependent due to [place] cardiac rhythm insufficient to support life PLAN: - She has had 2 syncopal episodes. Workup for both have been negative. They sound very vasovagal innature. Discussed what vasovagal syncope is in triggers. Also discussed saying hydrated in order totry to minimize episodes. - History of disseminated histoplasmosis and multiple lung nodules on CT. Infectious disease providers at had wanted her to see pulmonology. She has not gotten any calls about referral to their pulmonology department for several months. Will refer her to [facility] internally. - Pacemaker shows good battery life and lead function. - Monitor and stress test reviewed with patient and her family today. Follow Up Return in about 3 months (around 01/14/2025) for Recheck symptoms, PM/ICD check. Annie Srinivasan MD Cardiology and Sleep [facility] 10/14/2024 Please note that this explicitly excludes time spent on other separate billable services such as performing procedures or test interpretation, when applicable. This note was created using dictation software which occasionally transcribes nonsensical phrases. Please contact the provider if any clarification is needed. documented in this encounter Plan of Treatment Upcoming Encounters Date Type Department Care Team (Late st Contact Info) Description 12/12/2024 2:30 PM EDT Office Visit [facility] PULMONARY & CRITICAL CARE MEDICINE [address] [place] [address] 12/12/2024 3:00 PM EDT Office Visit [facility] PULMONARY & CRITICAL CARE MEDICINE [address] [place] [address] Julian Norman MD [address] [place] [address] 12/27/2024 10:45 AM EDT Office Visit [facility] RHEUMATOLOGY [address] [address] Sandrita Carlson APRN [address] [address] 02/24/2025 1:00 PM EDT Office Visit [facility] CARDIOLOGY [address] [address] Sade Srinivasan MD [address] [place] [address] 02/24/2025 1:00 PM EDT Clinical Support No Requirements [facility] CARDIOLOGY [address] [address] 04/25/2025 9:45 AM EST Office Visit [facility] RHEUMATOLOGY [address] [address] Papa Cruz DO [address] [phone] Scheduled Referrals Name Type Priority Associated Diagnoses Order Schedule Ambulatory Referral to Pulmonology Outpatient Referral Routine Histoplasma capsulatum infection Multiple lung nodules on CT Ordered: 10/14/2024 documented as of this encounter Visit Diagnoses Diagnosis Vasovagal syncope- Primary Syncope and collapse Histoplasma capsulatum infection Histoplasma capsulatum, without mention of manifestation Multiple lung nodules on CT Pacemaker-dependent due to [place] cardiac rhythm insufficient to support life documented in this encounter Care Teams Tuber Machine Cutter Relationship Specialty Start Date End Date Tyler Santana MD [address] [place] [address] PCP - General Family Medicine 02/27/23 documented as of this encounter
--- OUTSIDE RECORDS SUMMARY | 2024-12-03 09:28 | XMS_ITS | Encounter Summary ---
[facility] Address [address] [place] [address] Care Team Providers Care Caustic Preparer Name Role Phone Tyler Santana MD Primary Care Provider [phone] Encounter Details Date Type Department Care Team (Late st Contact Info) Description 10/07/2024 Telephone [facility] CARDIOLOGY [address] [place] [address] Debi Anderson, KJ [address] [place] [address] [place] [address] Social History Tobacco Use Types Packs/Day Years [...] on file documented as of this encounter Miscellaneous Notes * Telephone Encounter - Blanca Benson RegSched Rep - 10/08/2024 2:52 PM EDT Spoke to Александр about issue. He is looking into it. * Telephone Encounter - Blanca Benson RegSched Rep - 10/08/2024 2:32 PM EDT LVM for Александр Aguiar (rep) to return my call. * Telephone Encounter - Sade Srinivasan MD - 10/07/2024 5:49 PM EDT Reviewed the holter report. 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 I think who ever scored this is not aware of normal pacemaker function and needs some education. * Telephone Encounter - Donita Welch, KACI - 10/07/2024 2:18 PM EDT Called Rodriguez and related holter is in Dr. Srinivasan's task basket for review. * Telephone Encounter - Kimberly Cui RegSched Rep - 10/07/2024 2:07 PM EDT Liz Aguilar called stating the pt had abnormal Holter results. They can be reached @ [phone] reference # [id number] documented in this encounter Plan of Treatment Upcoming Encounters Date Type Department Care Team (Late st Contact Info) Description 12/12/2024 2:30 PM EDT Office Visit [facility] PULMONARY & CRITICAL CARE MEDICINE [address] [facility] [address] [place] [address] 12/12/2024 3:00 PM EDT Office Visit [facility] PULMONARY & CRITICAL CARE MEDICINE [address] [facility] [address] [place] [address] Julian Norman MD [address] [place], [place] [id number] 12/27/2024 10:45 AM EDT Office Visit [facility] RHEUMATOLOGY [address] [phone] Sandrita Carlson, KJ [address] [phone] 02/24/2025 1:00 PM EDT Office Visit [facility] C[facility] [address] [place] [address] Sade Srinivasan [place] [address] 02/24/2025 1:00 PM EDT Clinical Support No Requirements [facility] [address] [place] [address] [place] [address] 04/25/2025 9:45 AM EST Office Visit [facility]UM[facility] [address] [address] Papa Cruz DO [address] [address] documented as of this encounter Visit Diagnoses Not on filedocumented in this encounter Care Teams Caustic Preparer Relationship Specialty Start Date End Date Tyler Santana MD [address] [place] [address] PCP - General Family Medicine 02/27/23 documented as of this encounter
--- OUTSIDE RECORDS SUMMARY | 2024-12-03 09:29 | XMS_ITS | Encounter Summary ---
[facility] Address [address] [place] [address] Care Team Providers Care Authorization Nurse Name Role Phone Tyler Santana MD Primary Care Provider [phone] Reason for Visit * Reason Onset Date Comments [facility] - SCHEDULING REQUEST 11/29/2024 Encounter Details Date Type Department Care Team (Late st Contact Info) Description 11/29/2024 Telephone [facility] CARDIOLOGY [address] [place] [address] Sade Srinivasan MD [address] [place] [address] [facility] - SCHEDULING REQUEST Social History Tobacco Use Types Packs/Day Years [...] encounter Miscellaneous Notes * Telephone Encounter - Jillian Corey RegSched Rep - 11/29/2024 2:59 PM EDT LVM FOR PT - PT CAN KEEP EXISTING APPOINTMENT OR BE RESCHEDULED OUT TO NEXT AVAILABLE AT LOCATION OF HER CHOICE. PATIENT WAS ADVISED ON VM THAT NEXT AVAILABLE WOULD BE A FEW WEEKS OUT. OK FOR HUB TO RESCHEDULE APPOINTMENT IF NEEDED * Telephone Encounter - Maryellen Arevalo RegSched Rep - 11/29/2024 2:22 PM EDT Caller: Jacki Heart Relationship to patient: Self Best call back number: [phone] Chief complaint: PT WANTS TO RESCHEDULE DEVICE CHECK & APPOINTMENT BECAUSE SHE HAD ANOTHER APPOINTMENT ON 12/27/24 IN [place]. *AFTER 12:30 PM Type of visit: DEVICE CHECK & F/U Requested date: 12/27/24 If rescheduling, when is the original appointment: 12/26/24 documented in this encounter Plan of Treatment Upcoming Encounters Date Type Department Care Team (Late st Contact Info) Description 12/12/2024 2:30 PM EDT Office Visit [facility] PULMONARY & CRITICAL CARE MEDICINE [address] [place] [phone] 12/12/2024 3:00 PM EDT Office Visit [facility] PULMONARY & CRITICAL CARE MEDICINE [address] [facility] [address] [place] [address] Julian Norman MD [address] [place] [address] 12/27/2024 10:45 AM EDT Office Visit [facility] RHEUMATOLOGY [address] [phone] Sandrita Carlson APRN [address] [address] 02/24/2025 1:00 PM EDT Office Visit [facility] CARDIOLOG[facility] [address] [place] [address] Sade Srinivasan MD [address] [place] [address] 02/24/2025 1:00 PM EDT Clinical Support No Requirements [facility] [address] [place] [address] 04/25/2025 9:45 AM EST Office Visit [facility] RHEUM[facility]OLOG[facility] [address] [address] Papa Cruz DO [address] [phone] documented as of this encounter Visit Diagnoses Not on filedocumented in this encounter Care Teams Authorization Nurse Relationship Specialty Start Date End Date Tyler Santana MD [address] [place] [address] PCP - General Family Medicine 02/27/23 documented as of this encounter
--- OUTSIDE RECORDS SUMMARY | 2024-12-03 09:29 | XMS_ITS | Clinical Summary ---
Author Organization [facility] Address [address] [place] [address] Care Team Providers Care Rn Imcu Name Role Phone Flor Jackson APRN Primary Care Provider [phone] Allergies No known active allergies Medications Synthroid [...] Description 09/12/2024 10:00 AM EDT Office Visit 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 [address] [place] [address] Ramona Maldonado MD [address] [address] Health Maintenance Due Date Last Done Comments [...] - Risk 60-74 years 1-dose series) 2013 [id number] Vaccine ( season) 2024 05/15/2021, 08/19/2020, 08/17/2020, Additional history exists [facility]-Influenza Vaccine (#1) 01/06/202502/09, 02/10/2023, 02/04/2022, Additional history exists [facility]-Depression Screening 09/12/2025 09/12/2024, 0512/2024 [facility]Y-Hepatitis C Screening Completed 05/24/2016 [facility]Y-Zoster Vaccines Completed 12/14/2020, 0 HPV Vaccines Aged Out No longer eligi [...] Procedure Name Priority Date/Time Associated Diagnosis Comments ACUTE HEPATITIS PANEL Routine 05/24/2016 6:13 AM EST from Last 3 Months or Most Recently Relevant to Health Maintenance Results * Acute Hepatitis Panel (05/24/2016 6:13 AM EST) Hepatitis B Surf Antigen NEGATIVE Reference Value: Negative SUNQUEST Hepatitis C Antibody NEGATIVE Reference Range: Negative SUNQUEST Hepatitis A Antibody IgM NEGATIVE Reference Value: Negative [facility]QUEST External Hepatitis B Core IgM (HBCM) NEGATIVE Reference Value: Negative SUNQUEST 05/24/2016 6:13 AM EST 05/24/2016 7:04 AM EST us Historical Provider LAB BLOOD ORDERABLES Maris l Result SUNQUEST from Last 3 Months or Most Recently Relevant to Health Maintenance Insurance [facility] [address] [facility] Care Teams Rn Imcu Relationship Specialty Start Date End Date Flor Jackson, [employer] [address] [place] [address] PCP - General 09/18/20
--- OUTSIDE RECORDS SUMMARY | 2024-12-03 09:29 | XMS_ITS | Encounter Summary ---
Author Organization [facility] Address [address] [place] [address] Care Team Providers Care Field Clerk Name Role Phone Tyler Santana MD Primary Care Provider [phone] Encounter Details Date Type Department Care Team (Latest Contact Info) Description 10/14/2024 Travel Social History Tobacco Use Types Packs/Day [...] Description 12/12/2024 2:30 PM EDT Office Visit [facility] PULMONARY & CRITICAL CARE MEDICINE [address] [facility] [address] [place] [address] 12/12/2024 3:00 PM EDT Office Visit [facility] PULMONARY & CRITICAL CARE MEDICINE [address] [facility] [address] [place] [phone] Julian Norman MD [address] [place] [address] 12/27/2024 10:45 AM EDT Office Visit [facility] RHEUMATOLOGY [address] [address] Sandrita Carlson APRN [address] [phone] 02/24/2025 1:00 PM EDT Office Visit [facility] CARDIOLOGY [address] [place] [address] Sade Srinivasan MD [address] [place] [address] 02/24/2025 1:00 PM EDT Clinical Support No Requirements [facility] [address] [place] [address] 04/25/2025 9:45 AM EST Office Visit [facility] RHEUMATOLOGY [address] [address] Papa Cruz DO [address] [phone] documented as of this encounter Visit Diagnoses Not on filedocumented in this encounter Care Teams Field Clerk Relationship Specialty Start Date End Date Tyler Santana MD [address] [place] [address] PCP - General Family Medicine 02/27/23 documented as of this encounter
--- OUTSIDE RECORDS SUMMARY | 2024-12-03 09:29 | XMS_ITS | Encounter Summary ---
Author Organization [facility] Address [address] [place] [address] Care Team Providers Care Jewelry Model Maker Name Role Phone Tyler Santana MD Primary Care Provider [phone] Encounter Details Date Type Department Care Team (Latest Contact Info) Description 05/22/2016 Hospital Encounter Denins Abreu MD [address] [facility] [address] [place] [address] Social History Tobacco Use Types Packs/Day Years Used Date Smoking Tobacco: Never Assessed Comments Unknown Sex and Gender Information Value Date Recorded Sex Assigned at Not on file Legal Sex Female 12:36 PM EDT Gender Identity Not on file Sexual Orientation Not on file documented as of this encounter Plan of Treatment Upcoming Encounters Date Type Department Care Team (Late st Contact Info) Description 12/12/2024 2:30 PM EDT Office Visit [facility] PULMONARY & CRITICAL CARE MEDICINE [address] [facility] [address] [place] [address] 12/12/2024 3:00 PM EDT Office Visit [facility] PULMONARY & CRITICAL CARE MEDICINE [address] [facility] [address] [place] [address] Julian Norman MD [address] [place], [place] [phone] 12/27/2024 10:45 AM EDT Office Visit [facility] RHEUM[facility]OLOGY [address] [phone] Sandrita Carlson APRN [address] [phone] 02/24/2025 1:00 PM EDT Office Visit [facility] CARDIOLOG[facility] [address] [place] [address] Sade Srinivasna MD [address] [place] [address] 02/24/2025 1:00 PM EDT Clinical Support No Requirements [facility] C[facility] [address] [place] [address] 04/25/2025 9:45 AM EST Office Visit [facility] RHEUM[facility]OLOGY [address] [address] Papa Cruz DO [address] [phone] documented as of this encounter Visit Diagnoses Not on filedocumented in this encounter Care Teams Jewelry Model Maker Relationship Specialty Start Date End Date Tyler Santana MD [address] [place] [address] PCP - General Family Medicine 02/27/23 documented as of this encounter
--- OUTSIDE RECORDS SUMMARY | 2024-12-03 09:29 | XMS_ITS | Clinical Summary ---
Author Organization [facility] Address [address] [place] [address] Care Team Providers Care Sausage Maker Name Role Phone Tyler Santana MD Primary Care Provider [phone] Allergies No known active allergies Medications levothyroxine (SYNTHROID, LEVOTHROID) 150 MCG tablet Take 1 tablet by mouth Every Morning. 3 Active metoprolol succinate XL (TOPROL-XL) 50 MG 24 hr tabletIndications :Chronic systolic heart failure,Primary hypertension Take 1 tablet by mouth Daily. 90 tablet 3 4 Active lisinopril (PRINIVIL,ZESTRIL ) 5 MG tabletIndications :Chronic systolic heart failure,Primary hypertension Take 1 tablet by mouth Daily. 90 tablet 3 4 Active Ascorbic Acid (VITAMIN C PO) Take 1 tablet by mouth Daily. Active naproxen sodium (ALEVE) 220 MG tabletIndications :Seropositive rheumatoid arthritis Take 1 tablet by mouth Every 12 (Twelve) Hours As Needed for Mild Pain. 180 tablet 1 4 Active Calcium Magnesium Zinc 333-133-5 MG tablet Take by mouth. Active ferrous sulfate 325 (65 FE) MG tablet TAKE 1 TABLET BY MOUTH 3 TIMES A WEEK FOR 30 DAYS 5 Active [place]-3 Fatty Acids (OMEGA 3 500 PO) Take 1 tablet by mouth Daily. Active predniSONE (DELTASONE) 5 MG tabletIndications :Seropositive rheumatoid arthritis,Current use of steroid medication Take 1 tablet by mouth Daily. 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 90 tablet 1 5 Active alendronate (FOSAMAX) 70 MG tabletIndications :Osteoporosis, unspecified osteoporosis type, unspecified pathological fracture presence Take 1 tablet by mouth Every 7 (Seven) Days. 4 tablet 11 5 Active Active Problems Problem Noted Date Diagnosed Date Paroxysmal SVT (supraventricular tachycardia) Assessment & Plan (09/05/2024 3:44 PM EDT): Patient was seen in [facility] ER at which time she was noted to have SVT on the monitor. She states that she felt that twinge in her chest when the episode started and the monitor went off. Patient states she was at work and drank some Gatorade but then vomited the Gatorade back up. Patient states she feels like at work she is having these episodes of where her heart just starts racing. She states that she became lightheaded and passed out. She states she was at work when this happened. She was picked up by her son and taken to the [place] ER. She states she had an episode in June where she passed out in the bathroom. Able to do pacemaker check in the office today. Patient's remote monitoring has not downloaded. Plan 14-day Holter monitor Plan to reschedule nuclear stress test. Current use of steroid medication 12/01/2023 Assessment & Plan (08/23/2024 10:07 AM EDT): 5 mg/day of prednisone for RA Ideally she would taper off. Previous attempts to do so were unsuccessful. Refill today Assessment & Plan (04/12/2024 10:14 AM EST): 5 mg/day of prednisone for RA Ideally she would taper off. Previous attempts to do so were unsuccessful. Refill today Assessment & Plan (12/01/2023 1:37 PM EDT): 5 mg/day of prednisone for RA Ideally she would taper off. Previous attempts to do so were unsuccessful. Refill today High risk medication use 12/01/2023 Assessment & Plan (08/23/2024 10:07 AM EDT): * Sulfasalazine 1500 mg PO BID for RA 1. CBC and CMP every 8-12 weeks to monitor for medication toxicity. 2. Refill today Assessment & Plan (04/12/2024 10:14 AM EST): * Sulfasalazine 1500 mg PO BID for RA 1. CBC and CMP every 8-12 weeks to monitor for medication toxicity. 2. Refill today Assessment & Plan (12/01/2023 1:37 PM EDT): * Sulfasalazine 1500 mg PO BID for RA 1. CBC and CMP every 8-12 weeks to monitor for medication toxicity. 2. Refill today Immunodeficiency due to drug therapy 12/01/2023 Assessment & Plan (08/23/2024 10:07 AM EDT): * Methotrexate 15 mg PO once/week for RA * Restarted 04/14/23 1. CBC and CMP every 8-12 weeks to monitor for medication toxicity. 2. Take folate supplements daily. 3. No recent serious infections. 4. Refill today Assessment & Plan (04/12/2024 10:14 AM EST): * Methotrexate 15 mg PO once/week for RA * Restarted 04/14/23 1. CBC and CMP every 8-12 weeks to monitor for medication toxicity. 2. Take folate supplements daily. 3. No recent serious infections. 4. Refill today Assessment & Plan (12/01/2023 1:37 PM EDT): * Methotrexate 15 mg PO once/week for RA * Restarted 04/14/23 1. CBC and CMP every 8-12 weeks to monitor for medication toxicity. 2. Take folate supplements daily. 3. No recent serious infections. 4. Refill today Primary osteoarthritis involving multiple joints 12/01/2023 Assessment & Plan (08/23/2024 10:07 AM EDT): 1. Tylenol PRN is ok as directed. 2. She has taken Tumeric as well 3. She has tried NSAIDS like Naproxen 4. She has taken Tramadol PRN 5. Historically we referred her to pain management. She never established with them Assessment & Plan (04/12/2024 10:14 AM EST): 1. Tylenol PRN is ok as directed. 2. She has taken Tumeric as well 3. She has tried NSAIDS like Naproxen 4. She has taken Tramadol PRN 5. Historically we referred her to pain management. She never established with them Assessment & Plan (12/01/2023 1:37 PM EDT): 1. Tylenol PRN is ok as directed. 2. She has taken Tumeric as well 3. She has tried NSAIDS like Naproxen 4. She has taken Tramadol PRN 5. Historically we referred her to pain management. She never established with them Syncope and collapse 06/06/2023 Assessment & Plan (09/05/2024 3:47 PM EDT): Review of labs showed that her sodium continues to be low 133. She does have consistently low sodium. She has been encouraged to keep her electrolytes replenished. She had an episode where she drank the Gatorade and then threw up. She states she was at work when this happened and then she passed out. She was told in [place] ER that she may have been slightly dehydrated. Patient states she did feel a little better after the IV fluids. Assessment & Plan (06/25/2024 1:37 PM EST): I think this may have been a hypotensive episode. Blood pressure is controlled currently. I think she needs to eat more regularly and drink plenty of fluids. Encouraged some sodium intake especially if she is getting stressed or heated. Assessment & Plan (07/11/2023 11:32 AM EST): Most likely due to dehydration. No syncopal episodes since ER visit. Nuclear stress test on 04/03/2023 that revealed no evidence of ischemia.Echocardiogram today revealed an LVEF of 52%, mid anteroseptal dyskinesis, mild mitral regurgiation and normal RVSP. No events noted on device interrogation at last visit. Assessment & Plan (06/06/2023 9:02 AM EST): Patient presented to the emergency department on 06/01/2023 with syncope. She was in [employer] when she felt hot, lightheaded and tried to get to her car. She made it to the parking lot and a friend was able to help her down to the ground, she did not hit her head but she did lose consciousness. She did not notice any chest pain, shortness of breath or symptoms prior to passing out. She was evaluated in the ER and given IV fluids. Her creatinine was elevated at 1.3. She was told that the episode was most likely due to dehydration. She recently completed a nuclear stress test on 04/03/2023 that revealed no evidence of ischemia. No events noted on device interrogation -We will update echocardiogram -Increase water intake to avoid dehydration Chronic systolic heart failure 08/29/2022 Overview (08/29/2022): EF 50%. Euvolemic on medical therapy. Will watch. May need pacemaker upgrade in the future. Assessment & Plan (07/11/2023 11:07 AM EST): EF 52% on echocardiogram today. Currently stable and euvolemic. - Continue current medical therapy Assessment & Plan (06/06/2023 9:00 AM EST): Stable and euvolemic on exam. 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 There is no remote monitoring download in our records since April. Unable to do a pacemaker check in the office today due to Dr. Srinivasan being in [place]. Placed heart monitor to assess under sensing or over sensing of pacemaker. Assessment & Plan (06/25/2024 1:37 PM EST): Good battery life and lead function on pacemaker. No signs of issues there. Assessment & Plan (04/16/2024 2:40 PM EST): Good battery life and lead function. Checked on remote monitoring, was able to connect with her remote monitoring that is working well. Assessment & Plan (06/06/2023 8:59 AM EST): Device interrogation today shows good battery life and lead function. No events noted. 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 I would like to make sure this does not represent a reactivation of her histoplasmosis. Will refer to ID and check urine antigen. I believe she had cleared urine antigen before. Also concerned that her pulmonary pressures are elevated on echo when they were not before. Orders: Ambulatory Referral to Infectious Disease Histoplasma Ag Ur - Urine, Urine, Clean Catch; Future Seropositive rheumatoid arthritis 06/14/2016 Assessment & Plan (08/23/2024 10:07 AM EDT): * She has seropositive erosive RA. * RF was positive 10/04/2005, her value was 88.7 (< 14.0 normal) * CCP was positive > 250 on 12/16/2005 * Hand x-rays have also demonstrated erosive changes, on 07/03/2012 these erosive changes were documented as stable. * Treatments/interventions tried include: Plaquenil, methotrexate, sulindac, prednisone, Enbrel, sulfasalazine, Tylenol, Remicade, Aleve, Tramadol, Tumeric 1. 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 She has seen infectious disease at . She will follow up with them 08/28/24. She is concerned for recurrence with recent productive cough. No fevers. 2. Continue daily low dose prednisone. She has been unable to taper. Refill today 3. Plaquenil was discontinued 01/13/21 due to ocular toxicity per [facility]. 4. She has right wrist synovitis. Can consider injection if no improvement. 5. We will avoid biologic agents due to her history of having a serious infection (disseminated histoplasmosis) 6. Tylenol Arthritis is okay to try 7. She tries to limit/avoid oral NSAIDS due to renal disease. 8. She historically took herself off of Tramadol 9. Continue/refill MTX & folic acid for now. She should let us know if ID recommends cessation. 10. Continue/refill sulfasalazine 11. Labs today 12. RTC 4 months Assessment & Plan (04/12/2024 10:14 AM EST): * She has seropositive erosive RA. * RF was positive 10/04/2005, her value was 88.7 (< 14.0 normal) * CCP was positive > 250 on 12/16/2005 * Hand x-rays have also demonstrated erosive changes, on 07/03/2012 these erosive changes were documented as stable. * Treatments/interventions tried include: Plaquenil, methotrexate, sulindac, prednisone, Enbrel, sulfasalazine, Tylenol, Remicade, Aleve, Tramadol, Tumeric 1. 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 She has seen infectious disease at . 2. Continue daily low dose prednisone. She has been unable to taper. Refill today 3. Plaquenil was discontinued 01/13/21 due to ocular toxicity per [facility]. 4. She has right wrist synovitis. We will call in prednisone taper. Can consider injection if no improvement. 5. We will avoid biologic agents due to her history of having a serious infection (disseminated histoplasmosis) 6. Tylenol Arthritis is okay to try 7. She tries to limit/avoid oral NSAIDS due to renal disease. 8. She historically took herself off of Tramadol 9. Continue/refill MTX & folic acid 10. Continue/refill sulfasalazine 11. Labs today 12. RTC 4 months Assessment & Plan (12/01/2023 1:37 PM EDT): * She has seropositive erosive RA. * RF was positive 10/04/2005, her value was 88.7 (< 14.0 normal) * CCP was positive > 250 on 12/16/2005 * Hand x-rays have also demonstrated erosive changes, on 07/03/2012 these erosive changes were documented as stable. * Treatments/interventions tried include: Plaquenil, methotrexate, sulindac, prednisone, Enbrel, sulfasalazine, Tylenol, Remicade, Aleve, Tramadol, Tumeric 1. 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 She has seen infectious disease at . 2. Continue daily low dose prednisone. She has been unable to taper. Refill today 3. Plaquenil was discontinued 01/13/21 due to ocular toxicity per [facility]. 4. Follow up in 4 months. 5. We have tried to avoid biologic agents due to her history of having a serious infection (disseminated histoplasmosis) 6. We gave her a handout on RA to take home and review. 7. She tries to limit/avoid oral NSAIDS due to renal disease. 8. She historically took herself off of Tramadol 9. Continue/refill MTX & folic acid 10. Continue/refill sulfasalazine Hypercalcemia 01/15/2015 CKD (chronic kidney disease) 05/29/2014 Mixed hyperlipidemia 05/29/2014 Hypertension 05/29/2014 Assessment & Plan (06/25/2024 1:37 PM EST): Controlled. Continue current medications. May be getting hypotensive. Assessment & Plan (04/16/2024 2:40 PM EST): Well-controlled. Continue current medications. Monitoring at home as well. Anemia 05/29/2014 Hypothyroidism 05/29/2014 Encounters Date Type Department Care Team Description 11/29/2024 Telephone [facility] C[facility]IOLOGY [address] [place] [phone] Sade Srinivasan MD [facility]AM[facility]O - SCHEDULING REQUEST 10/14/2024 12:30 PM EDT Clinical Support No Requirements [address] [place] [id number] Pacemaker-dependent due to curyung cardiac rhythm insufficient to support life [I49.8, Z95.0] (Primary Dx) 10/14/2024 12:30 PM EDT Office Visit [address] [place] [address] Sade Srinivasan MD Vasovagal syncope (Primary Dx); Histoplasma capsulatum infection; Multiple lung nodules on CT; Pacemaker-dependent due to curyung cardiac rhythm insufficient to support life 10/14/2024 Travel 10/07/[address] [place] [phone] Debi Anderson APRN 09/20/2024 11:00 AM EDT - 09/20/2024 11:59 PM EDT Hospital Encounter [address] [phone] Sandrita Carlson, LOG STACKER OPERATOR Postmenopause Discharge Disposition: Home or Self Care 09/20/2024 Travel 09/16/2024 5:00 AM EDT Outside Facility Service [address] [place] [address] Sade Srinivasan MD Complete heart block; Pacemaker-dependent due to curyung cardiac rhythm insufficient to support life; Syncope and collapse 09/05/2024 3:30 PM EDT Ancillary Procedure [address] [place] [id number] Syncope and collapse; Paroxysmal SVT (supraventricular tachycardia) 09/05/2024 2:00 PM EDT Office Visit [facility] [address] [place] [address] [place] [phone] Debi Anderson, KJ Syncope and collapse (Primary Dx); Paroxysmal SVT (supraventricular tachycardia); Pacemaker-dependent due to curyung cardiac rhythm insufficient to support life 09/05/2024 Travel from Last 3 Months Immunizations Immunization Administration Dates Next Due COVID-19 (MODERNA) 12YRS+ (SPIKEVAX) 08/17/2020, 07/30/2020 Influenza, Unspecified 01/24/2020 Family History Relation Name Status Comments Brother 2 Alive Father Mother Sister 3 Alive Social History Tobacco Use Types Packs/Day Years [...] Pulse 94 10/14/2024 12:43 PM EDT Temperature 36.1 C (97 F) 08/23/2024 9:39 AM EDT Respiratory Rate - - Oxygen Saturation 96% 10/14/2024 12:43 PM EDT Inhaled Oxygen Concentration - - Weight 59 kg (130 lb) 10/14/2024 12:43 PM EDT Height 160 cm (5' 3 ) 10/14/2024 12:43 PM EDT Body Mass Index 23.03 10/14/2024 12:43 PM EDT Plan of Treatment Upcoming Encounters Date Type Department Care Team (Late st Contact Info) Description 12/12/2024 2:30 PM EDT Office Visit [facility] PULMONARY & CRITICAL CARE MEDICINE [address] [facility] [address] [place] [phone] 12/12/2024 3:00 PM EDT Office Visit [facility] PULMONARY & CRITICAL CARE MEDICINE [address] [facility] [address] [place] [phone] Julian Norman MD [address] [place] [address] 12/27/2024 10:45 AM EDT Office Visit [facility] RHEUMATOLOGY [address] [phone] Sandrita Carlson APRN [address] [phone] 02/24/2025 1:00 PM EDT Office Visit [facility] [place] [address] [place] [address] Sdae Srinivasan MD [address] [place] [address] 02/24/2025 1:00 PM EDT Clinical Support No Requirements [facility] [address] [place] [address] 04/25/2025 9:45 AM EST Office Visit [facility] RHEUMAT[facility] [address] [phone] Papa Cruz DO [address] [id number] Health Maintenance Due Date Last Done Comments Pneumococcal Vaccine 50+ (1 of 2 - PCV) 02/14/1972 TDAP/TD VACCINES (1 - Tdap) 02/14/1972 MAMMOGRAM 1993 COLOGUARD 1998 COLON CANCER SCREENING 5 YEA R SIGMOIDOSCOPY 1998 COLONOSCOPY 1998 COLORECTAL CANCER SCREENING 1998 CT COLONOGRAPHY 1998 FECAL OCCULT BLOOD TEST 1998 FIT Testing (1 year) 1998 ANNUAL PHYSICAL 06/05/2022 HEPATITIS C SCREENING 06/05/2022 COVID-19 Vaccine (2023-2 5 season) 2024 05/15/2021, 08/19/2020, 08/17/2020, Additional history exists INFLUENZA VACCINE 02/05/2025 02/10/2024, , 02/04/2022, Additional history exists LIPID PANEL 08/23/2025 08/23/2024, 07/27/2017 DXA SCAN 09/20/2026 09/20/2024 ZOSTER VACCINE Completed 12/14/2020, 02/07/2020 Procedures Procedure Name Priority Date/Time Associated Diagnosis Comments REMOTE DEVICE CHECK 11/01/2024 1 :26 AM EDT DEXA BONE DENSITY AXIAL Routine 09/20/2024 11:58 AM EDT Postmenopause OUTSIDE NON-INVASIVE CARDIOLOGY STUDY Routine 09/16/2024 Complete heart block Pacemaker-dependent due to curyung cardiac rhythm insufficient to support life Syncope and collapse HOLTER MONITOR >7 DAYS UP TO 15 DAYS HOOK-UP & INTERP Routine 09/05/2024 3:27 PM EDT Syncope and collapse Paroxysmal SVT (supraventricular tachycardia) LIPID PANEL Routine 08/23/2024 10:10 AM EDT Complete heart block Pacemaker-dependent due to curyung cardiac rhythm insufficient to support life Syncope and collapse from Last 3 Months or Most Recently Relevant to Health Maintenance Results * DEXA Bone Density Axial (09/20/2024 11:58 AM EDT) Anatomical Region Laterality Modality Wrist, Hip, L-spine N/A Other 09/20/2024 1:33 PM EDT Impressions 09/20/2024 2:05 PM EDT Osteoporosis of the left femoral neck. Osteopenia of the right femoral neck, and total left hip. The ten year fracture risk assessment was not calculated because some T-scores were at or below -2.5. All the treatment decisions require clinical judgment and consideration of individual patient factors, including patient preferences, co-morbidities, previous drug use, risk factors not captured in the FRAX model (frailty, falls, vitamin D deficiency, increased bone turnover, interval significant decline in bone density) and possible under or over estimation of fracture risk by FRAX. Approaches to reduce osteoporosis related fracture risk include optimizing calcium and vitamin D status, appropriate weight bearing exercises and fall-prevention measurements. The National Osteoporosis Foundation recommends (http://www.nof.org/hcp/practice/mdsuxicv-vvw-ibqgsawg-guidelines/clinicians-keena de) that FDA-approved medical therapies be considered in postmenopausal women and men aged equal or greater than 50 years with : a) hip or vertebral (clinical or morphometric) fracture; b) T-score of -2.5 or less at the spine or hip; c) Ten-year fracture probability by FRAX of greater than 3% for hip fracture of greater than 20% for major osteoporotic fracture. Secondary causes of bone loss should be evaluated if clinically indicated since the etiology of low BMD cannot be determined by BMD measurement alone. FOLLOWUP: Consider repeating the study in 2-3 years to reassess the patient's status or sooner if there is some new clinical indication. INTERVAL CHANGE: There were no equivalent studies available for comparison. At this facility, the least significant change in the BMD at the left hip with 95% confidence is 0.019737 gm/cm2 at the hip and 0.573970 g/cm2 at the lumbar spine. Report dictated by: Ramona Strauss PA-c I have personally reviewed this case and agree with the findings above: Electronically Signed: Deepak Garcia MD 09/20/2024 2:05 PM EDT Workstation ID: [id number] Narrative 09/20/2024 2:05 PM EDT DUAL-ENERGY X-RAY ABSORPTIOMETRY (DXA) INDICATION: Postmenopausal, screening for osteoporosis, rheumatoid arthritis COMPARISON: There are no equivalent studies available for comparison PROCEDURE: A DXA scan was performed using a Hologic densitometer. The lumbar spine L1, L3, and L4 was evaluated as well as bilateral total hip. The T-score compares the patient's bone mineral density with the peak bone mass of young normal patients. According to criteria established by the World Health Organization, patients with T-scores between 1.0 and 2.5 standard deviations BELOW the mean are osteopenic (low bone mass). Patients with T-scores EQUAL TO OR GREATER than 2.5 standard deviations below the mean are osteoporotic. The Z-score compares the patient bone mineral density with age and sex matched peers. According to the International Society for Clinical Densitometry's 2007 consensus conference: In women prior to menopause and men less than age 50, Z-scores, not T-scores are preferred. A Z-score of -2.0 or lower is defined as below the expected range for age and a Z-score above -2.0 is within the expected range for age. The WHO diagnostic criteria may be applied in women in the menopausal transition. Osteoporosis cannot be diagnosed in men under age 50 on the basis of BMD alone. TECHNICAL QUALITY: The study is of good technical quality. RESULTS: Lumbar Spine: The BMD measured in the L1, L3, and L4 region is 1.471 g/cm2. The average T-score is 3.8. The Z-score is 6.0. Total Hip: The BMD measured at the left total proximal femur is 0.767 g/cm2. The T-score is -1.4. The Z-score is 0.2. Femoral Neck: The BMD measured at the left femoral neck is 0.559 g/cm2. The T-score is -2.6. The Z-score is -0.7. Total Hip: The BMD measured at the right total proximal femur is 0.837 g/cm2. The T-score is -0.9. The Z-score is 0.7. Femoral neck: The BMD measured at the right femoral neck is 0.630 g/cm2. The T score is -2.0. The Z score is -0.1. Procedure Note Deepak Garcia MD - 09/20/2024 DUAL-ENERGY X-RAY ABSORPTIOMETRY (DXA) INDICATION: Postmenopausal, screening for osteoporosis, rheumatoidarthritis COMPARISON: There are no equivalent studies available for comparison PROCEDURE: A DXA scan was performed using a Hologic densitometer. The lumbar spine L1, L3, and L4 was evaluated as well as bilateral totalhip. The T-score compares the patient's bone mineral density with the peak bonemass of young normal patients. According to criteria established by the[facility], patients with T-scores between 1.0 and 2.5standard deviations BELOW the mean are osteopenic (low bone mass). Patients with T-scores EQUAL TO ORGREATER than 2.5 standard deviations below the mean are osteoporotic. The Z-score compares the patient bone mineral density with age and sexmatched peers. According to the International Society for ClinicalDensitometry's 2007 consensus conference: In women prior to menopause andmen less than age 50, Z-scores, not T-scores are preferred. A Z-score of -2.0 or lower is defined as belowthe expected range for age and a Z-score above -2.0 is within theexpected range for age. The WHO diagnostic criteria may be applied inwomen in the menopausal transition. Osteoporosis cannot be diagnosed in men under age 50 on the basis of BMDalone. TECHNICAL QUALITY: The study is of good technical quality. RESULTS: Lumbar Spine: The BMD measured in the L1, L3, and L4 region is 1.471g/cm2. The average T-score is 3.8. The Z-score is 6.0. Total Hip: The BMD measured at the left total proximal femur is 0.767g/cm2. The T-score is -1.4. The Z-score is 0.2. Femoral Neck: The BMD measured at the left femoral neck is 0.559 g/cm2.The T- score is -2.6. The Z-score is -0.7. Total Hip: The BMD measured at the right total proximal femur is 0.837g/cm2. The T-score is -0.9. The Z-score is 0.7. Femoral neck: The BMD measured at the right femoral neck is 0.630 g/cm2.The T score is -2.0. The Z score is -0.1. IMPRESSION: Osteoporosis of the left femoral neck. Osteopenia of the right femoralneck, and total left hip. The ten year fracture risk assessment was not calculated because someT-scores were at or below -2.5. All the treatment decisions require clinical judgment and consideration ofindividual patient factors, including patient preferences, co-morbidities,previous drug use, risk factors not captured in the FRAX model (frailty,falls, vitamin D deficiency, increased bone turnover, interval significant decline in bone density) andpossible under or over estimation of fracture risk by FRAX. Approaches toreduce osteoporosis related fracture risk include optimizing calcium andvitamin D status, appropriate weight bearing exercises and fall-prevention measurements. The NationalOsteoporosis Foundation recommends(http://www.nof.org/hcp/practice/hhxkbfho-clw-bwvqnepn-guidelines/clin ician s-guide) that FDA-approved medical therapies be considered in postmenopausal women and men aged equal or greater than 50 years with :a) hip or vertebral (clinical or morphometric) fracture; b) T-score of-2.5 or less at the spine or hip; c) Ten-year fracture probability by FRAXof greater than 3% for hip fracture of greater than 20% for major osteoporotic fracture. Secondary causes of bone loss should be evaluated if clinically indicatedsince the etiology of low BMD cannot be determined by BMD measurementalone. FOLLOWUP: Consider repeating the study in 2-3 years to reassess thepatient's status or sooner if there is some new clinical indication. INTERVAL CHANGE: There were no equivalent studies available forcomparison. At this facility, the least significant change in the BMD at the left hipwith 95% confidence is 0.014205 gm/cm2 at the hip and 0.631013 g/cm2 atthe lumbar spine. Report dictated by: Ramona Strauss PA-c I have personally reviewed this case and agree with the findings above: Electronically Signed: Deepak Garcia MD 09/20/2024 2:05 PM EDT Workstation ID: [id number] Sandrita Carlson APRN IMG DXA ORDERABLES Final Resul t * External Stress Procedure (09/16/2024) Anatomical Region Laterality Modality Other Isabell Vega APRN [facility] ORDERABLES Final Result * HOLTER MONITOR >7 DAYS UP TO 15 DAYS HOOK-UP & INTERP (09/05/2024 3:27 PM EDT) Heart rate (average) 84 CV SUBSTITUTED RESULTING AGENCY Heart rate minimum 60 CV SUBSTITUTED RESULTING AGENCY Heart rate maximum 136 CV SUBSTITUTED RESULTING AGENCY Anatomical Region Laterality Modality Ultrasound Narrative 10/07/2024 5:48 PM EDT A normal monitor study. Patient events were not associated with arrhythmias. No significant pauses or arrhythmias. 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 See raw data for further information. Study Description Monitor placed on patient by ALEC DRUMMOND MA on 09/05/2024 at 01:00 EDT. Instructions were provided to patient on use of holter monitor and duration of monitoring. The monitor was scanned on 10/07/2024. The patient was monitored for 13 days 23 hours and 48 minutes. Indications for this exam include SVT. Average HR: 84. Min HR: 60. Max HR: 136. Study Impressions A normal monitor study. Patient events were not associated with arrhythmias. No significant pauses or arrhythmias. 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 See raw data for further information. 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 [facility] ORDERABL ES Final Result * (ABNORMAL) Lipid Panel (08/23/2024 10:10 AM EDT) Total Cholesterol 168 0 - 200 mg/dL 08/23/2024 11:50 PM EDT [facility] Triglycerides 54 0 - 150 mg/dL 08/23/2024 11:50 PM EDT [facility] HDL Cholesterol 82(H) 40 - 60 mg/dL 08/23/2024 11:50 PM EDT [facility] LDL Cholesterol 75 0 - 100 mg/dL 08/23/2024 11:50 PM EDT [facility] VLDL Cholesterol 11 5 - 40 mg/dL 08/23/2024 11:50 PM EDT [facility] LDL/HDL Ratio 0.92 08/23/2024 11:50 PM T [facility] Blood Venipuncture / Unknown 08/23/2024 10:10 AM EDT 08/23/2024 10:10 AM EDT [facility] - 08/23/2024 11:50 PM EDT Cholesterol Reference Ranges (U.S. Department of Health and Human Services ATP III Classifications) Desirable <200 mg/dL Borderline High 200-239 mg/dL High Risk >240 mg/dL Triglyceride Reference Ranges (U.S. Department of Health and Human Services ATP III Classifications) Normal <150 mg/dL Borderline High 150-199 mg/dL High 200-499 mg/dL Very High >500 mg/dL HDL Reference Ranges (U.S. Department of Health and Human Services ATP III Classifications) Low <40 mg/dl (major risk factor for CHD) High >60 mg/dl ('negative' risk factor for CHD) LDL Reference Ranges (U.S. Department of Health and Human Services ATP III Classifications) Optimal <100 mg/dL Near Optimal 100-129 mg/dL Borderline High 130-159 mg/dL High 160-189 mg/dL Very High >189 mg/dL LDL is calculated using the NIH LDL-C calculation. Isabell Vega APRN LAB BLOOD ORDERABLE S Final Result [facility]
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
--- NOTE | 2024-12-03 10:00 | US_ITS ---
FINAL REPORT CLINICAL HISTORY: Rt breast mass -- RT BREAST BX -- MAMMOTOME -- DR SAWYER LEE FINDINGS: ULTRASOUND-GUIDED RIGHT BREAST CORE BIOPSY TECHNIQUE: Limited images were obtained to localize region of interest. The right breast was prepped in a routine sterile fashion and locally anesthetized with 1% lidocaine. Standard written informed consent was obtained. Ovoid hypoechoic tissue was noted in the superficial right breast in the retroareolar region. An 11-gauge vacuum assisted hand-held device was utilized. The needle was positioned posterior to the lesion. Multiple vacuum assisted core samples were obtained. The lesion was noted to be significantly smaller following biopsy. A biopsy marker clip was deployed in satisfactory position. Postbiopsy mammogram showed postbiopsy changes with clip in satisfactory position. Procedure was well tolerated . CONCLUSION: 1. Technically successful ultrasound guided vacuum assisted core biopsy of right breast lesion as above. 2. Biopsy marker clip deployed Histopathology results reveal proliferative fibrocystic changes without atypical hyperplasia or carcinoma. Fragments of fibroadenoma were also noted. Pathology is concordant with mammographic findings. Recommend 6 month mammographic follow-up as routine benign postbiopsy surveillance. Authenticated and ERN
--- NOTE | 2024-12-03 10:30 | US_ITS ---
FINAL REPORT CLINICAL HISTORY: ENLARGED RT AXILLARY LYMPH NODE -- RT AXILLARY FNA -- DR SAWYER LEE FINDINGS: Ultrasound guided FNA right axillary lymph node History: Adenopathy. Right breast mass. Technique: Right axilla was prepped in routine sterile fashion and locally anesthetized with 1% lidocaine. The enlarged lymph node in the right axilla was localized. Multiple passes were made with 25-gauge needle. Specimens were submitted for cytologic evaluation. Images documented needle placement within the cortex of the enlarged lymph node. IMPRESSION: Successful FNA of right axillary lymph node Recommendation: Given benign findings without evidence of malignant cells within the lymph node or breast biopsy no further imaging follow-up of the axilla is needed Authenticated and ERN
--- NOTE | 2024-12-03 10:45 | MM_ITS ---
FINAL REPORT CLINICAL HISTORY: clip placement , s/p biopsy FINDINGS: MAMMOGRAM RIGHT TECHNIQUE: Standard digital 2-D views COMPARISON: 10/25/2024 DENSITY: There are scattered areas of fibroglandular density FINDINGS: Post biopsy marker clip is noted to be in satisfactory position in the retroareolar right breast. Postbiopsy changes are noted. IMPRESSION: Biopsy marker clip in good position ASSESSMENT: A post-procedure mammogram is used to confirm the position and deployment of a breast tissue marker after a biopsy RECOMMENDATION: Given benign histopathology findings, short-term 6 month mammographic and sonographic follow-up right breast is recommended as part of normal post benign biopsy surveillance. Authenticated and ERN
== END 2024-12-03 23:59 | disposition home or self-care (01) ==
LOC: RAD 09:26
PROVIDERS: PCP Nurse Practitioner; Visit Provider Surgery
DX: N60.11 Diffuse cystic mastopathy of right breast (principal); D24.1 Benign neoplasm of right breast; R59.0 Localized enlarged lymph nodes
CPT/HCPCS: 10005; 19083; 77065; C2618